=== PATIENT | female | born 2000 | race Caucasian/White ===

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

== ENCOUNTER 2022-02-04 12:06 | Emergency (ER) | payer SELFPAY ==
[2022-02-04 12:07] VITALS: BP 131/86; PULSE 100; RESP 18; TEMP 36.1; O2SAT 97; BMI 40.3
[2022-02-04] MEDS: 0.9% Normal Saline 1,000 ML 1000 ML IV (13:48)
[2022-02-04] MEDS: Dicyclomine 20 MG/2 ML Vial IM (13:48)
[2022-02-04] MEDS: Ondansetron 4 MG/2 ML Vial IV (13:48)
--- NOTE | 2022-02-04 13:48 | EX.ED.GENINJ ---
HPI History of Present Illness Chief Complaint: Nausea/Vomiting/Diarrhea Narrative Narrative: Patient presents with nausea vomiting and some diarrhea starting earlier today. She has similar symptoms that her had. She has abdominal cramping. No fevers or chills no chest pain or shortness of breath she does not have any back pain or tearing sensation. No urinary symptoms. She is denying . PFSH PFSH Home Medications buspirone 10 mg PO PRN PRN 02/04/22 [History Last Taken Unknown] omeprazole 20 mg PO DAILY 02/04/22 [History Last Taken Unknown] ondansetron 4 mg PO Q8H #10 tab 02/04/22 [Rx Last Taken Unknown] sertraline [Zoloft] 50 mg PO DAILY 02/04/22 [History Last Taken Unknown] Allergy/AdvReac Type Severity Reaction Status Date / Time No Known Allergies Allergy Verified 10/31/20 15:08 Social History Smoking Status: Current every day smoker tobacco type: e-cigarettes ROS ROS ED ROS Narrative Past medical history: Reviewed Medications: Reviewed Social history: Noncontributory Review of systems: All systems negative except as indicated General: No fever Eyes: No visual changes ENT: No upper airway congestion, normal voice Neck: No neck pain Cardiovascular: No chest pain Respiratory: No shortness of breath or cough Gastrointestinal: As in HPI Genitourinary: No dysuria Musculoskeletal: Denies myalgias no difficulty with ambulation Skin: No rash Neurological: No memory loss, confusion or any focal weakness Psych: No recent behavioral changes Hematologic: No easy bleeding or easy bruising EXAM Physical Exam Narrative Exam Narrative: Physical exam General: Well nourished, Well developed, No Acute Distress Head: Normocephalic, Atraumatic Eyes: Conjunctiva not pale ENT: Moist mucous membranes Neck: Supple, Nontender, No lymphadenopathy Cardiovascular: Regular rate, Regular rhythm Respiratory: No distress, CTA bilaterally Abdomen: Soft, no significant abdominal tenderness Back: Nontender, Normal Inspection. Negative for: CVA tenderness Extremities: Nontender, No edema Skin: Normal color, No rash Neurological: Alert, Normal Strength, Normal Sensation Psychological: Normal affect Const Vital Signs: 02/04/22 12:07 Temperature 96.9 F L Temperature Source Temporal Pulse Rate 100 Respiratory Rate 18 Blood Pressure 131/86 H Blood Pressure Mean 101 Pulse Ox 97 Oxygen Delivery Method Room Air MDM MDM MDM Narrative Medical decision making narrative: Patient is significantly improved after Zofran and IV fluids. Work-up is unremarkable this is likely gastroenteritis, her had similar symptoms. I will discharge in stable condition Lab Data Labs: Laboratory Results - last 24 hr 02/04/22 02/04/22 14:15 14:15 WBC 12.9 H RBC 4.98 Hgb 15.7 H Hct 46.5 MCV 93.4 MCH 31.5 MCHC 33.8 RDW Std Deviation 42.5 RDW Coeff of Keila 12.2 Plt Count 351 MPV 9.6 Immature Gran % (Auto) 0.500 Neut % (Auto) 90.5 H Lymph % (Auto) 6.1 L [place] % (Auto) 2.5 Eos % (Auto) 0.1 Baso % (Auto) 0.3 Absolute Neuts (auto) 11.7 H Absolute Lymphs (auto) 0.78 L Nucleated RBC % 0 Sodium 141 Potassium 3.6 Chloride 110 H Carbon Dioxide 28.0 Anion Gap 3 L BUN 8 Creatinine 0.75 Estim Creat Clear Calc 112.01 Est GFR (MDRD) Af Amer 126 Est GFR (MDRD) Non-Af 104 BUN/Creatinine Ratio 10.6 Glucose 101 Calcium 9.2 Total Bilirubin 0.40 AST 19 ALT 32 Alkaline Phosphatase 79 Total Protein 8.0 Albumin 4.1 Globulin 3.9 Albumin/Globulin Ratio 1.1 Discharge Plan Triage Chief Complaint: Nausea/Vomiting/Diarrhea ED Provider: Patrick Pearson Dx/Rx/DC Orders Clinical Impression: Gastroenteritis Instructions: ED Gastroenteritis, Noninfectious Prescriptions: New ondansetron 4 mg tablet,disintegrating 4 mg PO Q8H Qty: 10 RF: 0 No Action buspirone 10 mg Tablet 10 mg PO PRN PRN (Reason: Anxiety) RF: 0 omeprazole 20 mg Capsule,Delayed Release(Dr/Ec) 20 mg PO DAILY RF: 0 sertraline [Zoloft] 50 mg Tablet 50 mg PO DAILY RF: 0 Primary Care Provider: Care Physician,No Primary Referrals: Care Physician,No Primary [Primary Care Provider] - 2 Days Disposition Disposition: Home, Self Care
[2022-02-04 14:31] LABS: Absolute Lymphocyte Count 0.78 X10^3/uL (0.83-4.51); Absolute Neutrophil Count 11.7 X10^3/uL (2.0-7.7); Basophil# 0.04 X10^3/uL; Basophil% 0.3 % (0-1); Eosinophil# 0.01 X10^3/uL; Eosinophils% 0.1 % (0-5); Hematocrit 46.5 % (37-47); Hemoglobin 15.7 g/dL (12.0-15.0); Lymphocyte # 0.78 X10^3/ul (0.83-4.51); Lymphocyte % 6.1 % (19-41); Mean Corp Hgb Conc 33.8 g/dL (32-36); Mean Corpuscular Hgb 31.5 pg (27.0-32.0); Mean Corpuscular Volume 93.4 fL (81-99); Mean Platelet Vol. 9.6 fl (6.2-12.0); Monocyte# 0.32 X10^3/uL; Monocyte% 2.5 % (0-10); NRBC Flagged by Analyzer 0 % (0-5); Neutrophil # 11.66 X10^3/uL (2.7-7.7); Neutrophil % 90.5 % (47-70); Platelet Count 351 K/mm3 (150-450); RBC Distribution Width CV 12.2 % (11.6-14.6); RBC Distribution Width SD 42.5 fl (35.1-43.9); Red Blood Count 4.98 M/mm3 (4.2-5.4); White Blood Count 12.9 K/mm3 (4.4-11.0)
[2022-02-04 14:50] LABS: ALB/GLOB Ratio 1.1 RATIO (0.9-2.4); AST(SGOT) 19 U/L (15-37); Alanine Aminotransfer ALT/SGPT 32 U/L (13-56); Albumin, Serum 4.1 g/dL (3.2-5.0); Alkaline Phosphatase 79 U/L (45-117); Anion Gap 3 (5-15); BUN 8 mg/dL (7-18); BUN/Creat Ratio 10.6 RATIO (10-20); Calcium,Total 9.2 mg/dL (8.5-10.1); Chloride 110 mmol/L (98-107); Creatinine, Serum 0.75 mg/dL (0.55-1.02); EST Glomerular Filtration Rate 104 mL/min (>60); Est Glom Filt Rate - Afr Amer 126 mL/min (>60); Estimated Creatinine Clearance 112.01 ml/min; Globulin 3.9 g/dL (2.2-4.2); Glucose 101 mg/dL (74-106); Potassium 3.6 mmol/L (3.5-5.1); Sodium Level 141 mmol/L (136-145)
== END 2022-02-04 16:17 | disposition home or self-care (01) ==
PROVIDERS: Emergency Provider Emergency Medicine; Visit Provider Emergency Medicine
DX: K52.9 Noninfective gastroenteritis and colitis, unspecified (principal); F17.290 Nicotine dependence, other tobacco product, uncomplicated; Z79.899 Other long term (current) drug therapy
CPT/HCPCS: 80053; 85025; 96361; 96372; 96374; 99284; J7030; A4216; J2405

== ENCOUNTER → 2024-11-14 | Outpatient (CLI) | payer MEDICAID, SELFPAY ==
[2024-11-18 05:06] LABS: Chlamydia By Nucleic Acid AMP Negative (Negative); Gonococcus By Nucleic Acid AMP Negative (Negative)
== END | disposition home or self-care (01) ==
PROVIDERS: Referring Provider Nurse Practitioner Women's Health; Visit Provider Nurse Practitioner Women's Health
DX: N89.8 Other specified noninflammatory disorders of vagina (principal); Z20.2 Contact with and (suspected) exposure to infections with a predominantly sexual mode of transmission
CPT/HCPCS: 87070; 87205; 87491; 87591

== ENCOUNTER → 2024-12-17 | Outpatient (CLI) | payer MEDICAID, SELFPAY ==
--- NOTE | 2024-12-17 13:58 | US_ITS ---
PROCEDURE: TRANSVAGINAL NON- REASON FOR EXAM: Amenorrhea COMPARISON: None. TECHNIQUE: Transvaginal pelvic ultrasound. Color and spectral doppler analysis of the ovaries. FINDINGS: Measurements: Uterus: 6.6 x 4.6 x 3.8 cm Endometrial Thickness: 3.1 mm. Right Ovary: 3.8 x 2.7 x 3.4 cm Left Ovary: 3.0 x 1.2 x 1.6 cm Uterus: Anteverted. Normal contour and myometrial echotexture. Endometrium: Normal echotexture. No focal process is identified. Right ovary: A right ovarian follicular cyst is measured at 2.2 x 2.1 x 2.2 cm. No mass is seen. Left ovary: Normal size and echotexture. No mass is evident. Other adnexal findings: None. Cul-de-sac: No free intraperitoneal fluid identified. No tenderness. The urinary bladder appears empty. Normal-appearing cervix. DOPPLER: Color Doppler: Normal color flow doppler signal at both ovaries. Spectral Doppler: Normal arterial inflow and venous outflow signal at both ovaries. US/Transvaginal Non- IMPRESSION: 1. Right ovarian follicular cyst. 2. No acute process is seen. Reading Location: [id number]
== END | disposition home or self-care (01) ==
LOC: US 13:57
PROVIDERS: Referring Provider Nurse Practitioner Women's Health; Visit Provider Nurse Practitioner Women's Health
DX: N91.2 Amenorrhea, unspecified (principal)
CPT/HCPCS: 76830

== ENCOUNTER → 2024-12-23 | Outpatient (CLI) | payer MEDICAID, SELFPAY ==
[2024-12-23 17:00] LABS: Absolute Lymphocyte Count 2.48 X10^3/uL (0.83-4.51); Absolute Neutrophil Count 5.7 X10^3/uL (2.0-7.7); Basophil# 0.07 X10^3/uL; Basophil% 0.8 % (0-1); Eosinophil# 0.28 X10^3/uL; Eosinophils% 3.1 % (0-5); Hematocrit 47.1 % (37-47); Hemoglobin 15.5 g/dL (12.0-15.0); Lymphocyte # 2.48 X10^3/ul (0.83-4.51); Lymphocyte % 27.7 % (19-41); Mean Corp Hgb Conc 32.9 g/dL (32-36); Mean Corpuscular Hgb 30.8 pg (27.0-32.0); Mean Corpuscular Volume 93.5 fL (81-99); Mean Platelet Vol. 10.2 fl (6.2-12.0); Monocyte# 0.41 X10^3/uL; Monocyte% 4.6 % (0-10); NRBC Flagged by Analyzer 0 % (0-5); Neutrophil # 5.67 X10^3/uL (2.7-7.7); Neutrophil % 63.4 % (47-70); Platelet Count 349 K/mm3 (150-450); RBC Distribution Width CV 12.2 % (11.6-14.6); RBC Distribution Width SD 41.8 fl (35.1-43.9); Red Blood Count 5.04 M/mm3 (4.2-5.4)
[2024-12-23 17:32] LABS: T4 Free Direct 0.98 ng/dL (0.76-1.46)
[2024-12-25 13:07] LABS: Thyroid Peroxidase AB 12 IU/mL (0-34)
== END | disposition home or self-care (01) ==
LOC: BWCLAB 15:29
PROVIDERS: Referring Provider Nurse Practitioner Women's Health; Visit Provider Nurse Practitioner Women's Health
DX: Z13.29 Encounter for screening for other suspected endocrine disorder (principal); N91.2 Amenorrhea, unspecified
CPT/HCPCS: 36415; 84439; 84443; 85025; 86376

== ENCOUNTER 2024-12-25 14:00 | Outpatient (CLI) | payer MEDICAID, SELFPAY ==
[2024-12-25 16:52] LABS: AST(SGOT) 16 U/L (15-37); Alanine Aminotransfer ALT/SGPT 46 U/L (13-56); Albumin, Serum 3.7 g/dL (3.2-5.0); Alkaline Phosphatase 75 U/L (45-117); Anion Gap 6 (5-15); BUN 11 mg/dL (7-18); BUN/Creat Ratio 13.7 RATIO (10-20); Chloride 107 mmol/L (98-107); EST Glomerular Filtration Rate 94 mL/min (>60); Est Glom Filt Rate - Afr Amer 114 mL/min (>60); Globulin 3.8 g/dL (2.2-4.2); Glucose 93 mg/dL (74-106); Potassium 3.9 mmol/L (3.5-5.1); Protein, Total 7.5 g/dL (6.4-8.2); Sodium Level 137 mmol/L (136-145)
[2024-12-25 17:50] LABS: Vitamin D,25 Hydroxy 19.4 ng/mL
== END 2024-12-25 23:59 | disposition home or self-care (01) ==
LOC: BIMLAB 14:00
PROVIDERS: PCP Internal Medicine; Referring Provider Internal Medicine; Visit Provider Internal Medicine
DX: Z76.89 Persons encountering health services in other specified circumstances (principal)
CPT/HCPCS: 36415; 80053; 82306

== ENCOUNTER → 2025-03-12 | Outpatient (CLI) | payer MEDICAID, SELFPAY ==
[2025-03-12 17:40] LABS: hCG Titer Quant., Serum 552 mIU/mL (<9 non-preg)
== END | disposition home or self-care (01) ==
PROVIDERS: PCP Internal Medicine; Referring Provider Obstetrics & Gynecology; Visit Provider Obstetrics & Gynecology
DX: N91.2 Amenorrhea, unspecified (principal)
CPT/HCPCS: 36415; 84702

== ENCOUNTER → 2025-03-14 | Outpatient (CLI) | payer MEDICAID, SELFPAY ==
[2025-03-14 17:47] LABS: hCG Titer Quant., Serum 1074 mIU/mL (<9 non-preg)
== END | disposition home or self-care (01) ==
PROVIDERS: PCP Internal Medicine; Referring Provider Obstetrics & Gynecology; Visit Provider Obstetrics & Gynecology
DX: N91.2 Amenorrhea, unspecified (principal)
CPT/HCPCS: 36415; 76817; 84702

== ENCOUNTER → 2025-03-14 | Outpatient (CLI) | payer MEDICAID, SELFPAY ==
--- NOTE | 2025-03-14 16:22 | US_ITS ---
PROCEDURE: TRANSVAGINAL W/PREG US 03/14/2025 REASON FOR EXAM: VIABILITY TECHNIQUE: High resolution obstetric ultrasound performed using a 2D transducer. Transabdominal and transvaginal ultrasound COMPARISON: December 17, 2024 FINDINGS There is an intrauterine gestational sac measuring 0.3 cm, 5 weeks 0 days. heart motion is not identified at this time. Estimated due date by ultrasound November 14, 2025. The uterus measures 7.9 x 5.9 x 4.7 cm. There is no uterine fibroid or mass. The cervix appears closed. There is no fluid in the cul-de-sac. The right ovary measures 4.0 x 3.2 x 3.4 cm and has a 2.0 x 2.0 x 2.4 cm follicle. The left ovary measures 3.2 x 1.4 x 1.8 cm. There is no adnexal mass. US/Transvaginal w/Preg US IMPRESSION: There is an intrauterine gestational sac measuring 0.3 cm, 5 weeks 0 days. Fet al heart motion is not identified at this time. Estimated due date by ultrasound November 14, 2025. Reading Location: [facility]
== END | disposition home or self-care (01) ==
LOC: US 16:21
PROVIDERS: PCP Internal Medicine; Referring Provider Obstetrics & Gynecology; Visit Provider Obstetrics & Gynecology
DX: R10.2 Pelvic and perineal pain (principal); N91.2 Amenorrhea, unspecified
CPT/HCPCS: 76817

== ENCOUNTER → 2025-03-28 | Outpatient (CLI) | payer MEDICAID, SELFPAY ==
--- NOTE | 2025-03-28 10:52 | US_ITS ---
PROCEDURE: TRANSVAGINAL W/PREG US 03/28/2025 REASON FOR EXAM: VIABILITY TECHNIQUE: High resolution obstetric ultrasound performed using a 2D transducer. Standard views obtained, including biometry, anatomy survey, and Doppler studies. FINDINGS Transvaginal imaging Single live intrauterine with heart tones 111 beats per minute measuring 6 weeks and 5 days by mean sac diameter, 6 weeks 5 days by crown-rump length fundal portion of the uterus. No periceliac hemorrhage. 3 mm yolk sac noted. Estimated gestational age by ultrasound 6 weeks 5 days, BRIANA 11/16/2025 Estimated gestational age by LMP 7 weeks 4 days, BRIANA 11/10/2025 The uterus measures 8.7 x 6.9 x 5.9 cm and appears within limits. The cervix appears closed. The right ovary is not identified. The left ovary measures 3.6 x 2.2 x 2 cm and appears within limits. No evidence of adnexal mass. No free fluid seen. US/Transvaginal w/Preg US IMPRESSION: Single live intrauterine as above. Reading Location: [id number]
== END | disposition home or self-care (01) ==
LOC: US 10:51
PROVIDERS: PCP Internal Medicine; Referring Provider Nurse Practitioner Women's Health; Visit Provider Nurse Practitioner Women's Health
DX: Z34.90 Encounter for supervision of normal pregnancy, unspecified, unspecified trimester (principal)
CPT/HCPCS: 76817

== ENCOUNTER → 2025-04-07 | Outpatient (CLI) | payer MEDICAID, SELFPAY ==
[2025-04-07 18:14] LABS: Amphetamine Urine NEGATIVE (<1000 ng/mL); Barbiturate Urine NEGATIVE (< 200 ng/mL); Benzodiazepine Urine NEGATIVE (< 200 ng/mL); Buprenorphine Urine NEGATIVE (< 200 ng/mL); Cocaine Urine NEGATIVE (< 300 ng/mL); Fentanyl, Urine NEGATIVE; Methadone Urine NEGATIVE (< 300 ng/mL); Opiates Urine NEGATIVE (< 300 ng/mL); Oxycodone, Urine NEGATIVE (< 100 ng/mL); PCP Urine NEGATIVE (< 25 ng/mL); THC Urine PRESUMPTIVE POSITIVE (< 50 ng/mL)
[2025-04-09 21:08] LABS: Chlamydia By Nucleic Acid AMP Negative (Negative); Gonococcus By Nucleic Acid AMP Negative (Negative)
== END | disposition home or self-care (01) ==
LOC: LABSPEC 15:48
PROVIDERS: PCP Internal Medicine; Referring Provider Advanced Practice Midwife; Visit Provider Advanced Practice Midwife
DX: O09.90 Supervision of high risk pregnancy, unspecified, unspecified trimester (principal); F12.91 Cannabis use, unspecified, in remission; Z3A.00 Weeks of gestation of pregnancy not specified; O99.320 Drug use complicating pregnancy, unspecified trimester
CPT/HCPCS: 80307; 87086; 87088; 87491; 87591; 88175; G0145

== ENCOUNTER → 2025-04-25 | Outpatient (CLI) | payer MEDICAID, SELFPAY | END | disposition home or self-care (01) | LOC: LABSPEC 15:04 | PROVIDERS: PCP Internal Medicine; Referring Provider Advanced Practice Midwife; Visit Provider Advanced Practice Midwife | DX: O09.90 Supervision of high risk pregnancy, unspecified, unspecified trimester (principal); Z3A.00 Weeks of gestation of pregnancy not specified | CPT/HCPCS: 87086 ==

== ENCOUNTER 2025-05-01 13:26 | Outpatient (CLI) | payer MEDICAID, SELFPAY ==
[2025-05-01 13:38] VITALS: BP 111/72; PULSE 82; RESP 16; TEMP 36.7; O2SAT 100; BMI 41.0
[2025-05-01] MEDS: 0.9% NaCl Peripheral Flush Adult IV (13:55)
[2025-05-01] MEDS: Ondansetron 4 MG/2 ML Vial IV (13:55)
[2025-05-01] MEDS: Dextrose 5%-Lactated Ringers 1,000 ML 999 ML IV (13:59)
[2025-05-01 15:11] VITALS: BP 113/80; PULSE 76
== END 2025-05-01 23:59 | disposition home or self-care (01) ==
LOC: MEDOUTP 13:27
PROVIDERS: PCP Internal Medicine; Referring Provider Nurse Practitioner Women's Health; Visit Provider Nurse Practitioner Women's Health
DX: O21.9 Vomiting of pregnancy, unspecified (principal); O99.280 Endocrine, nutritional and metabolic diseases complicating pregnancy, unspecified trimester; E86.0 Dehydration; Z3A.00 Weeks of gestation of pregnancy not specified
CPT/HCPCS: 96374; 96361; A4216; J2405

== ENCOUNTER 2025-05-02 14:13 | Outpatient (CLI) | payer MEDICAID, SELFPAY ==
[2025-05-02] MEDS: Dextrose 5%-Lactated Ringers 1,000 ML 999 ML IV (14:23)
[2025-05-02 14:24] VITALS: BP 117/67; PULSE 85; RESP 16; TEMP 36.7; O2SAT 98; BMI 41.0
[2025-05-02] MEDS: proMETHazine 25 MG/ML Syringe 12.5 MG IM (14:30)
[2025-05-02] MEDS: 0.9% NaCl Peripheral Flush Adult IV (14:32)
[2025-05-02] MEDS: Ondansetron 4 MG/2 ML Vial IV (14:52)
[2025-05-02 15:30] VITALS: BP 109/61; PULSE 69; RESP 16; TEMP 36.2; O2SAT 100
== END 2025-05-02 23:59 | disposition home or self-care (01) ==
LOC: MEDOUTP 14:14
PROVIDERS: PCP Internal Medicine; Referring Provider Obstetrics & Gynecology; Visit Provider Obstetrics & Gynecology
DX: O21.9 Vomiting of pregnancy, unspecified (principal); O99.280 Endocrine, nutritional and metabolic diseases complicating pregnancy, unspecified trimester; E86.0 Dehydration; Z3A.00 Weeks of gestation of pregnancy not specified
CPT/HCPCS: 96365; 96375; 96372; A4216; J2405

== ENCOUNTER → 2025-05-12 | Outpatient (CLI) | payer MEDICAID, SELFPAY ==
[2025-05-12 17:14] LABS: Absolute Lymphocyte Count 1.34 X10^3/uL (0.83-4.51); Absolute Neutrophil Count 8.1 X10^3/uL (2.0-7.7); Basophil# 0.04 X10^3/uL; Basophil% 0.4 % (0-1); Eosinophil# 0.14 X10^3/uL; Eosinophils% 1.4 % (0-5); Hematocrit 40.3 % (37-47); Hemoglobin 13.6 g/dL (12.0-15.0); Lymphocyte # 1.34 X10^3/ul (0.83-4.51); Lymphocyte % 13.1 % (19-41); Mean Corp Hgb Conc 33.7 g/dL (32-36); Mean Corpuscular Hgb 31.6 pg (27.0-32.0); Mean Corpuscular Volume 93.5 fL (81-99); Mean Platelet Vol. 10.3 fl (6.2-12.0); Monocyte# 0.58 X10^3/uL; Monocyte% 5.7 % (0-10); NRBC Flagged by Analyzer 0 % (0-5); Neutrophil # 8.08 X10^3/uL (2.7-7.7); Neutrophil % 78.8 % (47-70); Platelet Count 285 K/mm3 (150-450); RBC Distribution Width CV 12.2 % (11.6-14.6); RBC Distribution Width SD 42.4 fl (35.1-43.9); Red Blood Count 4.31 M/mm3 (4.2-5.4); White Blood Count 10.2 K/mm3 (4.4-11.0)
[2025-05-12 17:42] LABS: HIV Nonreactive (Nonreactive); Hepatitis B Surface Antigen Nonreactive (Nonreactive); Hepatitis C Antibody Nonreactive (Nonreactive); Rubella IgG REAC (Nonreactive); Syphilis Antibodies Nonreactive (Nonreactive)
== END | disposition home or self-care (01) ==
PROVIDERS: Advanced Practice Midwife; PCP Internal Medicine; Referring Provider Obstetrics & Gynecology; Visit Provider Obstetrics & Gynecology
DX: Z34.82 Encounter for supervision of other normal pregnancy, second trimester (principal)
CPT/HCPCS: 36415; 83036; 85025; 86703; 86762; 86780; 86803; 86850; 86900; 86901; 87077; 87086; 87088; 87340

== ENCOUNTER 2025-05-22 10:55 | Emergency (ER) | payer MEDICAID, SELFPAY ==
[2025-05-22 10:55] VITALS: BP 148/84; PULSE 127; PULSE 148; RESP 12; TEMP 35.7; O2SAT 98; BMI 39.9
[2025-05-22 11:15] VITALS: BP 140/74; PULSE 105; RESP 19; O2SAT 98
[2025-05-22 12:07] VITALS: BP 116/71; PULSE 100; RESP 23; O2SAT 96
[2025-05-22] MEDS: 0.9% Normal Saline (1000mL) 1,000 ML 999 ML IV (12:42)
[2025-05-22 12:51] LABS: Hematocrit 40.3 % (37-47); Hemoglobin 13.9 g/dL (12.0-15.0); Immature Granulocytes Count 0.040 X10^3/uL (0.0-0.0); Mean Corp Hgb Conc 34.5 g/dL (32-36); Mean Corpuscular Volume 92.9 fL (81-99); Mean Platelet Vol. 10.0 fl (6.2-12.0); NRBC Flagged by Analyzer 0 % (0-5); Platelet Count 275 K/mm3 (150-450); RBC Distribution Width CV 12.5 % (11.6-14.6); RBC Distribution Width SD 42.7 fl (35.1-43.9); Red Blood Count 4.34 M/mm3 (4.2-5.4); White Blood Count 8.9 K/mm3 (4.4-11.0)
[2025-05-22 13:20] LABS: Anion Gap 12 (5-15); BUN 4 mg/dL (4-19); BUN/Creat Ratio 6.1 RATIO (10-20); Calcium,Total 9.2 mg/dL (7.6-11.0); Carbon Dioxide 19.8 mmol/L (21.0-32.0); Chloride 106 mmol/L (98-108); Estimated Creatinine Clearance 191.80 ml/min (50-250); Glucose 88 mg/dL (70-99); Potassium 3.5 mmol/L (3.3-5.1); Troponin T High Sensitivity < 6 ng/L (<=14)
[2025-05-22 13:48] VITALS: BP 145/83; PULSE 82; RESP 15; O2SAT 98
[2025-05-22 15:01] VITALS: BP 120/69; BP 136/79; BP 153/87; PULSE 104; PULSE 92; PULSE 97; RESP 16; O2SAT 98
[2025-05-22 15:26] VITALS: BP 135/78; PULSE 91; RESP 20; TEMP 35.7; O2SAT 100
== END 2025-05-22 15:27 | disposition home or self-care (01) ==
PROVIDERS: Emergency Provider Emergency Medicine; PCP Internal Medicine; Referring Provider Emergency Medicine; Visit Provider Emergency Medicine
DX: O99.891 Other specified diseases and conditions complicating pregnancy (principal); O21.9 Vomiting of pregnancy, unspecified; R00.2 Palpitations; Z87.891 Personal history of nicotine dependence; R06.02 Shortness of breath; R07.9 Chest pain, unspecified; K21.9 Gastro-esophageal reflux disease without esophagitis; R51.9 Headache, unspecified; O99.612 Diseases of the digestive system complicating pregnancy, second trimester; Z3A.14 14 weeks gestation of pregnancy; R42 Dizziness and giddiness
CPT/HCPCS: 71045; 80048; 84484; 85025; 93005; 96360; 96361; 99285; A4216

== ENCOUNTER 2025-06-03 17:59 | Emergency (ER) | payer MEDICAID, SELFPAY ==
[2025-06-03 18:00] VITALS: BP 127/78; PULSE 95; RESP 17; TEMP 36.6; O2SAT 100; BMI 40.3
--- NOTE | 2025-06-03 18:38 | ED.VIS.LOWEX ---
HPI History of Present Illness HPI Narrative: Patient presents with pain to her left foot that occurred today. Patient states she fell and her foot was hyper plantarflexed under her. Patient describes her pain as sharp. Patient states it is worse with weightbearing. Patient admits to some numbness and tingling into her toes. Patient denies any weakness. Patient states she went to urgent care and she was given a walking boot. Patient states that they did not want to do an x-ray there because she has 16 weeks . Patient states she called her OIL FIELD WORKER who referred to the emergency department. Chief Complaint: Lower Extremity Injury Informant: patient Occured/Mechanism Mechanism/Context: Yes fall Onset/Context/Timing Onset: Today Context: Sudden Onset Timing: Continuous Quality of Pain: Sharp Location: Left foot Worsened by: Weightbearing Relieved by: Nothing Associated Symptoms Associated Symptoms: Positive for Parasthesia; Negative for Weakness or Loss of Funtion PFSH [facility] Medical History Seasonal allergies Anxiety Home Medications ?Medication ?Instructions ?Recorded ?Last Taken ?Type sertraline 50 mg tablet (Zoloft) 100 mg PO QDAY 12/25/24 Unknown History multivit-min no.71-iron fum 28 cap PO 03/27/25 Unknown History mg-folate no.1 1 mg-dha 300 mg capsule ([facility]-[place]) fosfomycin tromethamine 3 gram 3 g PO ONCE #1 ea 04/25/25 Unknown Rx oral packet ondansetron 4 mg disintegrating 4 mg PO Q4H PRN nausea and 05/27/25 Unknown Rx tablet vomiting #60 tabs Allergy/AdvReac Type Severity Reaction Status Date / Time No Known Allergies Allergy Verified 06/03/25 18:03 Family History Grandmother Hypertension Maternal Grandfather Colon cancer Paternal- age of onset unknown Grandmother Diabetes Paternal Depression Maternal Surgical History S/P tonsillectomy S/P knee surgery Social History adopted: No household members: spouse and children housing: house number of children: 1 current occupational status: unemployed current occupational exposures/hazards: No pets and animals: Yes (Avoid litter box) pets and animals: cat(s) and dog(s) history of recent travel: No sexually active: Yes Smoking Status: Former smoker Electronic Cigarette Use: with nicotine alcohol intake: current alcohol intake frequency: holidays/special occasions only details: Not after finding out substance use type: marijuana well-balanced diet: daily or most days caffeine: Yes Type: carbonated beverages Number of servings: 2 eating out: rarely or never during the past year weight has: remained stable what type of physical activity do you participate in: walking frequency: daily duration: 30-45 minutes/day ty/episcopalian: None seatbelt use: always do you feel safe at home: Yes additional social history: - Edgar- Norma Cruz( Still lives in [place]) ROS ROS ED Constitutional Constitutional ED: Denies chills or fever(s) Eyes Eyes: Denies blurry vision or change in vision ENT ENT ED: Denies rhinorrhea or sore throat Cardiovascular Cardiovascular: Denies chest pain or palpitations Respiratory/Chest Respiratory/Chest: Denies cough or dyspnea Gastrointestinal Gastrointestinal: Denies nausea or vomiting Genitourinary Genitourinary ED: Denies dysuria or hematuria Musculoskeletal Musculoskeletal: Denies back pain or neck pain Integumentary Denies abscess or rash Neurologic Neurologic: Denies headache(s) or weakness Allergic/Immunologic Allergic/Immunologic ED: Denies mouth swelling or urticaria EXAM Physical Exam Const Vital Signs: 06/03/25 18:00 06/03/25 20:09 Temperature 97.9 F 97.9 F Temperature Source Oral Pulse Rate 95 84 Respiratory Rate 17 15 Blood Pressure 127/78 H 126/80 H Blood Pressure Mean 94 95 Pulse Ox 100 100 Oxygen Delivery Method Room Air Positive well nourished and well developed General Appearance ED: well developed and NAD HEENT Reports moist mucous membranes Neck full ROM and supple Extremity Extremity Narrative: There is tenderness, edema, and ecchymosis over the lateral aspect of the left foot. There is no tenderness over the medial or lateral malleoli. There is no tenderness over the proximal fibula. Pedal pulses are equal bilaterally. Sensation was intact to light touch in all digits. Capillary refills less than 2 seconds in all digits. Range of motion was limited in all motions secondary to the pain. Neuro oriented x3, CN's II-XII intact bilaterally, moves all extremities and no sensory deficits noted Sensorium / Orientation: alert Motor Exam: strength 5/5 throughout MDM MDM MDM Narrative Medical decision making narrative: Differential diagnosis includes fracture, sprain, contusion. X-rays of the left foot will be obtained to assess for fracture. History & Record Review Additional record(s) reviewed:: Prior ED visit Radiography Diagnostic Testing: Clinical Impression(s) from Imaging Studies Foot X-Ray 06/03/25 18:44 IMPRESSION: No acute osseous abnormality of the left foot. Reading Location: [facility] X-rays of the left foot were obtained. There are 3 views. On my independent interpretation, there is no acute fracture. There is no dislocation. There is no soft tissue swelling. Radiologist also interpreted the x-rays and agrees. Treatment and Re-Evaluation Narrative: Patient was advised of her findings. Patient was instructed to ice and elevate the left foot. Patient was instructed continue using her boot as needed. Patient was instructed to follow-up with her primary care physician in 5 to 7 days. Patient understood and was agreeable with the plan. All questions were answered. Discharge Plan Triage Chief Complaint: Lower Extremity Injury ED Provider: Dre Vallecillo Dx/Rx/DC Orders Clinical Impression: Sprain of left foot, Instructions: ED Foot Sprain Prescriptions: No Action sertraline [Zoloft] 50 mg tablet 100 mg PO QDAY [facility] 28-1-300 mg capsule PO fosfomycin tromethamine 3 gram packet 3 g PO ONCE Qty: 1 0RF ondansetron 4 mg tablet,disintegrating 4 mg PO Q4H PRN (Reason: nausea and vomiting) Qty: 60 2RF Primary Care Provider: Jie Rai Referrals: Jie Rai MD [Primary Care Provider] - 5-7 Days Print Language: Vietnamese Disposition Disposition: Home, Self Care Discharge Date/Time: 06/03/25 20:10
--- NOTE | 2025-06-03 18:38 | ED.VIS.LOWEX ---
HPI History of Present Illness HPI Narrative: Patient presents with pain to her left foot that occurred today. Patient states she fell and her foot was hyper plantarflexed under her. Patient describes her pain as sharp. Patient states it is worse with weightbearing. Patient admits to some numbness and tingling into her toes. Patient denies any weakness. Patient states she went to urgent care and she was given a walking boot. Patient states that they did not want to do an x-ray there because she has 16 weeks . Patient states she called her CYBER LEGAL ADVISOR who referred to the emergency department. Chief Complaint: Lower Extremity Injury Informant: patient Occured/Mechanism Mechanism/Context: Yes fall Onset/Context/Timing Onset: Today Context: Sudden Onset Timing: Continuous Quality of Pain: Sharp Location: Left foot Worsened by: Weightbearing Relieved by: Nothing Associated Symptoms Associated Symptoms: Positive for Parasthesia; Negative for Weakness or Loss of Funtion PFSH [facility] Medical History Seasonal allergies Anxiety Home Medications ?Medication ?Instructions ?Recorded ?Last Taken ?Type sertraline 50 mg tablet (Zoloft) 100 mg PO QDAY 12/25/24 Unknown History multivit-min no.71-iron fum 28 cap PO 03/27/25 Unknown History mg-folate no.1 1 mg-dha 300 mg capsule (PNV-[place]) fosfomycin tromethamine 3 gram 3 g PO ONCE #1 ea 04/25/25 Unknown Rx oral packet ondansetron 4 mg disintegrating 4 mg PO Q4H PRN nausea and 05/27/25 Unknown Rx tablet vomiting #60 tabs Allergy/AdvReac Type Severity Reaction Status Date / Time No Known Allergies Allergy Verified 06/03/25 18:03 Family History Grandmother Hypertension Maternal Grandfather Colon cancer Paternal- age of onset unknown Grandmother Diabetes Paternal Depression Maternal Surgical History S/P tonsillectomy S/P knee surgery Social History adopted: No household members: spouse and children housing: house number of children: 1 current occupational status: unemployed current occupational exposures/hazards: No pets and animals: Yes (Avoid litter box) pets and animals: cat(s) and dog(s) history of recent travel: No sexually active: Yes Smoking Status: Former smoker Electronic Cigarette Use: with nicotine alcohol intake: current alcohol intake frequency: holidays/special occasions only details: Not after finding out substance use type: marijuana well-balanced diet: daily or most days caffeine: Yes Type: carbonated beverages Number of servings: 2 eating out: rarely or never during the past year weight has: remained stable what type of physical activity do you participate in: walking frequency: daily duration: 30-45 minutes/day ty/presybeterian: None seatbelt use: always do you feel safe at home: Yes additional social history: - Edgar- Norma Cruz( Still lives in [place]) ROS ROS ED Constitutional Constitutional ED: Denies chills or fever(s) Eyes Eyes: Denies blurry vision or change in vision ENT ENT ED: Denies rhinorrhea or sore throat Cardiovascular Cardiovascular: Denies chest pain or palpitations Respiratory/Chest Respiratory/Chest: Denies cough or dyspnea Gastrointestinal Gastrointestinal: Denies nausea or vomiting Genitourinary Genitourinary ED: Denies dysuria or hematuria Musculoskeletal Musculoskeletal: Denies back pain or neck pain Integumentary Denies abscess or rash Neurologic Neurologic: Denies headache(s) or weakness Allergic/Immunologic Allergic/Immunologic ED: Denies mouth swelling or urticaria EXAM Physical Exam Const Vital Signs: 06/03/25 18:00 06/03/25 20:09 Temperature 97.9 F 97.9 F Temperature Source Oral Pulse Rate 95 84 Respiratory Rate 17 15 Blood Pressure 127/78 H 126/80 H Blood Pressure Mean 94 95 Pulse Ox 100 100 Oxygen Delivery Method Room Air Positive well nourished and well developed General Appearance ED: well developed and NAD HEENT Reports moist mucous membranes Neck full ROM and supple Extremity Extremity Narrative: There is tenderness, edema, and ecchymosis over the lateral aspect of the left foot. There is no tenderness over the medial or lateral malleoli. There is no tenderness over the proximal fibula. Pedal pulses are equal bilaterally. Sensation was intact to light touch in all digits. Capillary refills less than 2 seconds in all digits. Range of motion was limited in all motions secondary to the pain. Neuro oriented x3, CN's II-XII intact bilaterally, moves all extremities and no sensory deficits noted Sensorium / Orientation: alert Motor Exam: strength 5/5 throughout MDM MDM MDM Narrative Medical decision making narrative: Differential diagnosis includes fracture, sprain, contusion. X-rays of the left foot will be obtained to assess for fracture. History & Record Review Additional record(s) reviewed:: Prior ED visit Radiography Diagnostic Testing: Clinical Impression(s) from Imaging Studies Foot X-Ray 06/03/25 18:44 IMPRESSION: No acute osseous abnormality of the left foot. Reading Location: [facility] X-rays of the left foot were obtained. There are 3 views. On my independent interpretation, there is no acute fracture. There is no dislocation. There is no soft tissue swelling. Radiologist also interpreted the x-rays and agrees. Treatment and Re-Evaluation Narrative: Patient was advised of her findings. Patient was instructed to ice and elevate the left foot. Patient was instructed continue using her boot as needed. Patient was instructed to follow-up with her primary care physician in 5 to 7 days. Patient understood and was agreeable with the plan. All questions were answered. Discharge Plan Triage Chief Complaint: Lower Extremity Injury ED Provider: Dre Vallecillo Dx/Rx/DC Orders Clinical Impression: Sprain of left foot, Instructions: ED Foot Sprain Prescriptions: No Action sertraline [Zoloft] 50 mg tablet 100 mg PO QDAY P[facility]-[place] 28-1-300 mg capsule PO fosfomycin tromethamine 3 gram packet 3 g PO ONCE Qty: 1 0RF ondansetron 4 mg tablet,disintegrating 4 mg PO Q4H PRN (Reason: nausea and vomiting) Qty: 60 2RF Primary Care Provider: Jie Rai Referrals: Jie Rai MD [Primary Care Provider] - 5-7 Days Print Language: Georgian Disposition Disposition: Home, Self Care Discharge Date/Time: 06/03/25 20:10
--- NOTE | 2025-06-03 18:44 | RAD_ITS ---
PROCEDURE: FOOT MIN 3 VIEWS 06/03/2025 REASON FOR EXAM: INJURY/PAIN TECHNIQUE: FOOT MIN 3 VIEWS COMPARISON: None FINDINGS: No acute fracture or traumatic malalignment. Bone mineral density is subjectively normal. Joint spaces are maintained. Soft tissues are unremarkable. RAD/Foot min 3 Views IMPRESSION: No acute osseous abnormality of the left foot. Reading Location: [facility]
--- NOTE | 2025-06-03 18:44 | RAD_ITS ---
PROCEDURE: FOOT MIN 3 VIEWS 06/03/2025 REASON FOR EXAM: INJURY/PAIN TECHNIQUE: FOOT MIN 3 VIEWS COMPARISON: None FINDINGS: No acute fracture or traumatic malalignment. Bone mineral density is subjectively normal. Joint spaces are maintained. Soft tissues are unremarkable. RAD/Foot min 3 Views IMPRESSION: No acute osseous abnormality of the left foot. Reading Location: [facility]
[2025-06-03 20:09] VITALS: BP 126/80; PULSE 84; RESP 15; TEMP 36.6; O2SAT 100
== END 2025-06-03 20:10 | disposition home or self-care (01) ==
PROVIDERS: Emergency Provider Emergency Medicine; PCP Internal Medicine; Visit Provider Emergency Medicine
DX: O9A.212 Injury, poisoning and certain other consequences of external causes complicating pregnancy, second trimester (principal); Z87.891 Personal history of nicotine dependence; W19.XXXA Unspecified fall, initial encounter; Z3A.16 16 weeks gestation of pregnancy; S93.602A Unspecified sprain of left foot, initial encounter
CPT/HCPCS: 73630; 99282

== ENCOUNTER → 2025-06-13 | Outpatient (CLI) | payer MEDICAID, SELFPAY | END | disposition home or self-care (01) | LOC: LABSPEC 17:03 | PROVIDERS: PCP Internal Medicine; Referring Provider Advanced Practice Midwife; Visit Provider Advanced Practice Midwife | DX: O09.90 Supervision of high risk pregnancy, unspecified, unspecified trimester (principal); Z3A.00 Weeks of gestation of pregnancy not specified | CPT/HCPCS: 87086; 87088 ==

== ENCOUNTER 2025-06-18 11:47 | Emergency (ER) | payer MEDICAID, SELFPAY ==
[2025-06-18 11:49] VITALS: BP 135/85; PULSE 97; RESP 16; TEMP 36.7; O2SAT 100; BMI 38.9
--- NOTE | 2025-06-18 12:39 | ED.VIS.FEGU ---
HPI <Dr. Anamaria Fountain MD - Last Filed: 06/18/25 16:15> HPI - Female History of Present Illness Chief Complaint: Narrative Narrative: Patient is a 25-year-old female who is 18 weeks presenting to the emergency department with right sided lower to mid abdominal pain. Patient states that the pain started around 7 AM this morning when she woke up. She states has been experiencing round ligament pain but this feels slightly worse than normal. She denies any vaginal bleeding or discharge. Denies any pelvic pain. Denies fever or chills. Endorses some mild nausea, no vomiting. No changes to bowel habits. Denies any urinary symptoms including dysuria, hematuria. States she is still feeling baby move. Denies any trauma to her abdomen. She took tylenol this morning with no relief of the pain. States that it is exacerbated by movement. PFSH <Dr. Anamaria Fountain MD - Last Filed: 06/18/25 16:15> [facility] Medical History Current every day vaping Seasonal allergies Anxiety Home Medications ?Medication ?Instructions ?Recorded ?Last Taken ?Type multivit-min no.71-iron fum 28 cap PO 03/27/25 Unknown History mg-folate no.1 1 mg-dha 300 mg capsule (PN[facility]-[place]) Allergy/AdvReac Type Severity Reaction Status Date / Time No Known Allergies Allergy Verified 06/18/25 11:52 Family History Grandmother Hypertension Maternal Grandfather Colon cancer Paternal- age of onset unknown Grandmother Diabetes Paternal Depression Maternal Surgical History S/P tonsillectomy S/P knee surgery Social History adopted: No household members: spouse and children housing: house number of children: 1 current occupational status: unemployed current occupational exposures/hazards: No pets and animals: Yes (Avoid litter box) pets and animals: cat(s) and dog(s) history of recent travel: No sexually active: Yes Smoking Status: Former smoker Electronic Cigarette Use: with nicotine alcohol intake: current alcohol intake frequency: holidays/special occasions only details: Not after finding out substance use type: marijuana well-balanced diet: daily or most days caffeine: Yes Type: carbonated beverages Number of servings: 2 eating out: rarely or never during the past year weight has: remained stable what type of physical activity do you participate in: walking frequency: daily duration: 30-45 minutes/day ty/tenriism: None seatbelt use: always do you feel safe at home: Yes additional social history: - Edgar- Norma Cruz( Still lives in [place]) ROS <Dr. Anamaria Fountain MD - Last Filed: 06/18/25 16:15> ROS ED ROS Narrative Patient denies fever or chills. Denies cough, chest pain, palpitations or shortness of breath. Endorses abdominal pain and nausea. Denies vomiting. Denies dysuria, hematuria, vaginal bleeding, discharge or pelvic pain. EXAM <Dr. Anamaria Fountain MD - Last Filed: 06/18/25 16:15> Physical Exam Const Vital Signs: 06/18/25 11:49 06/18/25 15:48 06/18/25 17:00 Temperature 98.1 F Temperature Source Oral Pulse Rate 97 87 69 Respiratory Rate 16 16 18 Blood Pressure 135/85 H 135/84 H 124/78 H Blood Pressure Mean 101 101 93 Pulse Ox 100 100 98 Oxygen Delivery Method Room Air Room Air Room Air 06/18/25 18:54 Temperature 97.7 F L Temperature Source Pulse Rate 88 Respiratory Rate 16 Blood Pressure 131/87 H Blood Pressure Mean 101 Pulse Ox 99 Oxygen Delivery Method Positive well nourished and well developed General Appearance ED: well developed; Negative for NAD Eyes PERRL General Eye ED: Yes scleral icterus Chest Wall Chest: other Cardio regular rate, regular rhythm, no murmurs and no JVD GI normal to inspection, nondistended, normoactive bowel sounds GI Narrative: some mild tenderness to palpation in the right middle to lower quadrant. No rebound tenderness. No guarding Palpation: Negative for guarding, rigid or hepatomegaly Back/Spine Negative for no CVA tenderness Neuro oriented x3 Sensorium / Orientation: alert Skin no rashes or lesions noted <Dr. Ryan Mantilla DO - Last Filed: 06/18/25 23:36> Physical Exam Const Vital Signs: 06/18/25 11:49 06/18/25 15:48 06/18/25 17:00 Temperature 98.1 F Temperature Source Oral Pulse Rate 97 87 69 Respiratory Rate 16 16 18 Blood Pressure 135/85 H 135/84 H 124/78 H Blood Pressure Mean 101 101 93 Pulse Ox 100 100 98 Oxygen Delivery Method Room Air Room Air Room Air 06/18/25 18:54 Temperature 97.7 F L Temperature Source Pulse Rate 88 Respiratory Rate 16 Blood Pressure 131/87 H Blood Pressure Mean 101 Pulse Ox 99 Oxygen Delivery Method MDM <Dr. Anamaria Fountain MD - Last Filed: 06/18/25 16:15> [facility] Narrative Medical decision making narrative: Patient is a 25-year-old female G2, P1, 18 weeks presenting to the emergency department for right middle to lower quadrant abdominal pain that started at 7 AM this morning. Patient was seen and examined. Resting bed comfortably in no acute distress. States that she has had round ligament pain in the past and this feels similar in type of pain but worse. She is denying any vaginal bleeding, pelvic pain or discharge. Labs including CBC, CMP, urinalysis as well as heart tones and a transabdominal ultrasound were ordered. Differential includes but is not limited to: likely MSK, UTI less likely appendicitis, nephrolithiasis, pyelonephritis, HELLP, biliary colic, cholecystitis, choledocholithiasis. CBC with no leukocytosis and a normal hemoglobin. Normal platelets. With pain that is worse with movements and come and goes and no WBC, less likely appendicitis. Urinalysis with no evidence of infection or bacteria. No UTI or pyelo. No CVA tenderness to suspect nephrolithiasis and no RBCs in urine. FHR of 152. CMP with mild transaminitis with AST of 43 and ALT of 127. Alk phos normal at 69. Normal bilirubin. Right upper quadrant ultrasound was ordered and shows fatty liver infiltration with no gallstones. I did speak with OB clinical science consultant, Dr. Desir, who recommended speaking with GI. I spoke to Dr. Mann, GI, who recommended additional labs including LDH, amylase, CPK and acute hepatitis panel. Patient signed out to Dr. Mantilla pending these additional labs. If all normal, can be discharged with follow up with GI and OB outpatient. History & Record Review Discussion w/independent historian: Patient Additional record(s) reviewed:: Prior outpatient record Lab Data Attestation: I reviewed the patient's lab results. Labs: Laboratory Results - last 24 hr 06/18/25 06/18/25 12:26 16:15 WBC 10.0 RBC 3.91 L Hgb 12.8 Hct 37.1 MCV 94.9 MCH 32.7 H MCHC 34.5 RDW Std Deviation 44.4 H RDW Coeff of Keila 12.8 Plt Count 273 MPV 9.9 Immature Gran % (Auto) 0.400 Neut % (Auto) 74.7 H Lymph % (Auto) 18.3 L [place] % (Auto) 5.6 Eos % (Auto) 0.5 Baso % (Auto) 0.5 Absolute Neuts (auto) 7.5 Absolute Lymphs (auto) 1.83 Nucleated RBC % 0 Sodium 136 Potassium 4.0 Chloride 105 Carbon Dioxide 21.1 Anion Gap 11 BUN 5 Creatinine 0.57 L Estim Creat Clear Calc 190.84 Est GFR (MDRD) Non-Af 130 BUN/Creatinine Ratio 7.9 L Glucose 84 Calcium 9.0 Total Bilirubin 0.28 AST 43 H ALT 127 H Alkaline Phosphatase 69 Lactate Dehydrogenase 168 Total Creatine Kinase 21 L Total Protein 6.6 Albumin 3.7 Globulin 2.9 Albumin/Globulin Ratio 1.3 Amylase 35 Urine Color Straw Urine Clarity Clear Urine pH 7.0 Ur Specific [place] 1.005 Urine Protein Negative Urine Glucose (UA) Normal Urine Ketones Negative Urine Occult Blood Negative Urine Nitrite Negative Urine Bilirubin Negative Urine Urobilinogen Normal Ur Leukocyte Esterase Negative Urine RBC 0 SEEN Urine WBC 0 SEEN Ur Squamous Epith Cells 0-5 SEEN Urine Bacteria 0 SEEN Urine Mucus 0 SEEN Radiography Diagnostic Testing: Clinical Impression(s) from Imaging Studies Obstetrics Ultrasound 06/18/25 12:44 IMPRESSION: No acute process. Right ovary contains a cyst measuring 2.4 x 2.6 x 2.4 cm. Reading Location: [id number] Gallbladder Ultrasound 06/18/25 13:34 IMPRESSION: Fatty infiltration of the liver. No gallstones. Reading Location: [id number] <Dr. Ryan Mantilla, DO - Last Filed: 06/18/25 23:36> [facility] MDM Narrative Medical decision making narrative: Patient is a 25-year-old female G2, P1, 18 weeks presenting to the emergency department for right middle to lower quadrant abdominal pain that started at 7 AM this morning. Patient was seen and examined. Resting bed comfortably in no acute distress. States that she has had round ligament pain in the past and this feels similar in type of pain but worse. She is denying any vaginal bleeding, pelvic pain or discharge. Labs including CBC, CMP, urinalysis as well as heart tones and a transabdominal ultrasound were ordered. Differential includes but is not limited to: likely MSK, UTI less likely appendicitis, nephrolithiasis, pyelonephritis, HELLP, biliary colic, cholecystitis, choledocholithiasis. CBC with no leukocytosis and a normal hemoglobin. Normal platelets. With pain that is worse with movements and come and goes and no WBC, less likely appendicitis. Urinalysis with no evidence of infection or bacteria. No UTI or pyelo. No CVA tenderness to suspect nephrolithiasis and no RBCs in urine. FHR of 152. CMP with mild transaminitis with AST of 43 and ALT of 127. Alk phos normal at 69. Normal bilirubin. Right upper quadrant ultrasound was ordered and shows fatty liver infiltration with no gallstones. I did speak with OB clinical science consultant, Dr. Desir, who recommended speaking with GI. I spoke to Dr. Mann, GI, who recommended additional labs including LDH, amylase, CPK and acute hepatitis panel. Patient signed out to Dr. Mantilla pending these additional labs. If all normal, can be discharged with follow up with GI and OB outpatient. Patient was turned over to me by Dr. Fountain @1600 Brief history: History as above Physical exam: Benign abdomen. No pulsatile masses. No right upper quadrant tenderness, negative Huerta sign Labs and images reviewed (if obtained): Reviewed labs and images. MDM/plan: Discussed with GI. Reviewed the patient's LFTs, additional testing the summary of which the patient safe for discharge with close MEDICAL WRITER follow-up. Lab Data Labs: Laboratory Results - last 24 hr 06/18/25 06/18/25 12:26 16:15 WBC 10.0 RBC 3.91 L Hgb 12.8 Hct 37.1 MCV 94.9 MCH 32.7 H MCHC 34.5 RDW Std Deviation 44.4 H RDW Coeff of [place]ila 12.8 Plt Count 273 MPV 9.9 Immature Gran % (Auto) 0.400 Neut % (Auto) 74.7 H Lymph % (Auto) 18.3 L [place] % (Auto) 5.6 Eos % (Auto) 0.5 Baso % (Auto) 0.5 Absolute Neuts (auto) 7.5 Absolute Lymphs (auto) 1.83 Nucleated RBC % 0 Sodium 136 Potassium 4.0 Chloride 105 Carbon Dioxide 21.1 Anion Gap 11 BUN 5 Creatinine 0.57 L Estim Creat Clear Calc 190.84 Est GFR (MDRD) Non-Af 130 BUN/Creatinine Ratio 7.9 L Glucose 84 Calcium 9.0 Total Bilirubin 0.28 AST 43 H ALT 127 H Alkaline Phosphatase 69 Lactate Dehydrogenase 168 Total Creatine Kinase 21 L Total Protein 6.6 Albumin 3.7 Globulin 2.9 Albumin/Globulin Ratio 1.3 Amylase 35 Urine Color Straw Urine Clarity Clear Urine pH 7.0 Ur Specific [place] 1.005 Urine Protein Negative Urine Glucose (UA) Normal Urine Ketones Negative Urine Occult Blood Negative Urine Nitrite Negative Urine Bilirubin Negative Urine Urobilinogen Normal Ur Leukocyte Esterase Negative Urine RBC 0 SEEN Urine WBC 0 SEEN Ur Squamous Epith Cells 0-5 SEEN Urine Bacteria 0 SEEN Urine Mucus 0 SEEN Radiography Diagnostic Testing: Clinical Impression(s) from Imaging Studies Obstetrics Ultrasound 06/18/25 12:44 IMPRESSION: No acute process. Right ovary contains a cyst measuring 2.4 x 2.6 x 2.4 cm. Reading Location: [facility] Gallbladder Ultrasound 06/18/25 13:34 IMPRESSION: Fatty infiltration of the liver. No gallstones. Reading Location: [id number] Discharge Plan Triage Chief Complaint: Other Complaint: Abd Pain ED Provider: Anamaria Fountain Dx/Rx/DC Orders Clinical Impression: Abdominal pain Instructions: ED Prescriptions: No Action PNV-[place] 28-1-300 mg capsule PO Primary Care Provider: Jie Rai Referrals: Raquel Hickey DO [Med Staff - Active Staff] - Friend,Cipriano, DO [Med Staff - Active Staff] - Activity Restrictions/Additional Instructions: Thank you for trusting us with your care today! Please take Tylenol (2 pills, 650 mg) every 6 hours as needed for pain and fever control. Please return to the emergency department if your symptoms change or worsen. Please follow with your primary care physician for further outpatient evaluation and management. Print Language: Azeri Disposition Disposition: Home, Self Care Discharge Date/Time: 06/18/25 18:55
--- NOTE | 2025-06-18 12:44 | US_ITS ---
PROCEDURE: OB LIMITED (NO BIOMETRICS) 06/18/2025 REASON FOR EXAM: ABDOMINAL PAIN, TECHNIQUE: OB LIMITED (NO BIOMETRICS) COMPARISON: none FINDINGS Intrauterine with fetus in breech presentation. cardiac activity of 150 bpm. Cervical length of 3.7 cm. Max vertical pocket of 4.8 cm. DEIDRA within normal limits. Cervix is closed. Placenta is not low lying. age of 18 weeks and 3 days with BRIANA of 11/16/25. Right ovary measures 3.6 x 2.6 x 3 cm and left ovary measures 3.1 x 1.7 x 2.2 cm. Right ovary contains a cyst measuring 2.4 x 2.6 x 2.4 cm. US/OB Limited (No Biometrics) IMPRESSION: No acute process. Right ovary contains a cyst measuring 2.4 x 2.6 x 2.4 cm. Reading Location: [facility]
[2025-06-18 12:47] LABS: Mucous, Urine 0 SEEN /hpf (<or=2+); Red Blood Cells-Urine 0 SEEN /hpf (0-5)
[2025-06-18 12:49] LABS: Hematocrit 37.1 % (37-47); Hemoglobin 12.8 g/dL (12.0-15.0); Immature Granulocytes Count 0.040 X10^3/uL (0.0-0.0); Mean Corp Hgb Conc 34.5 g/dL (32-36); Mean Corpuscular Volume 94.9 fL (81-99); Mean Platelet Vol. 9.9 fl (6.2-12.0); NRBC Flagged by Analyzer 0 % (0-5); Platelet Count 273 K/mm3 (150-450); RBC Distribution Width CV 12.8 % (11.6-14.6); RBC Distribution Width SD 44.4 fl (35.1-43.9); Red Blood Count 3.91 M/mm3 (4.2-5.4); White Blood Count 10.0 K/mm3 (4.4-11.0)
[2025-06-18 12:53] LABS: Color, Urine Straw (Yellow); Glucose, Dipstick Normal (Normal); Ketone-Dipstick Negative (Negative); Leukocyte Esterase-Dipstick Negative /ul (Negative); Nitrite-Dipstick Negative (Negative); Occult Blood-Urine Negative /ul (Negative); Protein-Dipstick Negative (Negative); Specific Gravity, Urine 1.005 (1.002-1.030); Urine Bilirubin Dipstick Negative (Negative)
[2025-06-18 12:59] LABS: Squamous Epithelial Cells - UA 0-5 SEEN /hpf (5-10)
[2025-06-18 13:27] LABS: AST(SGOT) 43 U/L (<=31); Alanine Aminotransfer ALT/SGPT 127 U/L (<=34); Albumin, Serum 3.7 g/dL (3.5-5.0); Alkaline Phosphatase 69 U/L (35-104); Anion Gap 11 (5-15); BUN 5 mg/dL (4-19); BUN/Creat Ratio 7.9 RATIO (10-20); Calcium,Total 9.0 mg/dL (7.6-11.0); Carbon Dioxide 21.1 mmol/L (21.0-32.0); Chloride 105 mmol/L (98-108); Estimated Creatinine Clearance 190.84 ml/min (50-250); Globulin 2.9 g/dL (2.2-4.2); Glucose 84 mg/dL (70-99); Potassium 4.0 mmol/L (3.3-5.1)
--- NOTE | 2025-06-18 13:34 | US_ITS ---
PROCEDURE: GALLBLADDER 06/18/2025 REASON FOR EXAM: RIGHT SIDED ABDOMINAL PAIN, ELEVATED LIVER ENZYMES COMPARISON: None FINDINGS: Liver: Diffusely echogenic suggesting fatty infiltration. The liver measures 15 cm. Gallbladder: No stones, sludge, wall thickening or tenderness. The gallbladder wall measures 2 mm. Common bile duct: Normal measuring 4 mm. . Pancreas: Normal Other: Visualized portions of the right kidney are unremarkable. No right upper quadrant ascites. US/Gallbladder IMPRESSION: Fatty infiltration of the liver. No gallstones. Reading Location: [id number]
[2025-06-18 15:48] VITALS: BP 135/84; PULSE 87; RESP 16; O2SAT 100
[2025-06-18 16:42] LABS: Amylase 35 U/L (28-100); LDH 168 U/L (84-246)
[2025-06-18 17:00] VITALS: BP 124/78; PULSE 69; RESP 18; O2SAT 98
[2025-06-18 17:08] LABS: CPK Total, Creatine Kinase 21 U/L (24-195)
[2025-06-18 18:54] VITALS: BP 131/87; PULSE 88; RESP 16; TEMP 36.5; O2SAT 99
[2025-06-20 05:07] LABS: HEPATITIS B SURFACE AG Negative (Negative); Hep C Antibodies Non Reactive (Non Reactive)
== END 2025-06-18 18:55 | disposition home or self-care (01) ==
PROVIDERS: Emergency Provider Student in an Organized Health Care Education/Training Program; PCP Internal Medicine; Visit Provider Student in an Organized Health Care Education/Training Program
DX: O99.891 Other specified diseases and conditions complicating pregnancy (principal); Z87.891 Personal history of nicotine dependence; R10.31 Right lower quadrant pain; Z3A.18 18 weeks gestation of pregnancy
CPT/HCPCS: 76705; 76815; 80053; 80074; 81001; 82150; 82550; 83615; 85025; 99284; A4216

== ENCOUNTER → 2025-06-24 | Outpatient (CLI) | payer MEDICAID, SELFPAY ==
[2025-06-24 12:21] LABS: Hematocrit 38.5 % (37-47); Hemoglobin 12.9 g/dL (12.0-15.0); Immature Granulocytes Count 0.080 X10^3/uL (0.0-0.0); Mean Corp Hgb Conc 33.5 g/dL (32-36); Mean Corpuscular Volume 95.5 fL (81-99); Mean Platelet Vol. 9.7 fl (6.2-12.0); NRBC Flagged by Analyzer 0 % (0-5); Platelet Count 283 K/mm3 (150-450); RBC Distribution Width CV 12.7 % (11.6-14.6); RBC Distribution Width SD 44.5 fl (35.1-43.9); Red Blood Count 4.03 M/mm3 (4.2-5.4); White Blood Count 9.9 K/mm3 (4.4-11.0)
[2025-06-24 12:52] LABS: AST(SGOT) 53 U/L (<=31); Alanine Aminotransfer ALT/SGPT 123 U/L (<=34); Albumin, Serum 3.6 g/dL (3.5-5.0); Alkaline Phosphatase 73 U/L (35-104); Anion Gap 11 (5-15); BUN 4 mg/dL (4-19); BUN/Creat Ratio 7.0 RATIO (10-20); Calcium,Total 9.1 mg/dL (7.6-11.0); Carbon Dioxide 22.0 mmol/L (21.0-32.0); Chloride 104 mmol/L (98-108); Globulin 3.1 g/dL (2.2-4.2); Glucose 91 mg/dL (70-99); Potassium 3.9 mmol/L (3.3-5.1)
[2025-06-24 15:14] LABS: LDH 183 U/L (84-246); Uric Acid 4.2 mg/dL (2.6-6.0)
== END | disposition home or self-care (01) ==
PROVIDERS: PCP Internal Medicine; Visit Provider Obstetrics & Gynecology
DX: O26.619 Liver and biliary tract disorders in pregnancy, unspecified trimester (principal); R10.9 Unspecified abdominal pain; K76.0 Fatty (change of) liver, not elsewhere classified; Z3A.00 Weeks of gestation of pregnancy not specified
CPT/HCPCS: 36415; 80053; 83615; 84550; 85025

== ENCOUNTER 2025-08-01 18:14 | Emergency (ER) | payer MEDICAID, SELFPAY ==
[2025-08-01] VITALS (7 sets, daily range): BP systolic 110–115; BP diastolic 60–82; PULSE 83–99; RESP 18–25; TEMP 36.6; O2SAT 99–100; BMI 40.5
--- NOTE | 2025-08-01 20:04 | RAD_ITS ---
PROCEDURE: CHEST PA AND LATERAL 08/01/2025 REASON FOR EXAM: CHEST PAIN TECHNIQUE: Procedure Code: RADCXR Modality: DX Procedure: CHEST PA AND LATERAL COMPARISON: 05/22/2025 FINDINGS: Lungs/Pleura: Clear. No pneumothorax or pleural effusion. Heart/Mediastinum: Normal in size. No vascular congestion. Bones/Soft tissues: Unremarkable. RAD/Chest PA and Lateral IMPRESSION: No acute cardiopulmonary disease. Reading Location: [facility]
[2025-08-01 20:14] LABS: Hematocrit 35.7 % (37-47); Hemoglobin 12.0 g/dL (12.0-15.0); Immature Granulocytes Count 0.040 X10^3/uL (0.0-0.0); Mean Corp Hgb Conc 33.6 g/dL (32-36); Mean Corpuscular Volume 94.2 fL (81-99); Mean Platelet Vol. 9.6 fl (6.2-12.0); NRBC Flagged by Analyzer 0 % (0-5); Platelet Count 275 K/mm3 (150-450); RBC Distribution Width CV 12.6 % (11.6-14.6); RBC Distribution Width SD 43.5 fl (35.1-43.9); Red Blood Count 3.79 M/mm3 (4.2-5.4); White Blood Count 9.3 K/mm3 (4.4-11.0)
[2025-08-01 20:46] LABS: Anion Gap 10 (5-15); BUN 6 mg/dL (4-19); BUN/Creat Ratio 7.4 RATIO (10-20); Calcium,Total 8.8 mg/dL (7.6-11.0); Carbon Dioxide 21.6 mmol/L (21.0-32.0); Chloride 106 mmol/L (98-108); Estimated Creatinine Clearance 138.86 ml/min (50-250); Glucose 86 mg/dL (70-99); Potassium 4.1 mmol/L (3.3-5.1); Troponin T High Sensitivity < 6 ng/L (<=14)
--- NOTE | 2025-08-01 21:48 | EDS_ITS ---
HPI History of Present Illness Chief Complaint: Palpitations Detail of Chief Complaint: Palpitations and nausea, second trimester Informant: patient Onset/Context/Timing Onset: Today Context: Sudden Onset Timing: Continuous Quality: Palpitations/heart pounding Location: Chest Current Severity: Mild Maximum Severity: Moderate Worsened by: No open Relieved by: Nothing Associated Symptoms Associated Symptoms: Nausea and orthostatic lightheadedness Narrative Narrative: Patient is a 25-year-old female. She seen by the [facility]. This is her second . She had no complication with first. She has had problems with nausea throughout this. Today she presented because of palpitations. She complains of mild bifrontal head pain. She denies double vision blurred vision loss of vision. She has ringing or ears decreased hearing. Denies trouble with speech or swallowing. She denies neck pain or neck stiffness. She denies shortness of breath difficulty breathing. She had some discomfort in her chest with the palpitations. That has resolved. She has no known history of cardiac disease. Her only GI symptom is nausea. She does endorse frequency with no other urologic symptoms. Prior similar symptoms: Yes (With respect to the nausea and not the palpitations) Recent Illness/Hospitalization: No PFSH PFSH Medical History Current every day vaping Seasonal allergies Anxiety Home Medications ?Medication ?Instructions ?Recorded ?Last Taken ?Type multivit-min no.71-iron fum 28 cap PO 03/27/25 Unknown History mg-folate no.1 1 mg-dha 300 mg capsule (PNV-[place]) ondansetron 4 mg disintegrating 4 mg PO Q8H PRN PRN Na usea #10 tabs 08/01/25 Unknown Rx tablet Allergy/AdvReac Type Severity Reaction Status Date / Time No Known Allergies Allergy Verified 08/01/25 18:17 Family History Grandmother Hypertension Maternal Grandfather Colon cancer Paternal- age of onset unknown Grandmother Diabetes Paternal Depression Maternal Surgical History S/P tonsillectomy S/P knee surgery Social History adopted: No household members: spouse and children housing: house number of children: 1 current occupational status: unemployed current occupational exposures/hazards: No pets and animals: Yes (Avoid litter box) pets and animals: cat(s) and dog(s) history of recent travel: No sexually active: Yes Smoking Status: Former smoker Electronic Cigarette Use: with nicotine alcohol intake: current alcohol intake frequency: holidays/special occasions only details: Not after finding out substance use type: marijuana well-balanced diet: daily or most days caffeine: Yes Type: carbonated beverages Number of servings: 2 eating out: rarely or never during the past year weight has: remained stable what type of physical activity do you participate in: walking frequency: daily duration: 30-45 minutes/day ty/scientology: None seatbelt use: always do you feel safe at home: Yes additional social history: - Edgar- Norma Cruz( Still lives in [place]) ROS ROS ED Constitutional Constitutional ED: Denies chills, fever(s), subjective, sweats or weight loss Eyes Eyes: Denies blurry vision, change in vision or diplopia ENT ENT ED: Denies rhinorrhea or sore throat Cardiovascular Cardiovascular: Reports chest pain and palpitations; Denies orthopnea, paroxysmal nocturnal dyspnea or racing heartbeat Respiratory/Chest Respiratory/Chest: Denies cough, dyspnea, dyspnea on exertion, orthopnea or paroxysmal nocturnal dyspnea Gastrointestinal Gastrointestinal: Reports nausea; Denies abdominal pain, diarrhea or vomiting Genitourinary Genitourinary ED: Reports urinary frequency; Denies dysuria or hematuria Musculoskeletal Musculoskeletal: Denies arthralgias, back pain or myalgias Integumentary Denies rash Neurologic Neurologic: Reports headache(s); Denies paresthesias or weakness Psychiatric Psychiatric: Reports anxiety Hematologic/Lymphatic Hematologic/Lymphatic: Reports systems reviewed and no addt'l complaints, except as documented EXAM Physical Exam Const Vital Signs: 08/01/25 18:17 08/01/25 19:14 08/01/25 20:00 Temperature 97.9 F Temperature Source Temporal Pulse Rate 99 85 86 Pulse Rate [Sitting (for 1 minute prior to obtaining)] Pulse Rate [Standing (for 1 minute prior to obtaining)] Respiratory Rate 18 19 H Blood Pressure 114/82 H 112/66 111/68 Blood Pressure [Lying] Blood Pressure [Sitting (for 1 minute prior to obtaining)] Blood Pressure [Standing (for 1 minute prior to obtaining)] Blood Pressure Mean 92 81 82 Blood Pressure Mean [Lying] Blood Pressure Mean [Sitting (for 1 minute prior to obtaining)] Blood Pressure Mean [Standing (for 1 minute prior to obtaining)] Pulse Ox 100 99 99 Oxygen Delivery Method Room Air Room Air Room Air 08/01/25 20:26 08/01/25 21:00 08/01/25 21:23 Temperature Temperature Source Pulse Rate 92 Pulse Rate [Sitting (for 1 minute prior to obtaining)] 83 Pulse Rate [Standing (for 1 minute prior to obtaining)] 90 Respiratory Rate 25 H Blood Pressure 114/62 Blood Pressure [Lying] 114/66 Blood Pressure [Sitting (for 1 minute prior to obtaining)] 115/60 Blood Pressure [Standing (for 1 minute prior to obtaining)] 110/69 Blood Pressure Mean 79 Blood Pressure Mean [Lying] 82 Blood Pressure Mean [Sitting (for 1 minute prior to obtaining)] 78 Blood Pressure Mean [Standing (for 1 minute prior to obtaining)] 82 Pulse Ox Oxygen Delivery Method Room Air 08/01/25 21:25 Temperature 97.9 F Temperature Source Pulse Rate 92 Pulse Rate [Sitting (for 1 minute prior to obtaining)] Pulse Rate [Standing (for 1 minute prior to obtaining)] Respiratory Rate 25 H Blood Pressure 114/62 Blood Pressure [Lying] Blood Pressure [Sitting (for 1 minute prior to obtaining)] Blood Pressure [Standing (for 1 minute prior to obtaining)] Blood Pressure Mean 79 Blood Pressure Mean [Lying] Blood Pressure Mean [Sitting (for 1 minute prior to obtaining)] Blood Pressure Mean [Standing (for 1 minute prior to obtaining)] Pulse Ox 99 Oxygen Delivery Method Positive well nourished and well developed Constitutional Narrative: Orthostatic vital signs are negative. General Appearance ED: well developed and NAD; Negative for pallor HEENT Reports moist mucous membranes HEENT Narrative: Head is atraumatic normocephalic. Ears normal. Nares patent. Eyes PERRL and EOMs intact bilaterally General Eye ED: Negative for pale conjunctiva or scleral icterus Neck no lymphadenopathy, supple and no JVD Chest Wall inspection of chest normal and palpation of chest normal Resp normal respiratory effort and clear to auscultation bilaterally Cardio regular rate, regular rhythm, S1 normal heart sound, S2 normal heart sound and no murmurs GI normal to inspection, nondistended, normoactive bowel sounds, non-tender, non-distended and no masses; Negative for hepatosplenomegaly Back/Spine no CVA tenderness Extremity normal to inspection General Extremety ED: Negative for edema General Extremity: Negative for edema Neuro oriented x3, CN's II-XII intact bilaterally and no sensory deficits noted Sensorium / Orientation: alert Motor Exam: strength 5/5 throughout Psych Mood & Affect: anxious Skin no rashes or lesions noted, no wounds and skin turgor normal General Skin Exam: elasticity normal; Negative for jaundice or pallor MDM MDM MDM Narrative Medical decision making narrative: Patient is a 25 G2, P1 female presents with palpitation nausea. She was concerned because of the palpitation. She has no other symptoms. Nurse protocol orders were initiated. She was placed on the monitor. EKG was canceled. She has a normal sinus rhythm with no ectopy. CBC was obtained assess H&H. Electrolyte panel was obtained to assess BUN to creatinine ratio as well as her electrolytes. Because of the palpitation nurses entered troponin which was less than 6 with hours of pain. Lab Data Attestation: I reviewed the patient's lab results. Lab results narrative: CBC reveals no significant abnormality. Basic metabolic panel is normal. Troponin is normal. Labs: Laboratory Results - last 24 hr 08/01/25 20:02 WBC 9.3 RBC 3.79 L Hgb 12.0 Hct 35.7 L MCV 94.2 MCH 31.7 MCHC 33.6 RDW Std Deviation 43.5 RDW Coeff of [place]ila 12.6 Plt Count 275 MPV 9.6 Immature Gran % (Auto) 0.400 Neut % (Auto) 74.2 H Lymph % (Auto) 19.2 [place] % (Auto) 5.4 Eos % (Auto) 0.4 Baso % (Auto) 0.4 Absolute Neuts (auto) 6.9 Absolute Lymphs (auto) 1.79 Nucleated RBC % 0 Sodium 138 Potassium 4.1 Chloride 106 Carbon Dioxide 21.6 Anion Gap 10 BUN 6 Creatinine 0.80 Estim Creat Clear Calc 138.86 Est GFR (MDRD) Non-Af 106 BUN/Creatinine Ratio 7.4 L Glucose 86 Calcium 8.8 Troponin T High Sens < 6 Radiography Chest X-Ray - ED: 2 View, Read by ED Physician (This independently reviewed interpreted by me at 2015.), Normal, Heart, Mediastinum, Bony Structures and No Acute Disease Diagnostic Testing: Clinical Impression(s) from Imaging Studies Chest X-Ray 08/01/25 20:04 IMPRESSION: No acute cardiopulmonary disease. Reading Location: [facility] Rhythm Strip Rhythm Strip: Sinus Rhythm Rate: 82 Ectopy: None Discharge Plan Triage Chief Complaint: Palpitations Other Complaint: ED Provider: Imer Wiley Dx/Rx/DC Orders Clinical Impression: Palpitations, Anxiety, Nausea, Second trimester , Adult BMI 40.0-44.9 kg/sq m Instructions: ED Heart Palpitations Prescriptions: New ondansetron 4 mg tablet,disintegrating 4 mg PO Q8H PRN PRN (Reason: Nausea) Qty: 10 0RF No Action PNV-[place] 28-1-300 mg capsule PO Primary Care Provider: Jie Rai Referrals: Jie Rai MD [Primary Care Provider] - Consuelo Persaud MD [Med Staff - Active Staff] - As Needed Print Language: Gambian Disposition Disposition: Home, Self Care
[2025-08-01 22:11] LABS: Troponin T High Sens 2 HR < 6 ng/L (<=14)
== END 2025-08-01 22:01 | disposition home or self-care (01) ==
PROVIDERS: Emergency Provider Emergency Medicine; PCP Internal Medicine; Visit Provider Emergency Medicine
DX: O26.892 Other specified pregnancy related conditions, second trimester (principal); O99.342 Other mental disorders complicating pregnancy, second trimester; R11.0 Nausea; Z87.891 Personal history of nicotine dependence; F41.9 Anxiety disorder, unspecified; O99.891 Other specified diseases and conditions complicating pregnancy; R00.2 Palpitations; Z3A.00 Weeks of gestation of pregnancy not specified
CPT/HCPCS: 71046; 80048; 84484; 85025; 99285; A4216

== ENCOUNTER → 2025-08-08 | Outpatient (CLI) | payer MEDICAID, SELFPAY ==
[2025-08-08 12:40] LABS: Hematocrit 36.1 % (37-47); Hemoglobin 12.0 g/dL (12.0-15.0); Immature Granulocytes Count 0.050 X10^3/uL (0.0-0.0); Mean Corp Hgb Conc 33.2 g/dL (32-36); Mean Corpuscular Volume 92.8 fL (81-99); Mean Platelet Vol. 10.0 fl (6.2-12.0); NRBC Flagged by Analyzer 0 % (0-5); Platelet Count 282 K/mm3 (150-450); RBC Distribution Width CV 12.6 % (11.6-14.6); RBC Distribution Width SD 42.8 fl (35.1-43.9); Red Blood Count 3.89 M/mm3 (4.2-5.4); White Blood Count 8.7 K/mm3 (4.4-11.0)
[2025-08-08 12:51] LABS: Prothrombin Time (Protime)PT. 13.3 SECONDS (11.7-14.9)
[2025-08-08 12:52] LABS: Fibrinogen 488 mg/dl (203-444); Partial Thromboplast Time 26.2 Seconds (24.1-36.2)
[2025-08-08 13:13] LABS: AST(SGOT) 30 U/L (<=31); Alanine Aminotransfer ALT/SGPT 61 U/L (<=34); Albumin, Serum 3.4 g/dL (3.5-5.0); Alkaline Phosphatase 86 U/L (35-104); Anion Gap 12 (5-15); BUN 4 mg/dL (4-19); BUN/Creat Ratio 7.3 RATIO (10-20); Calcium,Total 8.8 mg/dL (7.6-11.0); Carbon Dioxide 18.7 mmol/L (21.0-32.0); Chloride 107 mmol/L (98-108); Cholesterol 212 mg/dL (<=190); Ferritin 35 ng/mL (22-378); Globulin 3.0 g/dL (2.2-4.2); Glucose 81 mg/dL (70-99); Low Density Lipoprotein Calc. 122 mg/dL; Potassium 3.8 mmol/L (3.3-5.1); Triglycerides 139 mg/dL; Very Low Density Lipoprotein 28 mg/dL (5-40); Vitamin D,25 Hydroxy 25.9 ng/mL (30-100); cholesterol:hdl ratio screen 3.43
[2025-08-08 14:22] LABS: CRP 8.73 mg/L (0.0-3.0); LDH 161 U/L (84-246); Uric Acid 4.4 mg/dL (2.6-6.0)
[2025-08-11 15:08] LABS: ANTINUCLEAR ANTIBODIES DIRECT Negative (Negative); Anti-Smooth Muscle ABS 4 Units (0-19); EBV Acute VCA IgM < 36.0 U/mL (0.0-35.9); EBV-VCA IgG > 600.0 U/mL (0.0-17.9); HCV Quant. RNA PCR HCV Not Detected IU/mL (.)
== END | disposition home or self-care (01) ==
PROVIDERS: PCP Internal Medicine; Referring Provider Internal Medicine; Visit Provider Internal Medicine
DX: O26.619 Liver and biliary tract disorders in pregnancy, unspecified trimester (principal); O21.9 Vomiting of pregnancy, unspecified; K76.0 Fatty (change of) liver, not elsewhere classified; R74.8 Abnormal levels of other serum enzymes; Z3A.00 Weeks of gestation of pregnancy not specified; O99.611 Diseases of the digestive system complicating pregnancy, first trimester
CPT/HCPCS: 86225; 36415; 80053; 80061; 82306; 82728; 83036; 83516; 83615; 84550; 85025; 85384; 85610; 85730; 86038; 86140; 86664; 86665; 86695; 86696; 86706; 87522

== ENCOUNTER 2025-08-14 22:07 | Outpatient (CLI) | payer MEDICAID, SELFPAY ==
[2025-08-14 22:13] VITALS: BMI 40.7
[2025-08-14 22:23] LABS: Mucous, Urine 0 SEEN /hpf (<or=2+); Red Blood Cells-Urine 0 SEEN /hpf (0-5)
[2025-08-14 22:27] VITALS: BP 114/65; PULSE 88; RESP 16; TEMP 36.7; O2SAT 96
[2025-08-14 22:34] LABS: Color, Urine Yellow (Yellow); Glucose, Dipstick Normal (Normal); Ketone-Dipstick Negative (Negative); Leukocyte Esterase-Dipstick 100 /ul (Negative); Nitrite-Dipstick Negative (Negative); Occult Blood-Urine 10 /ul (Negative); Protein-Dipstick 15 mg/dl (Negative); Specific Gravity, Urine 1.015 (1.002-1.030); Urine Bilirubin Dipstick Negative (Negative)
[2025-08-14 22:51] LABS: Squamous Epithelial Cells - UA 5-10 SEEN /hpf (5-10)
--- NOTE | 2025-08-18 18:58 | OB.TRI.HP_ITS ---
HPI - General HPI Narrative TREMAINE HERNANDEZ, is a 25 F who presents for pelvic pressure and decreased movement at 26 weeks 4 days. She denies loss of fluid, vaginal bleeding. Maternal Data Information BRIANA Calculator Estimated Delivery Date Method Current WG Current Estimate 11/16/25 Ultrasound #1 27w 1d Other Estimates 11/10/25 LMP (Certain) 28w 0d PFSH PFSH Medical History Current every day vaping Seasonal allergies Anxiety Home Medications ?Medication ?Instructions ?Recorded ?Last Taken ?Type multivit-min no.71-iron fum 28 1 cap PO 03/27/2508/14 08:00 History mg-folate no.1 1 mg-dha 300 mg capsule (PNV-[place]) ondansetron 4 mg disintegrating 4 mg PO Q8H PRN PRN Na usea #10 tabs 08/01/25 Unknown Rx tablet cholecalciferol (vitamin D3) 1,250 1,250 mcg PO QWEEK 4 weeks #4 tabs 08/08/25 Unknown Rx mcg (50,000 unit) tablet Allergy/AdvReac Type Severity Reaction Status Date / Time No Known Allergies Allergy Verified 08/14/25 22:21 Family History Grandmother Hypertension Maternal Grandfather Colon cancer Paternal- age of onset unknown Grandmother Diabetes Paternal Depression Maternal Surgical History S/P tonsillectomy S/P knee surgery Social History adopted: No household members: spouse and children housing: house number of children: 1 current occupational status: unemployed current occupational exposures/hazards: No pets and animals: Yes (Avoid litter box) pets and animals: cat(s) and dog(s) history of recent travel: No sexually active: Yes Smoking Status: Former smoker Electronic Cigarette Use: with nicotine alcohol intake: current alcohol intake frequency: holidays/special occasions only details: Not after finding out substance use type: marijuana well-balanced diet: daily or most days caffeine: Yes Type: carbonated beverages Number of servings: 2 eating out: rarely or never during the past year weight has: remained stable what type of physical activity do you participate in: walking frequency: daily duration: 30-45 minutes/day ty/islam: None seatbelt use: always do you feel safe at home: Yes additional social history: - Sana Cruz( Still lives in [place]) History 2 Elective abortions Hx Para 1 Spontaneous abortions Hx # Term Pregnancies Ectopic pregnancies Hx # Pregnancies Multiple births # of living children 1 Past Pregnancies Del. Date Name GA/Weeks Outcome Route Bth Weight Infant Gen Labor Lgth Anesthesia Del Locatn Provider FOB 11/27/22 Ayaan 37 live - full term 6lbs 9oz Male epidural Alexey [facility] Delivery Date: 11/27/22 Last Updated by: Belle Arango hemorrhage after delivery, no transfusion Visit Details Expected Delivery Route/Plan Labor Preferences- CB/BF classes: [] labor support person: [] labor intervention preferences: [] pain management options preferred: [] cut cord/dad catch: [] : [] PP control planned: [] discussed possible routes of delivery and associated risks: [] special requests: [] Plans Covid status: [] Flu vaccine: [] Tdap vaccine: [] Rhogam: [] LARC form signed: [] Problem list reviewed and updated with the most current plan of care details and appropriate orders placed. Relevant counseling for the gestational age provided. Continue routine care and follow up unless otherwise noted in visit notes/problem list details OB Flowsheet Initial Weight: 258 lb Date -?-?-?-?-?-?-?-?-?-?-?-?- EGA Weight BP Urine Prot -?-?-?-?-?-?-?-?-?-?-?-?- Glucose FHR FuHt Pres Dilation -?-?-?-?-?-?-?-?-?-?-?-?- Effaced St Visit Note 04/07/25 -?-?-?-?-?-?-?-?-?-?-?-?- 8w 1d 258 lb 9 oz (+9 oz) 123/86 -?-?-?-?-?-?-?-?-?-?-?-?- 164 -?-?-?-?-?-?-?-?-?-?-?-?- KW- CRL 1.72cm c ons with early US. accepts NIPT. 04/25/25 -?-?-?-?-?-?-?-?-?-?-?-?- 10w 5d 255 lb (-3 lb) 118/83 -?-?-?-?-?-?-?-?-?-?-?-?- -?-?-?-?-?-?-?-?-?-?-?-?- Nurse visit for UTI sx. RX sent Nurse visit for UTI sx- had previous elevated bacteria count in urine but not high enough to indicate infection. Repeat culture and RX sent 05/12/25 -?-?-?-?-?-?-?-?-?-?-?-?- 13w 1d 252 lb (-6 lb) 133/86 Negative -?-?-?-?-?-?-?-?-?-?-?-?- Negative 180 -?-?-?-?-?-?-?-?-?-?-?-?- SM- no vb crampi ng 06/13/25 -?-?-?-?-?-?-?-?-?-?-?-?- 17w 5d 247 lb 6 oz (-10 lb 10 oz) 98/62 Trace -?-?-?-?-?-?-?-?-?-?-?-?- Negative 150 -?-?-?-?-?-?-?-?-?-?-?-?- KW- no vb/crampi ng. repeat urine culture today. occasional flutters. MFM US on 06/2406/24/25 -?-?-?-?-?-?-?-?-?-?-?-?- 19w 2d 247 lb (-11 lb) 110/71 Negative -?-?-?-?-?-?-?-?-?-?-?-?- Negative 150 -?-?-?-?-?-?-?-?-?-?-?-?- JV- repeating lf ts today. patient remains asymptomatic. no lof, vaginal bleeding, or cramping. 07/07/25 -?-?-?-?-?-?-?-?-?-?-?-?- 21w 1d 248 lb 3 oz (-9 lb 13 oz) 106/70 Negative -?-?-?-?-?-?-?-?-?-?-?-?- Negative 158 -?-?-?-?-?-?-?-?-?-?-?-?- KW- no vb/crampi ng. good fm. Sees GI on 07/10 but feeling fatigued and overall not well. luzmaria for round ligament pain. 08/08/25 -?-?-?-?-?-?-?-?-?-?-?-?- 25w 5d 251 lb 3 oz (-6 lb 13 oz) 92/65 Negative -?-?-?-?-?-?-?-?-?-?-?-?- Negative 140 -?-?-?-?-?-?-?-?-?-?-?-?- KW- no vb/lof/ct x. good fm. will monitor liver enzymes until after . ROS Constitutional Constitutional: Reports systems reviewed and no addt'l complaints, except as documented Gastrointestinal Gastrointestinal: Denies bloating, constipation, cramping, diarrhea, nausea or vomiting Genitourinary Genitourinary: Reports other Details: Denies vaginal odor, vaginal bleeding, or vaginal discharge ; Denies difficulty urinating or flank pain NST FHR Rate Baby A Baseline: 140 NST Reactive:: Appropriate for gestational age Uterine Activity:: no contractions
== END 2025-08-14 23:37 | disposition home or self-care (01) ==
LOC: WPOUT 22:11 → WP 22:11
PROVIDERS: PCP Internal Medicine; Visit Provider Obstetrics & Gynecology
DX: O36.8120 Decreased fetal movements, second trimester, not applicable or unspecified (principal); Z3A.26 26 weeks gestation of pregnancy; Z87.891 Personal history of nicotine dependence
CPT/HCPCS: 59025; 59050; 81001; 87086; 87088; 99221; G0378

== ENCOUNTER → 2025-08-25 | Outpatient (CLI) | payer MEDICAID, SELFPAY ==
[2025-08-25 13:02] LABS: Hematocrit 38.3 % (37-47); Hemoglobin 12.7 g/dL (12.0-15.0); Immature Granulocytes Count 0.060 X10^3/uL (0.0-0.0); Mean Corp Hgb Conc 33.2 g/dL (32-36); Mean Corpuscular Volume 93.9 fL (81-99); Mean Platelet Vol. 9.6 fl (6.2-12.0); NRBC Flagged by Analyzer 0 % (0-5); Platelet Count 276 K/mm3 (150-450); RBC Distribution Width CV 12.8 % (11.6-14.6); RBC Distribution Width SD 44.0 fl (35.1-43.9); Red Blood Count 4.08 M/mm3 (4.2-5.4); White Blood Count 10.8 K/mm3 (4.4-11.0)
[2025-08-25 13:54] LABS: AST(SGOT) 40 U/L (<=31); Alanine Aminotransfer ALT/SGPT 107 U/L (<=34); Albumin, Serum 3.5 g/dL (3.5-5.0); Alkaline Phosphatase 101 U/L (35-104); Anion Gap 13 (5-15); BUN 4 mg/dL (4-19); BUN/Creat Ratio 7.9 RATIO (10-20); Calcium,Total 9.1 mg/dL (7.6-11.0); Carbon Dioxide 20.9 mmol/L (21.0-32.0); Chloride 103 mmol/L (98-108); Globulin 3.3 g/dL (2.2-4.2); Glucose 95 mg/dL (70-99); Glucose Challenge Gest 1H 50g 95 mg/dL (70-140); HIV Nonreactive (Nonreactive); Potassium 3.8 mmol/L (3.3-5.1); Syphilis Antibodies Nonreactive (Nonreactive)
== END | disposition home or self-care (01) ==
PROVIDERS: PCP Internal Medicine; Visit Provider Advanced Practice Midwife
DX: Z34.92 Encounter for supervision of normal pregnancy, unspecified, second trimester (principal); R74.8 Abnormal levels of other serum enzymes; Z13.1 Encounter for screening for diabetes mellitus
CPT/HCPCS: 36415; 80053; 82950; 85025; 86703; 86780

== ENCOUNTER 2025-09-05 17:40 | Outpatient (CLI) | payer MEDICAID, SELFPAY ==
[2025-09-05] VITALS (24 sets, daily range): BP systolic 111–139; BP diastolic 64–81; PULSE 92–117; RESP 18–20; TEMP 36.8–37.2; O2SAT 97–100; BMI 40.4
[2025-09-05 18:29] LABS: Mucous, Urine 0 SEEN /hpf (<or=2+)
[2025-09-05] MEDS: Lactated Ringers 1,000 ML 999 ML IV (18:45)
[2025-09-05] MEDS: Betamethasone/Betamethasone 30 MG/5 ML Vial 12 MG IM (18:45)
[2025-09-05] MEDS: Magnesium Sulfate 4gm/100mL 4 GM/100 ML IV.SOLN. IV (18:59)
[2025-09-05] MEDS: Ampicillin 2 GM in 0.9% Normal Saline (100mL MB+) 100 ML IV (19:04)
[2025-09-05] MEDS: Magnesium Sulfate 20 GM/500 ML BAG IV (19:16)
[2025-09-05 19:27] LABS: Color, Urine Yellow (Yellow); Glucose, Dipstick Normal (Normal); Ketone-Dipstick Negative (Negative); Leukocyte Esterase-Dipstick 25 /ul (Negative); Nitrite-Dipstick Negative (Negative); Occult Blood-Urine 50 /ul (Negative); Protein-Dipstick Negative (Negative); Specific Gravity, Urine 1.010 (1.002-1.030); Urine Bilirubin Dipstick Negative (Negative)
[2025-09-05 19:32] LABS: Hematocrit 38.6 % (37-47); Hemoglobin 12.8 g/dL (12.0-15.0); Mean Corp Hgb Conc 33.2 g/dL (32-36); Mean Corpuscular Volume 92.8 fL (81-99); Mean Platelet Vol. 10.3 fl (6.2-12.0); Platelet Count 245 K/mm3 (150-450); RBC Distribution Width CV 12.7 % (11.6-14.6); RBC Distribution Width SD 43.3 fl (35.1-43.9); Red Blood Count 4.16 M/mm3 (4.2-5.4); White Blood Count 8.2 K/mm3 (4.4-11.0)
[2025-09-05 19:43] LABS: AST(SGOT) 88 U/L (<=31); Alanine Aminotransfer ALT/SGPT 166 U/L (<=34); Albumin, Serum 3.6 g/dL (3.5-5.0); Alkaline Phosphatase 117 U/L (35-104); Anion Gap 13 (5-15); BUN 5 mg/dL (4-19); BUN/Creat Ratio 9.2 RATIO (10-20); Calcium,Total 9.2 mg/dL (7.6-11.0); Carbon Dioxide 21.0 mmol/L (21.0-32.0); Chloride 105 mmol/L (98-108); Estimated Creatinine Clearance 205.37 ml/min (50-250); Globulin 3.3 g/dL (2.2-4.2); Glucose 100 mg/dL (70-99); Potassium 3.7 mmol/L (3.3-5.1)
[2025-09-05 20:21] LABS: LDH 335 U/L (84-246); Lipase 14 U/L (13-75); Uric Acid 4.5 mg/dL (2.6-6.0)
[2025-09-05 23:18] LABS: Red Blood Cells-Urine 0-5 SEEN /hpf (0-5); Squamous Epithelial Cells - UA 10-25 SEEN /hpf (5-10)
--- NOTE | 2025-09-08 07:30 | OB.TRI.HP_ITS ---
HPI - General HPI Narrative TREMAINE HERNANDEZ, is a 25 F G2, P1 at 29 weeks 5 days presents with acute vaginal bleeding patient had recently had intercourse. She denied any significant cramping. She denies any loss of fluid admitted good movement. She has a history of elevated liver enzymes that had improved in and now is worsening again. Maternal Data Information BRIANA Calculator Estimated Delivery Date Method Current WG Current Estimate 11/16/25 Ultrasound #1 30w 1d Other Estimates 11/10/25 LMP (Certain) 31w 0d PFSH PFSH Medical History Current every day vaping Seasonal allergies Anxiety Home Medications ?Medication ?Instructions ?Recorded ?Last Taken ?Type multivit-min no.71-iron fum 28 1 cap PO DAILY 03/27/25 09/05/25 08:00 History mg-folate no.1 1 mg-dha 300 mg 1 cap capsule (PNV-[place]) ondansetron 4 mg disintegrating 4 mg PO Q8H PRN PRN Na usea #10 tabs 08/01/25 Unknown Rx tablet cholecalciferol (vitamin D3) 1,250 1,250 mcg PO QWEEK 4 weeks #4 tabs 08/08/25 08/28/25 21:00 Rx mcg (50,000 unit) tablet 1,250 mcg Allergy/AdvReac Type Severity Reaction Status Date / Time No Known Allergies Allergy Verified 09/05/25 17:58 Family History Grandmother Hypertension Maternal Grandfather Colon cancer Paternal- age of onset unknown Grandmother Diabetes Paternal Depression Maternal Surgical History S/P tonsillectomy S/P knee surgery Social History adopted: No household members: spouse and children housing: house number of children: 1 current occupational status: unemployed current occupational exposures/hazards: No pets and animals: Yes (Avoid litter box) pets and animals: cat(s) and dog(s) history of recent travel: No sexually active: Yes Smoking Status: Former smoker Electronic Cigarette Use: with nicotine alcohol intake: current alcohol intake frequency: holidays/special occasions only details: Not after finding out substance use type: marijuana well-balanced diet: daily or most days caffeine: Yes Type: carbonated beverages Number of servings: 2 eating out: rarely or never during the past year weight has: remained stable what type of physical activity do you participate in: walking frequency: daily duration: 30-45 minutes/day ty/roman catholic: None seatbelt use: always do you feel safe at home: Yes additional social history: - Edgar- Norma Cruz( Still lives in [place]) History 2 Elective abortions Hx Para 1 Spontaneous abortions Hx # Term Pregnancies Ectopic pregnancies Hx # Pregnancies Multiple births # of living children 1 Past Pregnancies Del. Date Name GA/Weeks Outcome Route Bth Weight Gen Labor Lgth Anesthesia Del Locatn Provider FOB 11/27/22 Ayaan 37 live - full term 6lbs 9oz Male epidural Alexey [facility] Delivery Date: 11/27/22 Last Updated by: Belle Arango hemorrhage after delivery, no transfusion Visit Details Expected Delivery Route/Plan Labor Preferences- CB/BF classes: no labor support person: Boo labor intervention preferences: [] pain management options preferred: epidural cut cord/dad catch: cord : yes PP control planned: [] discussed possible routes of delivery and associated risks: [] special requests: [] Plans Covid status: [] Flu vaccine: declines Tdap vaccine: given Rhogam: NA LARC form signed: yes Problem list reviewed and updated with the most current plan of care details and appropriate orders placed. Relevant counseling for the gestational age provided. Continue routine care and follow up unless otherwise noted in visit notes/problem list details OB Flowsheet Initial Weight: 258 lb Date -?-?-?-?-?-?-?-?-?-?-?-?- EGA Weight BP Urine Prot -?-?-?-?-?-?-?-?-?-?-?-?- Glucose FHR FuHt Pres Dilation -?-?-?-?-?-?-?-?-?-?-?-?- Effaced St Visit Note 04/07/25 -?-?-?-?-?-?-?-?-?-?-?-?- 8w 1d 258 lb 9 oz (+9 oz) 123/86 -?-?-?-?-?-?-?-?-?-?-?-?- 164 -?-?-?-?-?-?-?-?-?-?-?-?- KW- [facility] 1.72cm c ons with early US. accepts NIPT. 04/25/25 -?-?-?-?-?-?-?-?-?-?-?-?- 10w 5d 255 lb (-3 lb) 118/83 -?-?-?-?-?-?-?-?-?-?-?-?- -?-?-?-?-?-?-?-?-?-?-?-?- Nurse visit for UTI sx. RX sent Nurse visit for UTI sx- had previous elevated bacteria count in urine but not high enough to indicate infection. Repeat culture and RX sent 05/12/25 -?-?-?-?-?-?-?-?-?-?-?-?- 13w 1d 252 lb (-6 lb) 133/86 Negative -?-?-?-?-?-?-?-?-?-?-?-?- Negative 180 -?-?-?-?-?-?-?-?-?-?-?-?- SM- no vb crampi ng 06/13/25 -?-?-?-?-?-?-?-?-?-?-?-?- 17w 5d 247 lb 6 oz (-10 lb 10 oz) 98/62 Trace -?-?-?-?-?-?-?-?-?-?-?-?- Negative 150 -?-?-?-?-?-?-?-?-?-?-?-?- KW- no vb/crampi ng. repeat urine culture today. occasional flutters. MFM US on 06/2406/24/25 -?-?-?-?-?-?-?-?-?-?-?-?- 19w 2d 247 lb (-11 lb) 110/71 Negative -?-?-?-?-?-?-?-?-?-?-?-?- Negative 150 -?-?-?-?-?-?-?-?-?-?-?-?- JV- repeating lf ts today. patient remains asymptomatic. no lof, vaginal bleeding, or cramping. 07/07/25 -?-?-?-?-?-?-?-?-?-?-?-?- 21w 1d 248 lb 3 oz (-9 lb 13 oz) 106/70 Negative -?-?-?-?-?-?-?-?-?-?-?-?- Negative 158 -?-?-?-?-?-?-?-?-?-?-?-?- KW- no vb/crampi ng. good fm. Sees GI on 07/10 but feeling fatigued and overall not well. luzmaria for round ligament pain. 08/08/25 -?-?-?-?-?-?-?-?-?-?-?-?- 25w 5d 251 lb 3 oz (-6 lb 13 oz) 92/65 Negative -?-?-?-?-?-?-?-?-?-?-?-?- Negative 140 -?-?-?-?-?-?-?-?-?-?-?-?- KW- no vb/lof/ct x. daniel fm. will monitor liver enzymes until after . 08/25/25 -?-?-?-?-?-?-?-?-?-?-?-?- 28w 1d 252 lb 8 oz (-5 lb 8 oz) 105/71 Negative -?-?-?-?-?-?-?-?-?-?-?-?- Negative 148 30 -?-?-?-?-?-?-?-?-?-?-?-?- MH-No VB, LOF. G ood Fm. Reassured=mucoid discharge. No irritation. Tdap, larc. 28 wk labs pending. Declines flu ROS Constitutional Constitutional: Reports systems reviewed and no addt'l complaints, except as documented and as per HPI ENT HEENT: Reports systems reviewed and no addt'l complaints, except as documented Cardiovascular Cardiovascular: Reports systems reviewed and no addt'l complaints, except as documented Respiratory/Chest Respiratory/Chest: Reports systems reviewed and no addt'l complaints, except as documented Gastrointestinal Gastrointestinal: Reports as per HPI Genitourinary Genitourinary: Reports as per HPI Musculoskeletal Musculoskeletal: Reports systems reviewed and no addt'l complaints, except as documented Integumentary Integumentary: Reports systems reviewed and no addt'l complaints, except as documented Neurologic Neurologic: Reports systems reviewed and no addt'l complaints, except as documented Physical Exam Const alert, oriented x3 and no apparent distress HEENT Head and Scalp: normocephalic and atraumatic Neck full ROM and no lymphadenopathy Chest inspection of chest normal Resp normal respiratory effort GI GI Narrative: gravid, abdomen nontender, AGA Narrative: breech on US Manual OB Exam: dilated 3, effaced 60 and station -3 NST FHR Rate Baby A Baseline: 140 Variability:: Moderate Accelerations:: 15 x 15 Decelerations:: None NST Reactive:: Yes FHR Category:: Category I Uterine Activity:: regular q 2-4 Assessment & Plan (1) Vaginal bleeding during : (2) labor: COMMENT: transported 09/04 given steroids (3) Metabolic dysfunction-associated steatotic liver disease (MASLD): (4) Elevated liver enzymes: (5) Obesity affecting : QUALIFIERS: Trimester: third trimester Obesity type affecting : unspecified obesity Qualified Code(s): O99.213 - Obesity complicating , third trimester COMMENT: HgbA1c (6) : QUALIFIERS: Weeks of gestation: 28 weeks Qualified Code(s): Z3A.28 - 28 weeks gestation of COMMENT: elects NIPT: low risk, female, never had & declines carrier testing (7) Supervision of high-risk : QUALIFIERS: Trimester: third trimester Qualified Code(s): O09.93 - Supervision of high risk , unspecified, third trimester COMMENT: , BRIANA 11/10/25, ABHAY Marroquin PLAN: Plan 29 weeks started on magnesium, indocin, ampicillin, celestone given transported to [facility]. worsening liver enzymes but normal bps and platetlets Charges/Coding Multi Select Codes Visit Charges Office Visit/Consults: 33871 OV L3 Est 20min Urinary/Genital Urinary/Genital CPT Codes: 57033-54 non-stress test Interp
== END 2025-09-05 20:13 | disposition short-term general hospital (02) ==
LOC: WPOUT 17:42 → WP 17:42
PROVIDERS: PCP Internal Medicine; Referring Provider Obstetrics & Gynecology; Visit Provider Obstetrics & Gynecology
DX: O46.93 Antepartum hemorrhage, unspecified, third trimester (principal); Z3A.29 29 weeks gestation of pregnancy; Z87.891 Personal history of nicotine dependence; O99.213 Obesity complicating pregnancy, third trimester; O60.03 Preterm labor without delivery, third trimester; O26.613 Liver and biliary tract disorders in pregnancy, third trimester; K76.0 Fatty (change of) liver, not elsewhere classified
CPT/HCPCS: 96365; 96367; 36415; 59025; 59050; 76815; 80053; 81001; 82248; 83615; 83690; 84550; 85027; 86850; 86900; 86901; 94760; 96372; 99221; G0378; J0702

== ENCOUNTER → 2025-09-05 | Outpatient (CLI) | payer MEDICAID, SELFPAY ==
[2025-09-05 11:35] LABS: AST(SGOT) 60 U/L (<=31); Alanine Aminotransfer ALT/SGPT 135 U/L (<=34); Albumin, Serum 3.4 g/dL (3.5-5.0); Alkaline Phosphatase 110 U/L (35-104); Anion Gap 11 (5-15); BUN 5 mg/dL (4-19); BUN/Creat Ratio 9.1 RATIO (10-20); Calcium,Total 8.9 mg/dL (7.6-11.0); Carbon Dioxide 20.7 mmol/L (21.0-32.0); Chloride 104 mmol/L (98-108); Globulin 3.0 g/dL (2.2-4.2); Glucose 80 mg/dL (70-99); Potassium 3.9 mmol/L (3.3-5.1)
[2025-09-05 11:36] LABS: Bilirubin, Direct 0.23 mg/dL (0.00-0.30); LDH 189 U/L (84-246)
== END | disposition home or self-care (01) ==
PROVIDERS: PCP Internal Medicine; Visit Provider Obstetrics & Gynecology
DX: O99.891 Other specified diseases and conditions complicating pregnancy (principal); O26.619 Liver and biliary tract disorders in pregnancy, unspecified trimester; N92.6 Irregular menstruation, unspecified; E28.2 Polycystic ovarian syndrome; K76.0 Fatty (change of) liver, not elsewhere classified; Z3A.00 Weeks of gestation of pregnancy not specified; O99.280 Endocrine, nutritional and metabolic diseases complicating pregnancy, unspecified trimester
CPT/HCPCS: 36415; 80053; 82248; 83615

== ENCOUNTER 2025-09-19 16:20 | Outpatient (CLI) | payer MEDICAID, SELFPAY ==
[2025-09-19 16:34] VITALS: BMI 40.5
[2025-09-19 16:39] VITALS: BP 109/60; PULSE 113; RESP 16; TEMP 36.8
[2025-09-19 16:53] LABS: Mucous, Urine 0 SEEN /hpf (<or=2+)
[2025-09-19 17:15] LABS: Color, Urine Straw (Yellow); Glucose, Dipstick Normal (Normal); Ketone-Dipstick Negative (Negative); Leukocyte Esterase-Dipstick 500 /ul (Negative); Nitrite-Dipstick Negative (Negative); Occult Blood-Urine Negative /ul (Negative); Protein-Dipstick 15 mg/dl (Negative); Specific Gravity, Urine 1.010 (1.002-1.030); Urine Bilirubin Dipstick Negative (Negative)
[2025-09-19 17:18] LABS: ROM Internal Control Test YES-OK TO RESULT pt. (Internal QC); ROM Patient Test Negative (Negative); Record Kit Lot#, ROM+ K3607
[2025-09-19 17:39] VITALS: BP 142/84; PULSE 116
--- NOTE | 2025-09-19 18:00 | OB.TRI.HP_ITS ---
HPI - General HPI Narrative TREMAINE HERNANDEZ, is a 25 F who presents for contractions. no vb lof admits good fm appears to have a UTI also Maternal Data Information BRIANA Calculator Estimated Delivery Date Method Current WG Current Estimate 11/16/25 Ultrasound #1 31w 6d Other Estimates 11/10/25 LMP (Certain) 32w 5d PFSH PFSH Medical History Current every day vaping Seasonal allergies Anxiety Home Medications ?Medication ?Instructions ?Recorded ?Last Taken ?Type multivit-min no.71-iron fum 28 1 cap PO DAILY 03/27/25 09/19/25 08:00 History mg-folate no.1 1 mg-dha 300 mg 1 cap capsule (PNV-[place]) cholecalciferol (vitamin D3) 1,250 1,250 mcg PO QWEEK 4 weeks #4 tabs 08/08/25 09/10/25 22:00 Rx mcg (50,000 unit) tablet 1,250 mcg nifedipine 10 mg capsule 10 mg PO Q6H PRN contraction s #30 09/09/25 09/18/25 17:00 Rx caps 10 mg Allergy/AdvReac Type Severity Reaction Status Date / Time No Known Allergies Allergy Verified 09/19/25 16:32 Family History Grandmother Hypertension Maternal Grandfather Colon cancer Paternal- age of onset unknown Grandmother Diabetes Paternal Depression Maternal Surgical History S/P tonsillectomy S/P knee surgery Social History adopted: No household members: spouse and children housing: house number of children: 1 current occupational status: unemployed current occupational exposures/hazards: No pets and animals: Yes (Avoid litter box) pets and animals: cat(s) and dog(s) history of recent travel: No sexually active: Yes Smoking Status: Former smoker Electronic Cigarette Use: with nicotine alcohol intake: current alcohol intake frequency: holidays/special occasions only details: Not after finding out substance use type: marijuana well-balanced diet: daily or most days caffeine: Yes Type: carbonated beverages Number of servings: 2 eating out: rarely or never during the past year weight has: remained stable what type of physical activity do you participate in: walking frequency: daily duration: 30-45 minutes/day ty/adventist: None seatbelt use: always do you feel safe at home: Yes additional social history: - [place]- Norma Cruz( Still lives in [facility]) History 2 Elective abortions Hx Para 1 Spontaneous abortions Hx # Term Pregnancies Ectopic pregnancies Hx # Pregnancies Multiple births # of living children 1 Past Pregnancies Del. Date Name GA/Weeks Outcome Route Bth Weight Infant Gen Labor Lgth Anesthesia Del Locatn Provider FOB 11/27/22 Ayaan 37 live - full term 6lbs 9oz Male epidural Alexey [facility] Delivery Date: 11/27/22 Last Updated by: Belle Arango hemorrhage after delivery, no transfusion Visit Details Expected Delivery Route/Plan Labor Preferences- CB/BF classes: no labor support person: Boo labor intervention preferences: [] pain management options preferred: epidural cut cord/dad catch: cord : yes PP control planned: [] discussed possible routes of delivery and associated risks: [] special requests: [] Plans Covid status: [] Flu vaccine: declines Tdap vaccine: given Rhogam: NA LARC form signed: yes Problem list reviewed and updated with the most current plan of care details and appropriate orders placed. Relevant counseling for the gestational age provided. Continue routine care and follow up unless otherwise noted in visit notes/problem list details OB Flowsheet Initial Weight: 258 lb Date -?-?-?-?-?-?-?-?-?-?-?-?- EGA Weight BP Urine Prot -?-?-?-?-?-?-?-?-?-?-?-?- Glucose FHR FuHt Pres Dilation -?-?-?-?-?-?-?-?-?-?-?-?- Effaced St Visit Note 04/07/25 -?-?-?-?-?-?-?-?-?-?-?-?- 8w 1d 258 lb 9 oz (+9 oz) 123/86 -?-?-?-?-?-?-?-?-?-?-?-?- 164 -?-?-?-?-?-?-?-?-?-?-?-?- KW- CRL 1.72cm c ons with early US. accepts NIPT. 04/25/25 -?-?-?-?-?-?-?-?-?-?-?-?- 10w 5d 255 lb (-3 lb) 118/83 -?-?-?-?-?-?-?-?-?-?-?-?- -?-?-?-?-?-?-?-?-?-?-?-?- Nurse visit for UTI sx. RX sent Nurse visit for UTI sx- had previous elevated bacteria count in urine but not high enough to indicate infection. Repeat culture and RX sent 05/12/25 -?-?-?-?-?-?-?-?-?-?-?-?- 13w 1d 252 lb (-6 lb) 133/86 Negative -?-?-?-?-?-?-?-?-?-?-?-?- Negative 180 -?-?-?-?-?-?-?-?-?-?-?-?- SM- no vb crampi ng 06/13/25 -?-?-?-?-?-?-?-?-?-?-?-?- 17w 5d 247 lb 6 oz (-10 lb 10 oz) 98/62 Trace -?-?-?-?-?-?-?-?-?-?-?-?- Negative 150 -?-?-?-?-?-?-?-?-?-?-?-?- KW- no vb/crampi ng. repeat urine culture today. occasional flutters. MFM US on 06/2406/24/25 -?-?-?-?-?-?-?-?-?-?-?-?- 19w 2d 247 lb (-11 lb) 110/71 Negative -?-?-?-?-?-?-?-?-?-?-?-?- Negative 150 -?-?-?-?-?-?-?-?-?-?-?-?- JV- repeating lf ts today. patient remains asymptomatic. no lof, vaginal bleeding, or cramping. 07/07/25 -?-?-?-?-?-?-?-?-?-?-?-?- 21w 1d 248 lb 3 oz (-9 lb 13 oz) 106/70 Negative -?-?-?-?-?-?-?-?-?-?-?-?- Negative 158 -?-?-?-?-?-?-?-?-?-?-?-?- KW- no vb/crampi ng. good fm. Sees GI on 07/10 but feeling fatigued and overall not well. luzmaria for round ligament pain. 08/08/25 -?-?-?-?-?-?-?-?-?-?-?-?- 25w 5d 251 lb 3 oz (-6 lb 13 oz) 92/65 Negative -?-?-?-?-?-?-?-?-?-?-?-?- Negative 140 -?-?-?-?-?-?-?-?-?-?-?-?- KW- no vb/lof/ct x. good fm. will monitor liver enzymes until after . 08/25/25 -?-?-?-?-?-?-?-?-?-?-?-?- 28w 1d 252 lb 8 oz (-5 lb 8 oz) 105/71 Negative -?-?-?-?-?-?-?-?-?-?-?-?- Negative 148 30 -?-?-?-?-?-?-?-?-?-?-?-?- MH-No VB, LOF. G ood Fm. Reassured=mucoid discharge. No irritation. Tdap, larc. 28 wk labs pending. Declines flu 09/09/25 -?-?-?-?-?-?-?-?-?-?-?-?- 30w 2d 249 lb 7 oz (-8 lb 9 oz) 106/71 Negative -?-?-?-?-?-?-?-?-?-?-?-?- Negative 150 Cephalic 3 -?-?-?-?-?-?-?-?-?-?-?-?- 50 -3 JV- pt see n today for contractions that picked up recently. She was in [place] over the weekend and was breech. is vtx today, unchanged. giving procardia 10 mg q 6 prn contractions. bp noted to be nomal/low and precautions discussed. 09/19/25 -?-?-?-?-?-?-?-?-?-?-?-?- 31w 5d 253 lb 9 oz (-4 lb 7 oz) 125/82 Negative -?-?-?-?-?-?-?-?-?-?-?-?- Negative 140 -?-?-?-?-?-?-?-?-?-?-?-?- KW- patient adde d on today for contractions over the last 3 days that have been painful-decreased movement and watery vaginal discharge. to for evaluation. ROS Constitutional Constitutional: Reports systems reviewed and no addt'l complaints, except as documented and as per HPI ENT HEENT: Reports systems reviewed and no addt'l complaints, except as documented Cardiovascular Cardiovascular: Reports systems reviewed and no addt'l complaints, except as documented Respiratory/Chest Respiratory/Chest: Reports systems reviewed and no addt'l complaints, except as documented Gastrointestinal Gastrointestinal: Reports as per HPI Genitourinary Genitourinary: Reports as per HPI Musculoskeletal Musculoskeletal: Reports systems reviewed and no addt'l complaints, except as documented Integumentary Integumentary: Reports systems reviewed and no addt'l complaints, except as documented Neurologic Neurologic: Reports systems reviewed and no addt'l complaints, except as documented Physical Exam Const alert, oriented x3 and no apparent distress HEENT Head and Scalp: normocephalic and atraumatic Neck full ROM and no lymphadenopathy Chest inspection of chest normal Resp normal respiratory effort GI GI Narrative: gravid, abdomen nontender, AGA Manual OB Exam: dilated, effaced and station NST FHR Rate Baby A Baseline: 140 Variability:: Moderate Accelerations:: 15 x 15 Decelerations:: None NST Reactive:: Yes FHR Category:: Category I Uterine Activity:: regular q 2-4 Assessment & Plan (1) labor: COMMENT: transported 09/04 given steroids (2) UTI in : PLAN: Plan variable decel 31 weeks admitted overnight for observation Charges/Coding Multi Select Codes Visit Charges Observation E&M Codin Initial observation care L3 Urinary/Genital Urinary/Genital CPT Codes: 33863-94 non-stress test Interp
--- NOTE | 2025-09-19 18:02 | US_ITS ---
PROCEDURE: OB BIOPHYSICAL PROF W/O NST 09/19/2025 REASON FOR EXAM: LABOR TECHNIQUE: Procedure Code: USBIOWO Modality: US Procedure: OB BIOPHYSICAL PROF W/O NST FINDINGS Amniotic fluid index 18.6. Largest fluid pocket 6.3 cm. Heartbeat 156 beats per minute. position cephalic. Overall amniotic fluid index 18.6. The placenta is posterior The child receives 2 points for breathing, body movement, tone and amniotic fluid volume US/OB Biophysical Prof W/O NST IMPRESSION: BIOPHYSICAL PROFILE SCORE 8/8. Within normal limits [facility]
[2025-09-19] MEDS: Lactated Ringers 500 ML IV.SOLN. 1000 ML IV (19:46)
[2025-09-19 20:01] LABS: Hematocrit 36.7 % (37-47); Hemoglobin 12.3 g/dL (12.0-15.0); Immature Granulocytes Count 0.080 X10^3/uL (0.0-0.0); Mean Corp Hgb Conc 33.5 g/dL (32-36); Mean Corpuscular Volume 90.8 fL (81-99); Mean Platelet Vol. 9.5 fl (6.2-12.0); NRBC Flagged by Analyzer 0 % (0-5); Platelet Count 273 K/mm3 (150-450); RBC Distribution Width CV 12.6 % (11.6-14.6); RBC Distribution Width SD 41.7 fl (35.1-43.9); Red Blood Count 4.04 M/mm3 (4.2-5.4); White Blood Count 12.1 K/mm3 (4.4-11.0)
[2025-09-19 20:07] LABS: Squamous Epithelial Cells - UA 10-25 SEEN /hpf (5-10); Transitional Epithelial - Ur 0-5 SEEN /hpf (0-5)
[2025-09-19 20:08] LABS: Red Blood Cells-Urine 0-5 SEEN /hpf (0-5)
[2025-09-19 20:15] VITALS: BP 109/70; PULSE 91; RESP 14; TEMP 37.1
[2025-09-20 00:16] VITALS: BP 107/60; PULSE 84; RESP 17; TEMP 36.8
[2025-09-20 04:05] VITALS: BP 86/45; PULSE 86
[2025-09-20 04:50] VITALS: BP 91/55; PULSE 86
--- NOTE | 2025-09-20 08:16 | OB.TRI.HP_ITS ---
HPI - General HPI Narrative contractions decreased overnight no bleeding, feeling much better. no lof Maternal Data Information BRIANA Calculator Estimated Delivery Date Method Current WG Current Estimate 11/16/25 Ultrasound #1 31w 6d Other Estimates 11/10/25 LMP (Certain) 32w 5d PFSH PFSH Medical History Current every day vaping Seasonal allergies Anxiety Home Medications ?Medication ?Instructions ?Recorded ?Last Taken ?Type multivit-min no.71-iron fum 28 1 cap PO DAILY 03/27/25 09/19/25 08:00 History mg-folate no.1 1 mg-dha 300 mg 1 cap capsule (PNV-[place]) cholecalciferol (vitamin D3) 1,250 1,250 mcg PO QWEEK 4 weeks #4 tabs 08/08/25 09/10/25 22:00 Rx mcg (50,000 unit) tablet 1,250 mcg nifedipine 10 mg capsule 10 mg PO Q6H PRN contraction s #30 09/09/25 09/18/25 17:00 Rx caps 10 mg Allergy/AdvReac Type Severity Reaction Status Date / Time No Known Allergies Allergy Verified 09/19/25 16:32 Family History Grandmother Hypertension Maternal Grandfather Colon cancer Paternal- age of onset unknown Grandmother Diabetes Paternal Depression Maternal Surgical History S/P tonsillectomy S/P knee surgery Social History adopted: No household members: spouse and children housing: house number of children: 1 current occupational status: unemployed current occupational exposures/hazards: No pets and animals: Yes (Avoid litter box) pets and animals: cat(s) and dog(s) history of recent travel: No sexually active: Yes Smoking Status: Former smoker Electronic Cigarette Use: with nicotine alcohol intake: current alcohol intake frequency: holidays/special occasions only details: Not after finding out substance use type: marijuana well-balanced diet: daily or most days caffeine: Yes Type: carbonated beverages Number of servings: 2 eating out: rarely or never during the past year weight has: remained stable what type of physical activity do you participate in: walking frequency: daily duration: 30-45 minutes/day ty/buddhism: None seatbelt use: always do you feel safe at home: Yes additional social history: - Sana Cruz( Still lives in [place]) History 2 Elective abortions Hx Para 1 Spontaneous abortions Hx # Term Pregnancies Ectopic pregnancies Hx # Pregnancies Multiple births # of living children 1 Past Pregnancies Del. Date Name GA/Weeks Outcome Route Bth Weight Infant Gen Labor Lgth Anesthesia Del Locatn Provider FOB 11/27/22 Ayaan 37 live - full term 6lbs 9oz Male epidural [facility] [place] Delivery Date: 11/27/22 Last Updated by: Belle Arango hemorrhage after delivery, no transfusion Visit Details Expected Delivery Route/Plan Labor Preferences- CB/BF classes: no labor support person: Boo labor intervention preferences: [] pain management options preferred: epidural cut cord/dad catch: cord : yes PP control planned: [] discussed possible routes of delivery and associated risks: [] special requests: [] Plans Covid status: [] Flu vaccine: declines Tdap vaccine: given Rhogam: NA LARC form signed: yes Problem list reviewed and updated with the most current plan of care details and appropriate orders placed. Relevant counseling for the gestational age provided. Continue routine care and follow up unless otherwise noted in visit notes/problem list details OB Flowsheet Initial Weight: 258 lb Date -?-?-?-?-?-?-?-?-?-?-?-?- EGA Weight BP Urine Prot -?-?-?-?-?-?-?-?-?-?-?-?- Glucose FHR FuHt Pres Dilation -?-?-?-?-?-?-?-?-?-?-?-?- Effaced St Visit Note 04/07/25 -?-?-?-?-?-?-?-?-?-?-?-?- 8w 1d 258 lb 9 oz (+9 oz) -?-?-?-?-?-?-?-?-?-?-?-?- 164 -?-?-?-?-?-?-?-?-?-?-?-?- KW- CRL 1.72cm c ons with early US. accepts NIPT. 04/25/25 -?-?-?-?-?-?-?-?-?-?-?-?- 10w 5d 255 lb (-3 lb) 118/83 -?-?--?-?-?-?-?-?-?-?-?-?- -?-?-?-?-?-?-?-?-?-?-?-?- Nurse visit for UTI sx. RX sent Nurse visit for UTI sx- had previous elevated bacteria count in urine but not h igh enough to indicate infection. Repeat culture and RX sent 05/12/25 -?-?-?-?-?-?-?-?-?-?-?-?- 13w 1d 252 lb (-6 lb) 133/86 Negative -?--?-?-?-?-?-?-?-?-?-?-?- Negative 180 -?-?-?-?-?-?-?-?-?-?-?-?- SM- no vb crampi ng 06/13/25 -?-?-?-?-?-?-?-?-?-?-?-?- 17w 5d 247 lb 6 oz (-10 lb 10 oz) 98/62 Trace -?-?-?-?-?-?-?-?-?-?-?-?- Negative 150 -?-?-?-?-?-?-?-?-?-?-?-?- KW- no vb/crampi ng. repeat urine culture today. occasional flutters. MFM US on 06/2406/24/25 -?-?-?-?-?-?-?-?-?-?-?-?- 19w 2d 247 lb (-11 lb) 110/71 Negative -?-?-?-?-?-?-?-?-?-?-?-?- Negative 150 -?-?-?-?-?-?-?-?-?-?-?-?- JV- repeating lf ts today. patient remains asymptomatic. no lof, vaginal bleeding, or cramping. 07/07/25 -?-?-?-?-?-?-?-?-?-?-?-?- 21w 1d 248 lb 3 oz (-9 lb 13 oz) 106/70 Negative -?-?-?-?-?-?-?-?-?-?-?-?- Negative 158 -?--?-?-?-?-?-?-?-?-?-?-?- KW- no vb/crampi ng. good fm. Sees GI on 07/10 but feeling fatigued and overall not well. luzmaria for round ligament pain. 08/08/25 -?-?-?-?-?-?-?-?-?-?-?-?- 25w 5d 251 lb 3 oz (-6 lb 13 oz) 92/65 Negative -?-?-?-?-?-?-?-?-?-?-?-?- Negative 140 -?-?-?-?-?-?-?-?-?-?-?-?- KW- no vb/lof/ct x. good fm. will monitor liver enzymes until after . 08/25/25 -?-?-?-?-?-?-?-?-?-?-?-?- 28w 1d 252 lb 8 oz (-5 lb 8 oz) 105/71 Negative -?-?-?-?-?-?-?-?-?-?-?-?- Negative 148 30 -?-?-?-?-?-?-?-?-?-?-?-?- MH-No VB, LOF. G ood Fm. Reassured=mucoid discharge. No irritation. Tdap, larc. 28 wk labs pending. Declines flu 09/09/25 -?-?-?-?-?-?-?-?-?-?-?-?- 30w 2d 249 lb 7 oz (-8 lb 9 oz) 106/71 Negative -?-?-?-?--?-?-?-?-?-?-?-?- Negative 150 Cephalic 3 -?-?-?-?-?-?-?-?-?-?-?-?- 50 -3 JV- pt see n today for contractions that picked up recently. She was in [place] over the weekend and was breech. is vtx today, unchanged. giving procardia 10 mg q 6 prn contractions. bp noted to be nomal/low and precautions discussed. 09/19/25 -?-?-?-?-?-?-?-?-?-?-?-?- 31w 5d 253 lb 9 oz (-4 lb 7 oz) 125/82 Negative -?-?-?-?-?-?-?-?-?-?-?-?- Negative 140 -?-?-?-?-?-?-?-?-?-?-?-?- KW- patient adde d on today for contractions over the last 3 days that have been painful-decreased movement and watery vaginal discharge. to for evaluation. ROS Constitutional Constitutional: Reports systems reviewed and no addt'l complaints, except as documented and as per HPI ENT HEENT: Reports systems reviewed and no addt'l complaints, except as documented Cardiovascular Cardiovascular: Reports systems reviewed and no addt'l complaints, except as documented Respiratory/Chest Respiratory/Chest: Reports systems reviewed and no addt'l complaints, except as documented Gastrointestinal Gastrointestinal: Reports as per HPI Genitourinary Genitourinary: Reports as per HPI Musculoskeletal Musculoskeletal: Reports systems reviewed and no addt'l complaints, except as documented Integumentary Integumentary: Reports systems reviewed and no addt'l complaints, except as documented Neurologic Neurologic: Reports systems reviewed and no addt'l complaints, except as documented Physical Exam Const alert, oriented x3 and no apparent distress HEENT Head and Scalp: normocephalic and atraumatic Neck full ROM and no lymphadenopathy Chest inspection of chest normal Resp normal respiratory effort GI GI Narrative: gravid, abdomen nontender, AGA Manual OB Exam: dilated, effaced and station NST FHR Rate Baby A Baseline: 140 Variability:: Moderate Accelerations:: 15 x 15 Decelerations:: None NST Reactive:: Yes FHR Category:: Category I Uterine Activity:: regular q 2-4 Assessment & Plan (1) UTI in : (2) labor: COMMENT: transported 09/04 given steroids. 3 cm no cervical change. vertex PLAN: Plan stable dc home on keflex Charges/Coding Multi Select Codes Visit Charges Observation E&M Codin Observation care discharge Urinary/Genital Urinary/Genital CPT Codes: 39890-66 non-stress test Interp
== END 2025-09-20 09:25 | disposition home or self-care (01) ==
LOC: WPOUT 16:24 → WP 16:25
PROVIDERS: Advanced Practice Midwife; PCP Internal Medicine; Referring Provider Obstetrics & Gynecology; Visit Provider Obstetrics & Gynecology
DX: O47.03 False labor before 37 completed weeks of gestation, third trimester (principal); Z87.891 Personal history of nicotine dependence; O23.43 Unspecified infection of urinary tract in pregnancy, third trimester; Z3A.31 31 weeks gestation of pregnancy
CPT/HCPCS: 36415; 59025; 59050; 76819; 81001; 84112; 85025; 86850; 86900; 86901; 99221; G0378

== ENCOUNTER 2025-10-02 16:30 | Outpatient (CLI) | payer MEDICAID, SELFPAY ==
[2025-10-02 16:59] VITALS: BP 123/76; PULSE 107; RESP 16; TEMP 36.4; O2SAT 96
[2025-10-02 17:12] VITALS: BMI 39.8
--- NOTE | 2025-10-02 18:07 | OB.TRI.HP_ITS ---
HPI - General HPI Narrative TREMAINE HERNANDEZ, is a 25 y/o @ 33 weeks 4 days who presents to ob triage with contractions. She was seen in [place] for threatened labor at 29 weeks and is status post 2 doses of celestone there. She was 3cm when we sent her there at 29 weeks. She take procardia q 6 hours as needed for contraction pain. Her last visit in the office the cervix was difficult to reach but prior to that she was 350/-3. Maternal Data Information BRIANA Calculator Estimated Delivery Date Method Current WG Current Estimate 11/16/25 Ultrasound #1 33w 4d Other Estimates 11/10/25 LMP (Certain) 34w 3d PFSH PFSH Medical History Current every day vaping Seasonal allergies Anxiety Home Medications Medication Instructions Recorded Last Taken Type multivit-min no.71-iron fum 28 1 cap PO DAILY 03/27/25 09/19/25 08:00 History mg-folate no.1 1 mg-dha 300 mg 1 cap capsule (PNV-[place]) cholecalciferol (vitamin D3) 1,250 1,250 mcg PO QWEEK 4 weeks #4 tabs 08/08/25 09/10/25 22:00 Rx mcg (50,000 unit) tablet 1,250 mcg nifedipine 10 mg capsule 10 mg PO Q6H PRN contraction s #30 09/09/25 09/18/25 17:00 Rx caps 10 mg Allergy/AdvReac Type Severity Reaction Status Date / Time No Known Allergies Allergy Verified 09/29/25 08:48 Family History Grandmother Hypertension Maternal Grandfather Colon cancer Paternal- age of onset unknown Grandmother Diabetes Paternal Depression Maternal Surgical History S/P tonsillectomy S/P knee surgery Social History adopted: No household members: spouse and children housing: house number of children: 1 current occupational status: unemployed current occupational exposures/hazards: No pets and animals: Yes (Avoid litter box) pets and animals: cat(s) and dog(s) history of recent travel: No sexually active: Yes Smoking Status: Former smoker Electronic Cigarette Use: with nicotine alcohol intake: current alcohol intake frequency: holidays/special occasions only details: Not after finding out substance use type: marijuana well-balanced diet: daily or most days caffeine: Yes Type: carbonated beverages Number of servings: 2 eating out: rarely or never during the past year weight has: remained stable what type of physical activity do you participate in: walking frequency: daily duration: 30-45 minutes/day ty/mu-ism: None seatbelt use: always do you feel safe at home: Yes additional social history: - [place]- Norma Cruz( Still lives in [place]) History 2 Elective abortions Hx Para 1 Spontaneous abortions Hx # Term Pregnancies Ectopic pregnancies Hx # Pregnancies Multiple births # of living children 1 Past Pregnancies Del. Date Name GA/Weeks Outcome Route Bth Weight Gen Labor Lgth Anesthesia Del Locatn Provider FOB 11/27/22 Ayaan 37 live - full term 6lbs 9oz Male epidural [facility] Delivery Date: 11/27/22 Last Updated by: Belle Arango hemorrhage after delivery, no transfusion Visit Details Expected Delivery Route/Plan Labor Preferences- CB/BF classes: no labor support person: Boo labor intervention preferences: [] pain management options preferred: epidural cut cord/dad catch: cord : yes PP control planned: [] discussed possible routes of delivery and associated risks: [] special requests: [] Plans Covid status: [] Flu vaccine: declines Tdap vaccine: given Rhogam: NA LARC form signed: yes Problem list reviewed and updated with the most current plan of care details and appropriate orders placed. Relevant counseling for the gestational age provided. Continue routine care and follow up unless otherwise noted in visit notes/problem list details OB Flowsheet Initial Weight: 258 lb Date - - - - - - - - - - - - - EGA Weight BP Urine Prot - - - - - - - - - - - - - Glucose FHR FuHt Pres Dilation - - - - - - - - - - - - - Effaced St Visit Note 04/07/25 - - - - - - - - - - - - - 8w 1d 258 lb 9 oz (+9 oz) 123/86 - - - - - - - - - - - - - 164 - - - - - - - - - - - - - KW- CRL 1.72cm c ons with early US. accepts NIPT. 04/25/25 - - - - - - - - - - - - - 10w 5d 255 lb (-3 lb) 118/83 - - - - - - - - - - - - - - - - - - - - - - - - - - Nurse visit for UTI sx. RX sent Nurse visit for UTI sx- had previous elevated bacteria count in urine but not high enough to indicate infection. Repeat culture and RX sent 05/12/25 - - - - - - - - - - - - - 13w 1d 252 lb (-6 lb) 133/86 Negative - - - - - - - - - - - - - Negative 180 - - - - - - - - - - - - - SM- no vb crampi ng 06/13/25 - - - - - - - - - - - - - 17w 5d 247 lb 6 oz (-10 lb 10 oz) 98/62 Trace - - - - - - - - - - - - - Negative 150 - - - - - - - - - - - - - KW- no vb/crampi ng. repeat urine culture today. occasional flutters. MFM US on 06/2406/24/25 - - - - - - - - - - - - - 19w 2d 247 lb (-11 lb) 110/71 Negative - - - - - - - - - - - - - Negative 150 - - - - - - - - - - - - - JV- repeating lf ts today. patient remains asymptomatic. no lof, vaginal bleeding, or cramping. 07/07/25 - - - - - - - - - - - - - 21w 1d 248 lb 3 oz (-9 lb 13 oz) 106/70 Negative - - - - - - - - - - - - - Negative 158 - - - - - - - - - - - - - KW- no vb/crampi ng. good fm. Sees GI on 07/10 but feeling fatigued and overall "not well". bellyband for round ligament pain. 08/08/25 - - - - - - - - - - - - - 25w 5d 251 lb 3 oz (-6 lb 13 oz) 92/65 Negative - - - - - - - - - - - - - Negative 140 - - - - - - - - - - - - - KW- no vb/lof/ct x. good fm. will monitor liver enzymes until after . 08/25/25 - - - - - - - - - - - - - 28w 1d 252 lb 8 oz (-5 lb 8 oz) 105/71 Negative - - - - - -- - - - - - - - Negative 148 30 - - - - - - - - - - - - - MH-No VB, LOF. G ood Fm. Reassured=mucoid discharge. No irritation. Tdap, larc. 28 wk labs pending. Declines flu 09/09/25 - - - - - - - - - - - - - 30w 2d 249 lb 7 oz (-8 lb 9 oz) 106/71 Negative - - - - - - - - - - - - - Negative 150 Cephalic 3 - - - - - - - - - - - - - 50 -3 JV- pt see n today for contractions that picked up recently. She was in [place] over the weekend and was breech. is vtx today, unchanged. giving procardia 10 mg q 6 prn contractions. bp noted to be nomal/low and precautions discussed. 09/19/25 - - - - - - - - - - - - - 31w 5d 253 lb 9 oz (-4 lb 7 oz) 125/82 Negative - - - - - - - - - - - - - Negative 140 - - - - - - - - - - - - - KW- patient adde d on today for contractions over the last 3 days that have been painful-decreased movement and watery vaginal discharge. to for evaluation. 09/24/25 - - - - - - - - - - - - - 32w 3d 255 lb (-3 lb) 114/74 - - - - - - - - - - - - - 140 34 - - - - - - - - - - - - - SM- no vb lof go od fm ctx decreased and then increased last night, procardia treats them well, co some pelvic pain 09/29/25 - - - - - - - - - - - - - 33w 1d 255 lb 1 oz (-2 lb 15 oz) 101/69 Negative - - - - - - - - - - - - - Negative 145 36 0 - - - - - - - - - - - - - 50 -3 JV- JV- still having mild contractions with proc ardia. Error on last check, was not 3 cm. title 19 signed today ROS Constitutional Constitutional: Reports systems reviewed and no addt'l complaints, except as documented Gastrointestinal Gastrointestinal: Denies bloating, constipation, cramping, diarrhea, nausea or vomiting Genitourinary Genitourinary: Reports other Details: Denies vaginal odor, vaginal bleeding, or vaginal discharge ; Denies difficulty urinating or flank pain Physical Exam HEENT normocephalic Resp normal respiratory effort and normal air movement no CVA tenderness Narrative: cx is 3.5/80/-2 soft and mid position. Extremity normal to inspection General Extremity: edema bilateral (trace ) NST FHR Rate Baby A Baseline: 140 Variability:: Moderate Accelerations:: 15 x 15 Decelerations:: None NST Reactive:: Yes FHR Category:: Category I Assessment & Plan (1) Threatened labor, antepartum: (2) Morbid obesity: COMMENT: BMI 41 growth US q 4 weeks, weekly nsts 34 weeks on (3) Fatty liver in mother during : (4) History of marijuana use: COMMENT: Stopped with +HPT, informed of tox screen inital & random (5) Hx of hemorrhage, currently : COMMENT: no transfusion (6) Anxiety: (7) Supervision of high-risk : QUALIFIERS: Trimester: third trimester Qualified Code(s): O09.93 - Supervision of high risk , unspecified, third trimester COMMENT: PRR , BRIANA 11/10/25, girl Amira ABHAY Marroquin (8) Depression: QUALIFIERS: Depression Type: unspecified Qualified Code(s): F32.A - Depression, unspecified COMMENT: sertraline (9) : QUALIFIERS: Weeks of gestation: 33 weeks Qualified Code(s): Z3A.33 - 33 weeks gestation of COMMENT: elects NIPT: low risk, female, never had & declines carrier testing PLAN: Plan plan to give IV fluids now and another single dose of celestone. Patient wants to go home now that contractions are spacing out however since made cervical change I would like to at least watch her a little longer. Plan is that if no contractions for one whole hour she can go home since she lives right here in town. But if does not go an hour without contractions then I would like to monitor her over night. Charges/Coding Multi Select Codes Visit Charges Office Visit/Consults: [id number] OV L3 Est 20min Urinary/Genital Urinary/Genital CPT Codes: 70939-68 non-stress test Interp
[2025-10-02] MEDS: LACTATED RINGERS 1,000 ML 999 ML IV (18:30)
[2025-10-02] MEDS: Betamethasone/Betamethasone 30 MG/5 ML Vial 12 MG IM (18:37)
[2025-10-02 19:37] VITALS: RESP 16; TEMP 36.4
[2025-10-02 19:38] VITALS: PULSE 94; O2SAT 98
[2025-10-02 19:39] VITALS: BP 117/70; PULSE 96
[2025-10-02] MEDS: Lactated Ringers 1,000 ML 50 ML IV (20:11)
== END 2025-10-02 22:40 | disposition home or self-care (01) ==
LOC: WPOUT 16:42 → WP 16:42
PROVIDERS: PCP Internal Medicine; Referring Provider Obstetrics & Gynecology; Visit Provider Obstetrics & Gynecology
DX: O47.03 False labor before 37 completed weeks of gestation, third trimester (principal); Z3A.32 32 weeks gestation of pregnancy
CPT/HCPCS: 96372; 96360; 96361; 59025; 59050; 99221; G0378; J0702

== ENCOUNTER 2025-10-03 18:33 | Outpatient (CLI) | payer MEDICAID, SELFPAY ==
[2025-10-03 19:09] VITALS: BMI 41.0
[2025-10-03] MEDS: Betamethasone/Betamethasone 30 MG/5 ML Vial 12 MG IM (19:10)
--- NOTE | 2025-10-07 08:55 | OB.TRI.PN ---
Progress Notes Date of Service: 10/03/25 Progress Note: at 33.5 weeks for IM injection of celestone 12mg for history of labor in current . Charges/Coding Procedures Urinary/Genital [id number]: No Charge Multi Select Codes Urinary/Genital Urinary/Genital CPT Codes: No Charge Assessment & Plan (1) Threatened labor, antepartum: (2) UTI in : (3) labor: COMMENT: transported 09/04 given steroids. 3 cm no cervical change. vertex (4) Contraception management: COMMENT: Wants tubal 6 wk pp. Needs title 19 signed (5) Morbid obesity: COMMENT: BMI 41 growth US q 4 weeks, weekly nsts 34 weeks on (6) Fatty liver in mother during : (7) Family history of autism in sibling: COMMENT: Brother (8) History of marijuana use: COMMENT: Stopped with +HPT, informed of tox screen inital & random (9) Hx of hemorrhage, currently : COMMENT: no transfusion (10) Anxiety: (11) Depression: QUALIFIERS: Depression Type: unspecified Qualified Code(s): F32.A - Depression, unspecified COMMENT: sertraline (12) Supervision of high-risk : QUALIFIERS: Trimester: third trimester Qualified Code(s): O09.93 - Supervision of high risk , unspecified, third trimester COMMENT: PRR , BRIANA 11/10/25, girl Amira ABHAY Marroquin (13) : QUALIFIERS: Weeks of gestation: 34 weeks Qualified Code(s): Z3A.34 - 34 weeks gestation of COMMENT: elects NIPT: low risk, female, never had & declines carrier testing
== END 2025-10-03 19:11 | disposition home or self-care (01) ==
LOC: WPOUT 18:36 → WP 18:36
PROVIDERS: PCP Internal Medicine; Referring Provider Advanced Practice Midwife; Visit Provider Advanced Practice Midwife
DX: O47.1 False labor at or after 37 completed weeks of gestation (principal); Z3A.33 33 weeks gestation of pregnancy
CPT/HCPCS: 96372; 99221; G0378; J0702

== ENCOUNTER 2025-10-09 19:25 | Outpatient (CLI) | payer MEDICAID, SELFPAY ==
[2025-10-09 19:42] VITALS: BMI 40.3
[2025-10-09 19:50] VITALS: BP 115/63; PULSE 121; RESP 14; TEMP 36.9
[2025-10-09 19:51] VITALS: PULSE 113; O2SAT 97
[2025-10-09 20:06] LABS: Mucous, Urine 0 SEEN /hpf (<or=2+); Red Blood Cells-Urine 0 SEEN /hpf (0-5)
[2025-10-09 20:10] LABS: Color, Urine Yellow (Yellow); Glucose, Dipstick Normal (Normal); Ketone-Dipstick Negative (Negative); Leukocyte Esterase-Dipstick 100 /ul (Negative); Nitrite-Dipstick Negative (Negative); Occult Blood-Urine 10 /ul (Negative); Protein-Dipstick 30 mg/dl (Negative); Specific Gravity, Urine 1.010 (1.002-1.030); Urine Bilirubin Dipstick Negative (Negative)
[2025-10-09 20:50] LABS: Squamous Epithelial Cells - UA 0-5 SEEN /hpf (5-10)
--- NOTE | 2025-10-09 22:29 | OB.TRI.PN_ITS ---
Progress Notes Progress Note: Patient presented to triage with contractions. She is s/p two courses of two doses of celestone due to threatened labor at 29w and 33w. After 2 hour rule out, her contractions spaced out and she did not make cervical change per Evonne Díaz RN's checks. Concern for malpresentation due to ballotability. BSUS performed by this provider demonstrated cephalic presentation. Laboratory Studies: Laboratory Tests 10/09/25 Range/Units 20:00 Urine Color Yellow (Yellow) Urine Clarity Sl. Cloudy (Clear) Urine pH 6.0 (5.0 - 8.0) Ur Specific [place] 1.010 (1.002-1.030) Urine Protein 30 H (Negative) mg/dl Urine Glucose (UA) Normal (Normal) mg/dl Urine Ketones Negative (Negative) mg/dl Urine Occult Blood 10 H (Negative) /ul Urine Nitrite Negative (Negative) Urine Bilirubin Negative (Negative) mg/dL Urine Urobilinogen Normal (Normal) mg/dl Ur Leukocyte Esterase 100 H (Negative) /ul Urine RBC 0 SEEN (0-5) /hpf Urine WBC 5-10 SEEN (0-5) /hpf Ur Squamous Epith Cells 0-5 SEEN (5-10) /hpf Urine Bacteria 1+ (None Seen) /hpf Urine Mucus 0 SEEN (<or=2+) /hpf Assessment & Plan (1) Threatened labor, antepartum: PLAN: s/p initial and rescue course of steroids close f/u in office on Monday PTL precautions reviewed (2) UTI in : QUALIFIERS: Trimester: third trimester Qualified Code(s): O23.43 - Unspecified infection of urinary tract in , third trimester PLAN: culture pending
== END 2025-10-09 22:20 | disposition home or self-care (01) ==
LOC: WPOUT 19:26 → WP 19:27
PROVIDERS: PCP Internal Medicine; Referring Provider Student in an Organized Health Care Education/Training Program; Visit Provider Student in an Organized Health Care Education/Training Program
DX: O47.9 False labor, unspecified (principal); O23.43 Unspecified infection of urinary tract in pregnancy, third trimester; Z3A.00 Weeks of gestation of pregnancy not specified
CPT/HCPCS: 59025; 59050; 76815; 81001; 87086; 87088; 99221; G0378

== ENCOUNTER 2025-10-17 20:10 | Outpatient (CLI) | payer MEDICAID, SELFPAY ==
[2025-10-17 20:25] VITALS: PULSE 116; RESP 16; TEMP 36.9; O2SAT 99
[2025-10-17 20:26] VITALS: BP 134/78; PULSE 116
[2025-10-17 20:31] VITALS: BMI 35.8
[2025-10-17] MEDS: Lactated Ringers 1,000 ML 999 ML IV (21:06)
[2025-10-17 22:14] LABS: Hematocrit 36.2 % (37-47); Hemoglobin 12.5 g/dL (12.0-15.0); Immature Granulocytes Count 0.050 X10^3/uL (0.0-0.0); Mean Corp Hgb Conc 34.5 g/dL (32-36); Mean Corpuscular Volume 90.0 fL (81-99); Mean Platelet Vol. 10.0 fl (6.2-12.0); NRBC Flagged by Analyzer 0 % (0-5); POSITIVE MORPHOLOGY YES; Platelet Count 234 K/mm3 (150-450); RBC Distribution Width CV 14.0 % (11.6-14.6); RBC Distribution Width SD 45.8 fl (35.1-43.9); Red Blood Count 4.02 M/mm3 (4.2-5.4); White Blood Count 8.8 K/mm3 (4.4-11.0)
[2025-10-17 22:24] LABS: Differential Indicated SCAN CRITERIA MET
[2025-10-17 22:29] LABS: Color, Urine Yellow (Yellow); Glucose, Dipstick Normal (Normal); Ketone-Dipstick 5 mg/dl (Negative); Leukocyte Esterase-Dipstick 100 /ul (Negative); Nitrite-Dipstick Negative (Negative); Occult Blood-Urine 10 /ul (Negative); Protein-Dipstick 30 mg/dl (Negative); Specific Gravity, Urine 1.020 (1.002-1.030); Urine Bilirubin Dipstick Negative (Negative)
[2025-10-17 22:57] LABS: Mucous, Urine 2+ /hpf (<or=2+)
[2025-10-17 22:58] LABS: Squamous Epithelial Cells - UA 5-10 SEEN /hpf (5-10)
--- NOTE | 2025-10-17 22:59 | NURSING ---
Medical screening tool score discussed with Dr Persaud per myself and Corrine Tejada RN. Patient assessment and cervical exam unchanged from previous physician assessment. Patient contractions now 3-6 minutes apart and patient states she feels they have spaced out. Patient states she is comfortable being discharged and has an appointment next Monday. Physician and nursing staff comfortable discharging patient at this time.
[2025-10-17 23:01] LABS: Red Blood Cells-Urine 0-5 SEEN /hpf (0-5)
[2025-10-17 23:28] LABS: Reactive Lymphocyte 2+
[2025-10-17 23:29] LABS: Differential Comment SCANNED
--- NOTE | 2025-10-28 15:26 | OB.TRI.PN_ITS ---
Progress Notes Date of Service: 10/17/25 Progress Note: Patient presents for triage evaluation secondary to contractions FHT: 130 Moderate variability reactive no decelerations category I tracing [place]: irregular Contractions Assessment and plan: 35 weeks threatened labor Reactive NST, reassuring maternal and status patient discharged to home to follow-up as scheduled. See problem list details for additional plan information. Laboratory Studies: Laboratory Tests 10/17/25 Range/Units 21:05 WBC 8.8 (4.4-11.0) K/mm3 RBC 4.02 L (4.2-5.4) M/mm3 Hgb 12.5 (12.0-15.0) g/dL Hct 36.2 L (37-47) % MCV 90.0 (81-99) fL MCH 31.1 (27.0-32.0) pg MCHC 34.5 (32-36) g/dL RDW Std Deviation 45.8 H (35.1-43.9) fl RDW Coeff of [place] 14.0 (11.6-14.6) % Plt Count 234 (150-450) K/mm3 MPV 10.0 (6.2-12.0) fl Immature Gran % (Auto) 0.600 (0.0-0.9) % Neut % (Auto) 62.4 (47-70) % Lymph % (Auto) 29.8 (19-41) % [place] % (Auto) 6.4 (0-10) % Eos % (Auto) 0.5 (0-5) % Baso % (Auto) 0.3 (0-1) % Absolute Neuts (auto) 5.5 (2.0-7.7) X10^3/uL Absolute Lymphs (auto) 2.62 (0.83-4.51) X10^3/uL Nucleated RBC % 0 (0-5) % Differential Comment SCANNED Reactive Lymphocytes 2+ Urine Color Yellow (Yellow) Urine Clarity Sl. Cloudy (Clear) Urine pH 6.0 (5.0 - 8.0) Ur Specific [place] 1.020 (1.002-1.030) Urine Protein 30 H (Negative) mg/dl Urine Glucose (UA) Normal (Normal) mg/dl Urine Ketones 5 H (Negative) mg/dl Urine Occult Blood 10 H (Negative) /ul Urine Nitrite Negative (Negative) Urine Bilirubin Negative (Negative) mg/dL Urine Urobilinogen 1 H (Normal) mg/dl Ur Leukocyte Esterase 100 H (Negative) /ul Urine RBC 0-5 SEEN (0-5) /hpf Urine WBC 5-10 SEEN (0-5) /hpf Ur Squamous Epith Cells 5-10 SEEN (5-10) /hpf Urine Bacteria 3+ (None Seen) /hpf Urine Mucus 2+ (<or=2+) /hpf Blood Type A POSITIVE Antibody Screen NEGATIVE Charges/Coding Procedures Urinary/Genital [id number]: [id number] non-stress test Interp
== END 2025-10-17 23:48 | disposition home or self-care (01) ==
LOC: WPOUT 20:15 → WP 20:16
PROVIDERS: PCP Internal Medicine; Referring Provider Obstetrics & Gynecology; Visit Provider Obstetrics & Gynecology
DX: O47.03 False labor before 37 completed weeks of gestation, third trimester (principal); Z3A.35 35 weeks gestation of pregnancy
CPT/HCPCS: 36415; 59025; 59050; 81001; 85025; 86850; 86900; 86901; 87086; 87088; 99221; G0378

== ENCOUNTER → 2025-10-22 | Outpatient (CLI) | payer MEDICAID, SELFPAY | END | disposition home or self-care (01) | LOC: LABSPEC 16:18 | PROVIDERS: PCP Internal Medicine; Visit Provider Obstetrics & Gynecology | DX: O09.93 Supervision of high risk pregnancy, unspecified, third trimester (principal); Z3A.36 36 weeks gestation of pregnancy | CPT/HCPCS: 87081 ==

== ENCOUNTER 2025-10-23 19:49 | Outpatient (CLI) | payer MEDICAID, SELFPAY ==
[2025-10-23 20:12] VITALS: BMI 41.5
[2025-10-23 20:14] VITALS: BP 111/72; PULSE 112; PULSE 115; RESP 24; TEMP 37.1; O2SAT 98
[2025-10-23 20:19] VITALS: PULSE 110; O2SAT 98
[2025-10-23 21:12] VITALS: PULSE 104; O2SAT 97
[2025-10-23] MEDS: hydrOXYzine PAM 25 MG Capsule 50 MG PO (21:20)
--- NOTE | 2025-10-23 21:28 | OB.TRI.HP_ITS ---
HPI - General HPI Narrative TREMAINE HERNANDEZ, is a 25 y/o @ 36 weeks 4 days who presents to L&D with pain in her mid abdomen when walking. She notices it feels better when she hunches forward. She has been in and out of L&D for false labor since early 30 weeks and has received 2 rounds of celestone. She has been 4-5 cm with low station for several weeks. The nurse checked her before I came in and states that she is still 4-5 cm but with some bulging membranes that are not coming out past the cervix. I have offered her vistaril to help get some rest and rule out labor. Maternal Data Information BRIANA Calculator Estimated Delivery Date Method Current WG Current Estimate 11/16/25 Ultrasound #1 36w 4d Other Estimates 11/10/25 LMP (Certain) 37w 3d [facility] Medical History Current every day vaping Seasonal allergies Anxiety Home Medications ?Medication ?Instructions ?Recorded ?Last Taken ?Type multivit-min no.71-iron fum 28 1 cap PO DAILY 03/27/25 10/23/25 10:00 History mg-folate no.1 1 mg-dha 300 mg capsule (PNV-[place]) amoxicillin 500 mg capsule 500 mg PO BID 10/23/25 1203/14 10:00 History Allergy/AdvReac Type Severity Reaction Status Date / Time No Known Allergies Allergy Verified 10/23/25 20:11 Family History Grandmother Hypertension Maternal Grandfather Colon cancer Paternal- age of onset unknown Grandmother Diabetes Paternal Depression Maternal Surgical History S/P tonsillectomy S/P knee surgery Social History adopted: No household members: spouse and children housing: house number of children: 1 current occupational status: unemployed current occupational exposures/hazards: No pets and animals: Yes (Avoid litter box) pets and animals: cat(s) and dog(s) history of recent travel: No sexually active: Yes Smoking Status: Former smoker Electronic Cigarette Use: with nicotine alcohol intake: current alcohol intake frequency: holidays/special occasions only details: Not after finding out substance use type: marijuana well-balanced diet: daily or most days caffeine: Yes Type: carbonated beverages Number of servings: 2 eating out: rarely or never during the past year weight has: remained stable what type of physical activity do you participate in: walking frequency: daily duration: 30-45 minutes/day ty/church: None seatbelt use: always do you feel safe at home: Yes additional social history: - Edgar- Norma Cruz( Still lives in [place]) History 2 Elective abortions Hx Para 1 Spontaneous abortions Hx # Term Pregnancies Ectopic pregnancies Hx # Pregnancies Multiple births # of living children 1 Past Pregnancies Del. Date Name GA/Weeks Outcome Route Bth Weight Gen Labor Lgth Anesthesia Del Locatn Provider FOB 11/27/22 Ayaan 37 live - full term 6lbs 9oz Male epidural Alex[facility] Delivery Date: 11/27/22 Last Updated by: Belle Arango hemorrhage after delivery, no transfusion Visit Details Expected Delivery Route/Plan Labor Preferences- CB/BF classes: no labor support person: Boo labor intervention preferences: [] pain management options preferred: epidural cut cord/dad catch: cord : yes PP control planned: [] discussed possible routes of delivery and associated risks: [] special requests: [] Plans Covid status: [] Flu vaccine: declines Tdap vaccine: given Rhogam: NA LARC form signed: yes Problem list reviewed and updated with the most current plan of care details and appropriate orders placed. Relevant counseling for the gestational age provided. Continue routine care and follow up unless otherwise noted in visit notes/problem list details OB Flowsheet Initial Weight: 258 lb Date -?-?-?-?-?-?-?-?-?-?-?-?- EGA Weight BP Urine Prot -?-?-?-?-?-?-?-?-?-?-?-?- Glucose FHR FuHt Pres Dilation -?-?-?-?-?-?-?-?-?-?-?-?- Effaced St Visit Note 04/07/25 -?-?-?-?-?-?-?-?-?-?-?-?- 8w 1d 258 lb 9 oz (+9 oz) 123/86 -?-?-?-?-?-?-?-?-?-?-?-?- 164 -?-?-?-?-?-?-?-?-?-?-?-?- KW- [facility] 1.72cm c ons with early US. accepts NIPT. 04/25/25 -?-?-?-?-?-?-?-?-?-?-?-?- 10w 5d 255 lb (-3 lb) 118/83 -?-?-?-?-?-?-?-?-?-?-?-?- -?-?-?-?-?-?-?-?-?-?-?-?- Nurse visit for UTI sx. RX sent Nurse visit for UTI sx- had previous elevated bacteria count in urine but not high enough to indicate infection. Repeat culture and RX sent 05/12/25 -?-?-?-?-?-?-?--?-?-?-?-?- 13w 1d 252 lb (-6 lb) 133/86 Negative -?-?-?-?-?-?-?-?-?-?-?-?- Negative 180 -?-?-?-?-?-?-?-?-?-?-?-?- SM- no vb crampi ng 06/13/25 -?-?-?-?-?-?-?-?-?-?-?-?- 17w 5d 247 lb 6 oz (-10 lb 10 oz) 98/62 Trace -?-?-?-?-?-?-?-?-?-?-?-?- Negative 150 -?-?-?-?-?-?-?-?-?-?-?-?- KW- no vb/crampi ng. repeat urine culture today. occasional flutters. MFM US on 06/2406/24/25 -?-?-?-?-?-?-?-?-?-?-?-?- 19w 2d 247 lb (-11 lb) 110/71 Negative -?-?-?-?-?-?-?-?-?-?-?-?- Negative 150 -?-?-?-?-?-?-?-?-?-?-?-?- JV- repeating lf ts today. patient remains asymptomatic. no lof, vaginal bleeding, or cramping. 07/07/25 -?-?-?-?-?-?-?-?-?-?-?-?- 21w 1d 248 lb 3 oz (-9 lb 13 oz) 106/70 Negative -?-?-?-?-?-?-?-?-?-?-?-?- Negative 158 -?-?-?-?-?-?-?-?-?-?-?-?- KW- no vb/crampi ng. good fm. Sees GI on 07/10 but feeling fatigued and overall not well. luzmaria for round ligament pain. 08/08/25 -?-?-?-?-?-?-?-?-?-?-?-?- 25w 5d 251 lb 3 oz (-6 lb 13 oz) 92/65 Negative -?-?-?-?-?-?-?-?-?-?-?-?- Negative 140 -?-?-?-?-?-?-?-?-?-?-?-?- KW- no vb/lof/ct x. good fm. will monitor liver enzymes until after . 08/25/25 -?-?-?-?-?-?-?-?-?-?-?-?- 28w 1d 252 lb 8 oz (-5 lb 8 oz) 105/71 Negative -?-?-?-?-?-?-?-?-?-?-?-?- Negative 148 30 -?-?-?-?-?-?-?-?-?-?-?-?- MH-No VB, LOF. G ood Fm. Reassured=mucoid discharge. No irritation. Tdap, larc. 28 wk labs pending. Declines flu 09/09/25 -?-?-?-?-?-?-?-?-?-?-?-?- 30w 2d 249 lb 7 oz (-8 lb 9 oz) 106/71 Negative -?-?-?-?-?-?-?-?-?-?-?-?- Negative 150 Cephalic 3 -?-?-?-?-?-?-?-?-?-?-?-?- 50 -3 JV- pt see n today for contractions that picked up recently. She was in [place] over the weekend and was breech. is vtx today, unchanged. giving procardia 10 mg q 6 prn contractions. bp noted to be nomal/low and precautions discussed. 09/19/25 -?-?-?-?-?-?-?-?-?-?-?-?- 31w 5d 253 lb 9 oz (-4 lb 7 oz) 125/82 Negative -?--?-?-?-?-?-?-?-?-?-?-?- Negative 140 -?-?-?-?-?-?-?-?-?-?-?-?- KW- patient adde d on today for contractions over the last 3 days that have been painful-decreased movement and watery vaginal discharge. to for evaluation. 09/24/25 -?-?-?-?-?-?-?-?-?-?-?-?- 32w 3d 255 lb (-3 lb) 114/74 -?-?-?-?-?-?--?-?-?-?-?-?- 140 34 -?-?-?-?-?-?-?-?-?-?-?-?- SM- no vb lof go od fm ctx decreased and then increased last night, procardia treats them well, co some pelvic pain 09/29/25 -?-?-?-?-?-?-?-?-?-?-?-?- 33w 1d 255 lb 1 oz (-2 lb 15 oz) 101/69 Negative -?-?-?-?-?-?-?-?-?-?-?-?- Negative 145 36 0 -?-?-?-?-?-?-?-?-?-?-?-?- 50 -3 JV- JV- still having mild contractions with proc ardia. Error on last check, was not 3 cm. title 19 signed today 10/03/25 -?-?-?-?-?-?-?-?-?-?-?-?- 33w 5d 252 lb 6 oz (-5 lb 10 oz) 117/79 -?-?-?-?-?-?-?-?-?-?-?-?- 140 3.5 -?-?-?-?-?-?-?-?-?-?-?-?- 80 -2 SM- no vb lof good fm irregular ctx pelvic pressure. unchanged exam from previous 10/06/25 -?-?-?-?-?-?-?-?-?-?-?-?- 34w 1d 249 lb 9 oz (-8 lb 7 oz) 116/80 Negative -?-?-?-?-?-?-?-?-?-?-?-?- Negative 140 36 4.5 -?-?-?-?-?-?-?-?-?-?-?-?- 80 -2 JV- no cer vical change from hospital stay. Plan is to come in if more than 10 contractions in an hour but after 35 weeks can wait until are 5 min apart. she lives very close to the hospital. 10/15/25 -?-?-?-?-?-?-?-?-?-?-?-?- 35w 3d 256 lb 6 oz (-1 lb 10 oz) 98/65 Negative -?-?-?-?-?-?-?-?-?-?-?-?- Negative 145 37 -?-?-?-?-?-?-?-?-?-?-?-?- KV- Good FM. Sti ll having ctx every day, irregular and occasionally very painful. No LOF or VB. s/p two courses of steroids. Defer SVE today. 10/22/25 -?-?-?-?-?-?-?-?-?-?-?-?- 36w 3d 258 lb 4 oz (+4 oz) 114/75 Negative -?-?-?-?-?-?-?-?-?-?-?-?- Negative 140 37 Cephalic 5 -?-?-?-?-?-?-?-?-?-?-?-?- 80 -1 JV- GBS co llected, plan rpt lfts, nst reactive. ROS Constitutional Constitutional: Reports systems reviewed and no addt'l complaints, except as documented Gastrointestinal Gastrointestinal: Denies bloating, constipation, cramping, diarrhea, nausea or vomiting Genitourinary Genitourinary: Reports other Details: Denies vaginal odor, vaginal bleeding, or vaginal discharge ; Denies difficulty urinating or flank pain Physical Exam HEENT normocephalic Resp normal respiratory effort and normal air movement no CVA tenderness Extremity normal to inspection General Extremity: edema bilateral (trace ) NST FHR Rate Baby A Baseline: 140 Variability:: Moderate Accelerations:: 15 x 15 Decelerations:: None NST Reactive:: Yes FHR Category:: Category I Assessment & Plan (1) Fatty liver: (2) Threatened labor, antepartum: COMMENT: s/p initial steroid course 09/04- and rescue steroid course 10/02- (3) UTI in : QUALIFIERS: Trimester: third trimester Qualified Code(s): O23.43 - Unspecified infection of urinary tract in , third trimester (4) labor: QUALIFIERS: labor trimester: third trimester labor delivery status: without delivery Qualified Code(s): O60.03 - labor without delivery, third trimester COMMENT: transported 09/04 given steroids. 3 cm no cervical change. vertex (5) Contraception management: QUALIFIERS: Contraceptive encounter type: sterilization Qualified Code(s): Z30.2 - Encounter for sterilization COMMENT: Wants tubal 6 wk pp. title 19 signed - scanned 09/30/25 (6) Morbid obesity: COMMENT: BMI 41 growth US q 4 weeks, weekly nsts 34 weeks on (7) Fatty liver in mother during : (8) Family history of autism in sibling: COMMENT: Brother (9) History of marijuana use: COMMENT: Stopped with +HPT, informed of tox screen inital & random (10) Hx of hemorrhage, currently : COMMENT: no transfusion (11) Anxiety: (12) Depression: QUALIFIERS: Depression Type: unspecified Qualified Code(s): F32.A - Depression, unspecified COMMENT: sertraline (13) Supervision of high-risk : QUALIFIERS: Trimester: third trimester Qualified Code(s): O09.93 - Supervision of high risk , unspecified, third trimester COMMENT: PRR , BRIANA 11/10/25, girl Amira ABHAY Marroquin (14) : QUALIFIERS: Weeks of gestation: 36 weeks Qualified Code(s): Z3A.36 - 36 weeks gestation of COMMENT: elects NIPT: low risk, female, never had & declines carrier testing PLAN: Plan vistaril and rule out labor Charges/Coding Multi Select Codes Visit Charges Office Visit/Consults: 22264 OV L3 Est 20min Urinary/Genital Urinary/Genital CPT Codes: 35404-61 non-stress test Interp
[2025-10-23 22:50] VITALS: PULSE 92; O2SAT 99
== END 2025-10-23 23:19 | disposition home or self-care (01) ==
LOC: WPOUT 19:54 → WP 19:54
PROVIDERS: PCP Internal Medicine; Visit Provider Obstetrics & Gynecology
DX: O47.03 False labor before 37 completed weeks of gestation, third trimester (principal); E66.01 Morbid (severe) obesity due to excess calories; Z3A.36 36 weeks gestation of pregnancy; Z30.2 Encounter for sterilization; O99.213 Obesity complicating pregnancy, third trimester; O23.43 Unspecified infection of urinary tract in pregnancy, third trimester; O99.343 Other mental disorders complicating pregnancy, third trimester; F32.A Depression, unspecified; F41.9 Anxiety disorder, unspecified; Z87.891 Personal history of nicotine dependence
CPT/HCPCS: 59025; 59050; 99221; G0378

== ENCOUNTER 2025-10-29 16:45 | Inpatient (IN) | payer MEDICAID, SELFPAY ==
[2025-10-29] VITALS (52 sets, daily range): BP systolic 105–132; BP diastolic 55–83; PULSE 86–117; RESP 16; TEMP 36.2–36.8; O2SAT 81–100; BMI 41.8; BMI 1855.0; BMI 20251210.0
--- NOTE | 2025-10-29 14:32 | US_ITS ---
PROCEDURE: OB BIOPHYSICAL PROF W/O NST 10/29/2025 REASON FOR EXAM: DECELERATIONS IN OFFICE TECHNIQUE: Procedure Code: [id number] Modality: US Procedure: OB BIOPHYSICAL PROF W/O NST COMPARISON: 09/19/2025 FINDINGS Number: 1 Position: Vertex Placental Position: Placental Abnormalities: None. ESTIMATED GESTATIONAL AGE: Baseline: 37 weeks 3 days ESTIMATED DATE OF DELIVERY: Baseline: 11/16/2025 BIOPHYSICAL ASSESSMENT: Amniotic Fluid Volume: Subjectively normal. Amniotic Fluid Index: 21.9 (8-24 cm normal range) Cardiac Motion: 138 beats per minute (average) Trunk and Limb Motion: Present. Amniotic Fluid Volume: 2 /2 Movements: 2 /2 Tone: 2 /2 Breathin /2 Total: 6 /8 US/OB Biophysical Prof W/O NST IMPRESSION: BIOPHYSICAL PROFILE SCORE 6 /8. Reading Location: [id number]
[2025-10-29] MEDS: Oxytocin 15 Units/NS 250ml 15 UNITS/250 ML IV.SOLN 2 UNITS IV (17:10)
[2025-10-29] MEDS: Lactated Ringers 1,000 ML 999 ML IV (17:10)
--- NOTE | 2025-10-29 17:15 | HP.PCM.OB_ITS ---
HPI - General General Date of Admission: 10/29/25 Date of Service: 10/29/25 HPI Narrative TREMAINE HERNANDEZ, is a 25 F at 37.3 weeks who presents to unit for deceleration in office on NST. BPP was 68 but SVE is 6.5/70/-2, decision made to admit and augment labor Maternal Data Information BRIANA Calculator Estimated Delivery Date Method Current WG Current Estimate 11/16/25 Ultrasound #1 37w 3d Other Estimates 11/10/25 LMP (Certain) 38w 2d Final BRIANA: 11/16/25 Final BRIANA Source: US >20 weeks Gestational age: 37.3 weeks PFSH PFSH Medical History Current every day vaping Seasonal allergies Anxiety Home Medications ?Medication ?Instructions ?Recorded ?Last Taken ?Type multivit-min no.71-iron fum 28 1 cap PO DAILY 03/27/25 10/28/25 22:00 History mg-folate no.1 1 mg-dha 300 mg 1 cap capsule (PNV-[place]) Allergy/AdvReac Type Severity Reaction Status Date / Time No Known Allergies Allergy Verified 10/29/25 13:39 Family History Grandmother Hypertension Maternal Grandfather Colon cancer Paternal- age of onset unknown Grandmother Diabetes Paternal Depression Maternal Surgical History S/P tonsillectomy S/P knee surgery Social History adopted: No household members: spouse and children housing: house number of children: 1 current occupational status: unemployed current occupational exposures/hazards: No pets and animals: Yes (Avoid litter box) pets and animals: cat(s) and dog(s) history of recent travel: No sexually active: Yes Smoking Status: Former smoker Electronic Cigarette Use: with nicotine alcohol intake: current alcohol intake frequency: holidays/special occasions only details: Not after finding out substance use type: marijuana well-balanced diet: daily or most days caffeine: Yes Type: carbonated beverages Number of servings: 2 eating out: rarely or never during the past year weight has: remained stable what type of physical activity do you participate in: walking frequency: daily duration: 30-45 minutes/day ty/samaritan: None seatbelt use: always do you feel safe at home: Yes additional social history: - Sana Cruz( Still lives in [place]) History 2 Elective abortions Hx Para 1 Spontaneous abortions Hx # Term Pregnancies Ectopic pregnancies Hx # Pregnancies Multiple births # of living children 1 Past Pregnancies Del. Date Name GA/Weeks Outcome Route Bth Weight Infant Gen Labor Lgth Anesthesia Del Locatn Provider FOB 11/27/22 Ayaan 37 live - full term 6lbs 9oz Male epidural Alexey [facility] Delivery Date: 11/27/22 Last Updated by: Belle Arango hemorrhage after delivery, no transfusion Visit Details Expected Delivery Route/Plan Labor Preferences- CB/BF classes: no labor support person: Boo labor intervention preferences: [] pain management options preferred: epidural cut cord/dad catch: cord : yes PP control planned: [] discussed possible routes of delivery and associated risks: [] special requests: [] Plans Covid status: [] Flu vaccine: declines Tdap vaccine: given Rhogam: NA LARC form signed: yes Problem list reviewed and updated with the most current plan of care details and appropriate orders placed. Relevant counseling for the gestational age provided. Continue routine care and follow up unless otherwise noted in visit notes/problem list details OB Flowsheet Initial Weight: 258 lb Date -?-?-?-?-?-?-?-?-?-?-?-?- EGA Weight BP Urine Prot -?-?-?-?-?-?-?-?-?-?-?-?- Glucose FHR FuHt Pres Dilation -?-?-?-?-?-?-?-?-?-?-?-?- Effaced St Visit Note 04/07/25 -?-?-?-?-?-?-?-?-?-?-?-?- 8w 1d 258 lb 9 oz (+9 oz) 123/86 -?-?-?-?-?-?-?-?-?-?-?-?- 164 -?-?-?-?-?-?-?-?-?-?-?-?- KW- CRL 1.72cm c ons with early US. accepts NIPT. 04/25/25 -?-?-?-?-?-?-?-?-?-?-?-?- 10w 5d 255 lb (-3 lb) 118/83 -?-?-?-?-?-?-?-?-?-?-?-?- -?-?-?-?-?-?-?-?-?-?-?-?- Nurse visit for UTI sx. RX sent Nurse visit for UTI sx- had previous elevated bacteria count in urine but not high enough to indicate infection. Repeat culture and RX sent 05/12/25 -?-?-?-?-?-?-?-?-?-?-?-?- 13w 1d 252 lb (-6 lb) 133/86 Negative -?-?-?-?-?-?-?-?-?-?-?-?- Negative 180 -?-?-?-?-?-?-?-?-?-?-?-?- SM- no vb crampi ng 06/13/25 -?-?-?-?-?-?-?-?-?-?-?-?- 17w 5d 247 lb 6 oz (-10 lb 10 oz) 98/62 Trace -?-?-?-?-?-?-?-?-?-?-?-?- Negative 150 -?-?-?-?-?-?-?-?-?-?-?-?- KW- no vb/crampi ng. repeat urine culture today. occasional flutters. MFM US on 06/2406/24/25 -?-?-?-?-?-?-?-?-?-?-?-?- 19w 2d 247 lb (-11 lb) 110/71 Negative -?-?-?-?-?-?-?-?-?-?-?-?- Negative 150 -?-?-?-?-?-?-?-?-?-?-?-?- JV- repeating lf ts today. patient remains asymptomatic. no lof, vaginal bleeding, or cramping. 07/07/25 -?-?-?-?-?-?-?-?-?-?-?-?- 21w 1d 248 lb 3 oz (-9 lb 13 oz) 106/70 Negative -?-?-?-?-?-?-?-?-?-?-?-?- Negative 158 -?-?-?-?-?-?-?-?-?-?-?-?- KW- no vb/crampi ng. good fm. Sees GI on 07/10 but feeling fatigued and overall not well. luzmaria for round ligament pain. 08/08/25 -?-?-?-?-?-?-?-?-?-?-?-?- 25w 5d 251 lb 3 oz (-6 lb 13 oz) 92/65 Negative -?-?-?-?-?-?-?-?-?-?-?-?- Negative 140 -?-?-?-?-?-?-?-?-?-?-?-?- KW- no vb/lof/ct x. good fm. will monitor liver enzymes until after . 08/25/25 -?-?-?-?-?-?-?-?-?-?-?-?- 28w 1d 252 lb 8 oz (-5 lb 8 oz) 105/71 Negative -?-?-?-?-?-?-?--?-?-?-?-?- Negative 148 30 -?-?-?-?-?-?-?-?-?-?-?-?- MH-No VB, LOF. G ood Fm. Reassured=mucoid discharge. No irritation. Tdap, larc. 28 wk labs pending. Declines flu 09/09/25 -?-?-?-?-?-?-?-?-?-?-?-?- 30w 2d 249 lb 7 oz (-8 lb 9 oz) 106/71 Negative -?-?-?-?-?-?-?-?-?-?-?-?- Negative 150 Cephalic 3 -?-?-?-?-?-?-?-?-?-?-?-?- 50 -3 JV- pt see n today for contractions that picked up recently. She was in [place] over the weekend and was breech. is vtx today, unchanged. giving procardia 10 mg q 6 prn contractions. bp noted to be nomal/low and precautions discussed. 09/19/25 -?-?-?-?-?-?-?-?-?-?-?-?- 31w 5d 253 lb 9 oz (-4 lb 7 oz) 125/82 Negative -?-?-?-?-?-?-?-?-?-?-?-?- Negative 140 -?-?-?-?-?-?-?-?-?-?-?-?- KW- patient adde d on today for contractions over the last 3 days that have been painful-decreased movement and watery vaginal discharge. to for evaluation. 09/24/25 -?-?-?-?-?-?-?-?-?-?-?-?- 32w 3d 255 lb (-3 lb) 114/74 -?-?-?-?-?-?-?-?-?-?-?-?- 140 34 -?-?-?-?-?-?-?-?-?-?-?-?- SM- no vb lof go od fm ctx decreased and then increased last night, procardia treats them well, co some pelvic pain 09/29/25 -?-?-?-?-?-?-?-?-?-?-?-?- 33w 1d 255 lb 1 oz (-2 lb 15 oz) 101/69 Negative -?-?-?-?-?-?-?-?-?-?-?-?- Negative 145 36 0 -?-?-?-?-?-?-?-?-?-?-?-?- 50 -3 JV- JV- still having mild contractions with proc ardia. Error on last check, was not 3 cm. title 19 signed today 10/03/25 -?-?-?-?-?-?-?-?-?-?-?-?- 33w 5d 252 lb 6 oz (-5 lb 10 oz) 117/79 -?-?-?-?-?-?-?-?-?-?-?-?- 140 3.5 -?-?-?-?-?-?-?-?-?-?-?-?- 80 -2 SM- no vb lof good fm irregular ctx pelvic pressure. unchanged exam from previous 10/06/25 -?-?-?-?-?-?-?-?-?-?-?-?- 34w 1d 249 lb 9 oz (-8 lb 7 oz) 116/80 Negative -?-?-?-?-?-?-?-?-?-?-?-?- Negative 140 36 4.5 -?-?-?-?-?-?-?-?-?-?-?-?- 80 -2 JV- no cer vical change from hospital stay. Plan is to come in if more than 10 contractions in an hour but after 35 weeks can wait until are 5 min apart. she lives very close to the hospital. 10/15/25 -?-?-?-?-?-?-?-?-?-?-?-?- 35w 3d 256 lb 6 oz (-1 lb 10 oz) 98/65 Negative -?-?-?-?-?-?-?-?-?-?-?-?- Negative 145 37 -?-?-?-?-?-?-?-?-?-?-?-?- KV- Good FM. Sti ll having ctx every day, irregular and occasionally very painful. No LOF or VB. s/p two courses of steroids. Defer SVE today. 10/22/25 -?-?-?-?-?-?-?-?-?-?-?-?- 36w 3d 258 lb 4 oz (+4 oz) 114/75 Negative -?-?-?-?-?-?-?-?-?-?-?-?- Negative 140 37 Cephalic 5 -?-?-?-?-?-?-?-?-?-?-?-?- 80 -1 JV- GBS co llected, plan rpt lfts, nst reactive. 10/29/25 -?-?-?-?-?-?-?-?-?-?-?-?- 37w 3d 260 lb 4 oz (+2 lb 4 oz) 106/72 Negative -?-?-?-?-?-?-?-?-?-?-?-?- Negative 135 Cephalic -?-?-?-?-?-?-?-?-?-?-?-?- kw-no vb/lof/ctx . decel on monitor to WP for BPP NST FHR Rate Baby A Baseline: 130 Variability:: Moderate Accelerations:: 15 x 15 Decelerations:: None NST Reactive:: Yes FHR Category:: Category I Uterine Activity:: 2-4 ROS Constitutional Constitutional: Denies change in weight, fatigue, fever(s), headache(s), poor a ppetite or weakness Eyes Eyes: Denies blurry vision, change in vision, floaters, seeing flashes or spots in vision ENT HEENT: Denies dizziness, headache(s), loss taste/smell or sore throat Cardiovascular Cardiovascular: Denies chest pain, dizziness, dyspnea, irregular heart rhythm, lightheadedness, palpitations or rapid heart rate Respiratory/Chest Respiratory/Chest: Denies change in mental status, chest tightness, cough, dyspnea or breast pain Gastrointestinal Gastrointestinal: Denies anorexia, chewing difficulty, constipation, diarrhea or weight changes Genitourinary Genitourinary: Denies difficulty urinating, dysuria, flank pain, genital pain, urinary frequency or urinary urgency Musculoskeletal Musculoskeletal: Denies back pain, difficulty walking, extremity pain, joint pain, muscle cramps or muscle weakness Integumentary Integumentary: Denies lesions or unusual bruising Neurologic Neurologic: Denies abnormal movements, abnormal speech, dizziness, numbness, seizure-like activity, syncope or weakness Psychiatric Psychiatric: Denies behavioral changes, change in appetite, confusion, depressi on, homicidal ideation, suicidal ideation or suicidal thoughts Endocrine Endocrinology: Denies excessive sweating, polydipsia or polyuria Hematologic/Lymphatic Hematologic/Lymphatic: Denies anemia Allergic/Immunologic Allergic/Immunologic: Denies itchy eyes, lip swelling, throat swelling, tongue swelling or wheezing Vital Signs Vital Signs Vital Signs: 10/29/25 14:44 10/29/25 14:44 10/29/25 14:44 Temperature Temperature Source Temporal Pulse Rate 107 H Respiratory Rate 16 Blood Pressure BP Systolic BP Diastolic Pulse Ox 10/29/25 14:44 10/29/25 14:44 10/29/25 14:45 Temperature 98.2 F Temperature Source Pulse Rate Respiratory Rate Blood Pressure 112/73 BP Systolic 112 BP Diastolic 73 Pulse Ox 94 10/29/25 14:45 10/29/25 14:45 Temperature Temperature Source Pulse Rate 108 H Respiratory Rate Blood Pressure BP Systolic BP Diastolic Pulse Ox 93 Weight Weight: 258 lb 13.163 oz Body Mass Index (BMI) 41.8 Physical Exam Const alert, oriented x3 and no apparent distress General Appearance: cooperative Orientation / Consciousness: awake HEENT normocephalic Neck full ROM Lymph Lymphatic: no lymphadenopathy noted Chest inspection of chest normal Resp normal respiratory effort and normal air movement Effort and Inspection: able to speak in complete sentences and symmetric chest movement GI soft to palpation and non-tender Inspection: gravid Palpation: soft; Negative for tender external exam normal Back/Spine normal to inspection Extremity normal to inspection and full ROM Skin no rashes or lesions noted Psych mental status grossly normal Appearance: grossly normal Speech: normal speech Labs Labs Labs: Blood Type A POSITIVE Antibody Screen NEGATIVE Hct, (37-47) 36.2 % L Hgb, (12.0-15.0) 12.5 g/dL Obstetrics Ultrasound Syphilis Total Ab, (Nonreactive) Nonreactive Rubella IgG Antibody, (Nonreactive) REAC Hep Bs Antigen, (Negative) Negative Hepatitis C Antibody, (Nonreactive) Nonreactive Hepatitis C Ab (EIA), (Non Reactive) Non Reactive Chlamydia DNA (VAISHALI), (Negative) Negative N.gonorrhoeae DNA (VAISHALI), (Negative) Negative HIV 1&2 Antibody, (Nonreactive) Nonreactive Glucose 1 Hr 50 gm, (70-140) 95 mg/dL Assessment & Plan (1) Encounter for induction of labor: COMMENT: BPP 6/8 and advanced dilation PLAN: Patient presents IOL, plan management for with pitocin/AROM. Pain management: plans epidural. GBS negative. Management of any complications: see list I have reviewed the [facility] and made any clinically relevant updates. Dr Gregorio aware of assessment, plan and admission. agrees with above (2) Fatty liver: (3) Threatened labor, antepartum: COMMENT: s/p initial steroid course 10/16-17 and rescue steroid course 10/02- (4) UTI in : QUALIFIERS: Trimester: third trimester Qualified Code(s): O23.43 - Unspecified infection of urinary tract in , third trimester (5) Contraception management: QUALIFIERS: Contraceptive encounter type: sterilization Qualified Code(s): Z30.2 - Encounter for sterilization COMMENT: Wants tubal 6 wk pp. title 19 signed - scanned 09/30/25 (6) Morbid obesity: COMMENT: BMI 41 growth US q 4 weeks, weekly nsts 34 weeks on (7) labor: QUALIFIERS: labor trimester: third trimester labor delivery status: without delivery Qualified Code(s): O60.03 - labor without delivery, third trimester COMMENT: transported 09/04 given steroids. 3 cm no cervical change. vertex (8) Fatty liver in mother during : (9) Family history of autism in sibling: COMMENT: Brother (10) History of marijuana use: COMMENT: Stopped with +HPT, informed of tox screen inital & random (11) Hx of hemorrhage, currently : COMMENT: no transfusion (12) Anxiety: (13) Depression: QUALIFIERS: Depression Type: unspecified Qualified Code(s): F32.A - Depression, unspecified COMMENT: sertraline (14) Supervision of high-risk : QUALIFIERS: Trimester: third trimester Qualified Code(s): O09.93 - Supervision of high risk , unspecified, third trimester COMMENT: PRR , BRIANA 11/10/25, girl Amira ABHAY Marroquin (15) : QUALIFIERS: Weeks of gestation: 37 weeks Qualified Code(s): Z3A.37 - 37 weeks gestation of COMMENT: elects NIPT: low risk, female, never had & declines carrier testing Charges/Coding Multi Select Codes Urinary/Genital Urinary/Genital CPT Codes: No Charge
[2025-10-29 17:43] LABS: Hematocrit 37.0 % (37-47); Hemoglobin 12.1 g/dL (12.0-15.0); Immature Granulocytes Count 0.060 X10^3/uL (0.0-0.0); Mean Corp Hgb Conc 32.7 g/dL (32-36); Mean Corpuscular Volume 92.7 fL (81-99); Mean Platelet Vol. 9.7 fl (6.2-12.0); NRBC Flagged by Analyzer 0 % (0-5); POSITIVE MORPHOLOGY YES; Platelet Count 223 K/mm3 (150-450); RBC Distribution Width CV 15.6 % (11.6-14.6); RBC Distribution Width SD 53.2 fl (35.1-43.9); Red Blood Count 3.99 M/mm3 (4.2-5.4); White Blood Count 10.1 K/mm3 (4.4-11.0)
[2025-10-29] MEDS: Lactated Ringers 1,000 ML 200 ML IV (18:11)
[2025-10-29 18:13] LABS: Differential Indicated SCAN CRITERIA MET
[2025-10-29 18:24] LABS: Syphilis Antibodies Nonreactive (Nonreactive)
[2025-10-29] MEDS: fentaNYL-bupivacaine (epidural) 100 ML BAG EPIDURAL (18:40)
--- NOTE | 2025-10-29 19:21 | PCM.PN.BLA ---
Progress Note comfortable with epidural current tracing: FHT: 130 Moderate variability reactive no decelerations category I tracing Portia: 2-3 Contractions Membranes:ruptured for clear fluid SVE:6/80/-1 pitocin at 2mu A/P: Continue with position changes Titrate pitocin per protocol Epidural per anesthesia GBS neg Anticipate Dr Gregorio aware of above assessment and agrees with plan of care Assessment & Plan Assessment/Plan (1) Encounter for induction of labor: (2) Fatty liver: (3) Threatened labor, antepartum: (4) UTI in : QUALIFIERS: Trimester: third trimester Qualified Code(s): O23.43 - Unspecified infection of urinary tract in , third trimester (5) labor: QUALIFIERS: labor trimester: third trimester labor delivery status: without delivery Qualified Code(s): O60.03 - labor without delivery, third trimester (6) Contraception management: QUALIFIERS: Contraceptive encounter type: sterilization Qualified Code(s): Z30.2 - Encounter for sterilization (7) Morbid obesity: (8) Fatty liver in mother during : (9) Family history of autism in sibling: (10) History of marijuana use: (11) Hx of hemorrhage, currently : (12) Anxiety: (13) Depression: QUALIFIERS: Depression Type: unspecified Qualified Code(s): F32.A - Depression, unspecified (14) Supervision of high-risk : QUALIFIERS: Trimester: third trimester Qualified Code(s): O09.93 - Supervision of high risk , unspecified, third trimester (15) : QUALIFIERS: Weeks of gestation: 37 weeks Qualified Code(s): Z3A.37 - 37 weeks gestation of Multi Select Codes Urinary/Genital Urinary/Genital CPT Codes: No Charge
[2025-10-29 20:14] LABS: Differential Comment SCANNED
--- NOTE | 2025-10-29 22:49 | OB.VAGDELI_ITS ---
Assessment & Plan (1) Vaginal delivery: COMMENT: KW 37.3 girl BPP 6/8 and advanced dilation (2) Encounter for induction of labor: COMMENT: BPP 6/8 and advanced dilation (3) Fatty liver: (4) Threatened labor, antepartum: COMMENT: s/p initial steroid course 09/04- and rescue steroid course 10/02- (5) UTI in : QUALIFIERS: Trimester: third trimester Qualified Code(s): O23.43 - Unspecified infection of urinary tract in , third trimester (6) labor: QUALIFIERS: labor trimester: third trimester labor delivery status: without delivery Qualified Code(s): O60.03 - labor without delivery, third trimester COMMENT: transported 09/04 given steroids. 3 cm no cervical change. vertex (7) Contraception management: QUALIFIERS: Contraceptive encounter type: sterilization Qualified Code(s): Z30.2 - Encounter for sterilization COMMENT: Wants tubal 6 wk pp. title 19 signed - scanned 09/30/25 (8) Morbid obesity: COMMENT: BMI 41 growth US q 4 weeks, weekly nsts 34 weeks on (9) Fatty liver in mother during : (10) Family history of autism in sibling: COMMENT: Brother (11) History of marijuana use: COMMENT: Stopped with +HPT, informed of tox screen inital & random (12) Hx of hemorrhage, currently : COMMENT: no transfusion (13) Anxiety: (14) Depression: QUALIFIERS: Depression Type: unspecified Qualified Code(s): F32.A - Depression, unspecified COMMENT: sertraline (15) Supervision of high-risk : QUALIFIERS: Trimester: third trimester Qualified Code(s): O09.93 - Supervision of high risk , unspecified, third trimester COMMENT: PRR , BRIANA 11/10/25, girl Amira BRITTANY Kuo, ABHAY Dominguez (16) : QUALIFIERS: Weeks of gestation: 37 weeks Qualified Code(s): Z3A.37 - 37 weeks gestation of COMMENT: elects NIPT: low risk, female, never had & declines carrier testing Maternal Data Information BRIANA Calculator Estimated Delivery Date Method Current WG Current Estimate 11/16/25 Ultrasound #1 37w 3d Other Estimates 11/10/25 LMP (Certain) 38w 2d Final BRIANA: 11/16/25 Final BRIANA Source: US >20 weeks Gestational age: 37.3 Vaginal Delivery Maternal Presentation Maternal Presentation: Other Maternal Presentation: Presented to unit for induction of labor for BPP 6/8 and advanced dilation Type of Induction: Pitocin and Amniotomy Medical Reason for Induction: Compromise: list: (BPP 6/8) Vaginal Delivery Information Procedure Performed: Spontaneous Vaginal Delivery Surgeon/Practitioner: Lisseth Roper Date of Procedure: 10/29/25 Pre-Procedure Diagnosis: see problem list Post-Procedure Diagnosis: same Type of anesthesia: Epidural Estimated Blood Loss: 150 Time of Delivery: 22:31 Findings Description of procedure: Progressed well to 10cm dilated and made steady progress with effective maternal pushing. Delivered the head in VINCE presentation. The head was delivered atraumatically and no nuchal cord was identified. The anterior and posterior shoulders delivered without complication followed by the rest of the infant and the was placed on the maternal abdomen. Delayed cord clamping was employed for approximately 3 minutes. Cord was clamped and cut and gentle traction was applied to the cord and the placenta delivered spontaneously. Immediately following, it was noted to be intact with a 3 vessel cord. Uterine bleeding stable. The perineum and vagina were inspected and noted to have a first degree laceration and left labial laceration which was repaired with 3-0 Vicryl in the usual fashion. EBL was 150cc. Patient and infant tolerated delivery well. Apgars 9/9. Dr Gregorio notified of vaginal delivery and orders reviewed. Physician agrees with current plan of care. Presentation: Vertex Amniotic Membrane Rupture Type: Artificial Amniotic Fluid Description: Clear Placental Delivery Description: Spontaneous Placenta Disposition: [facility] Specimen collected: No Cord Vessel Description: 3 Vessels Cord Entanglement: None Infant A Gender: Female (1 minute): 9 (5 minute): 9 Delayed Cord Clamping: Yes Director Of Nursing traffic personnel supervisor: No Post Vaginal Deli Medications given after delivery: IV Pitocin Episiotomy Description: None Laceration: 1st degree Complication Complications: No Multi Select Codes Urinary/Genital Urinary/Genital CPT Codes: 09711 Vaginal Delivery+ PP Care([facility])
--- NOTE | 2025-10-29 22:53 | PCM.DC ---
Discharge Instructions DC O2, CPAP, BIPAP needs Home O2 Discharge instructions: No Dressing / Incision Discharge Activity: Return to Normal Activity May resume sexual activity in: 6-8 weeks Dressing / Incision Call your doctor if you observe: Fever of 101 or Higher, Coldness, Increased Pain, Numbness or Tingling, Change in Color, Inability to urinate, Inability to have a bowel movement, Using more than 1 pad per hour, Shortness of breath, Dizziness, Fainting spells, Swelling in the ankles, Chest pain, Increased palpitations (irregular heartbeat), Calf discomfort and Uncontrolled pain Follow Up Care Please Follow Up With: Lisseth Roper CNM When: Please call the office to schedule your follow up appointment in 6 weeks. If you had high blood pressure please call to schedule an appointment in 2 weeks. Test Results: Test results from this visit will be discussed in further detail at your follow-up appointment, if applicable. Discharge Plan Admission Admit Date/Time: 10/29/25 16:45 Attending Provider: Lisseth Roper Primary Care Provider: Jie Rai Discharge Orders/Prescriptions Prescriptions: No Action PNV-[place] 28-1-300 mg capsule 1 cap PO DAILY Referrals / Follow Up: Jie Rai MD [Primary Care Provider, Internal Medicine]
[2025-10-29] MEDS: Oxytocin 15 Units/NS 250ml 15 UNITS/250 ML IV.SOLN 83 UNITS IV (23:10)
[2025-10-30] VITALS (14 sets, daily range): BP systolic 104–136; BP diastolic 57–73; PULSE 81–97; RESP 15–18; TEMP 36.3–37.1; O2SAT 97–100
--- NOTE | 2025-10-30 08:00 | PN.OBGYN_ITS ---
Subjective Subjective Patient doing well without complaints. Tolerating PO. Ambulating and voiding without difficulty. Feeding well. Denies chest pain, shortness of breath, calf pain/swelling, fevers, chills, lightheadedness. Objective Data Objective Data Vital Signs: Vital Signs Temp Pulse Resp BP Pulse Ox O2 Del Method 98.8 F 84 16 133/73 H 97 Room Air 10/30/25 03:43 10/30/25 03:43 10/30/25 03:43 10/30/25 03:43 10/30/25 03:43 10/30/25 03:43 Oxygen Delivery Method Room Air Weight: 258 lb 13.163 oz Body Mass Index (BMI) 41.8 Intake & Output: Intake and Output for Last 24 Hours 10/28/25 10/29/25 10/30/25 23:59 23:59 23:59 Intake Total 2177.9 / 2177.9 250 / 250 Output Total 300 / 300 Balance 1877.9 / 1877.9 250 / 250 Lab / Micro Data 10/29/25 17:10 Labs: Laboratory Results - last 24 hr 10/29/25 17:10: WBC 10.1, RBC 3.99 L, Hgb 12.1, Hct 37.0, MCV 92.7, MCH 30.3, MCHC 32.7, RDW Std Deviation 53.2 H, RDW Coeff of Keila 15.6 H, Plt Count 223, MPV 9.7, Immature Gran % (Auto) 0.600, Neut % (Auto) 48.7, Lymph % (Auto) 45.9 H, [place] % (Auto) 4.2, Eos % (Auto) 0.4, Baso % (Auto) 0.2, Absolute Neuts (auto) 4.9, Absolute Lymphs (auto) 4.63 H, Nucleated RBC % 0, Differential Comment SCANNED, Platelet Estimate ADEQUATE, Syphilis Total Ab Nonreactive, Blood Type A POSITIVE, Antibody Screen NEGATIVE Radiography Diagnostic Testing: Radiology Impression Biophysical Profile Ultrasound 10/29/25 14:32 IMPRESSION: BIOPHYSICAL PROFILE SCORE 6 /8. Reading Location: [facility] Physical Exam Const alert and oriented x3 HEENT normocephalic Eyes PERRL Neck full ROM Resp normal respiratory effort GI soft to palpation GI Narrative: FF below U Assessment & Plan (1) Vaginal delivery: COMMENT: KW 37.3 girl BPP 6/8 and advanced dilation (2) Depression: QUALIFIERS: Depression Type: unspecified Qualified Code(s): F32.A - Depression, unspecified COMMENT: sertraline PLAN: Plan s/p PPD # 1 1. routine post delivery care 2. breast feeding- support given 3. rh positive 4. rubella immune
[2025-10-30] MEDS: GLYCERIN/WITCH HAZEL (TUCKS) MED..PAD 1 EACH TOPICAL (20:02)
[2025-10-30] MEDS: Benzocaine/Lanolin/Aloe Vera 85 GM Spray 1 SPRAY TOPICAL (20:02)
[2025-10-30] MEDS: SELF ADMINISTRATION OF MEDS 1 EACH NOTE (22:30)
[2025-10-31 02:00] VITALS: BP 103/68; PULSE 85; RESP 17; TEMP 36.4; O2SAT 97
[2025-10-31] MEDS: GLYCERIN/WITCH HAZEL (TUCKS) MED..PAD 1 EACH TOPICAL ×2 (05:30→10:19)
[2025-10-31] MEDS: Benzocaine/Lanolin/Aloe Vera 85 GM Spray 1 SPRAY TOPICAL ×2 (05:30→10:19)
[2025-10-31 08:00] VITALS: BP 109/61; PULSE 102; RESP 18; TEMP 37.1; O2SAT 96
[2025-10-31] MEDS: Senna/Docusate Sodium 1 Tablet PO (08:09)
--- NOTE | 2025-10-31 08:26 | PN.OBGYN_ITS ---
Subjective Subjective Patient doing well without complaints. Tolerating PO. Ambulating and voiding without difficulty. Feeding well. Denies chest pain, shortness of breath, calf pain/swelling, fevers, chills, lightheadedness. Objective Data Objective Data Vital Signs: Vital Signs Temp Pulse Resp BP Pulse Ox O2 Del Method 97.6 F L 85 17 103/68 97 Room Air 10/31/25 02:00 10/31/25 02:00 10/31/25 02:00 10/31/25 02:00 10/31/25 02:00 10/31/25 02:00 Oxygen Delivery Method Room Air Weight: 258 lb 13.163 oz Body Mass Index (BMI) 41.8 Intake & Output: Intake and Output for Last 24 Hours 10/29/25 10/30/25 10/31/25 23:59 23:59 23:59 Intake Total 2177.9 / 2177.9 250 / 250 Output Total 300 / 300 1000 / 1000 Balance 1877.9 / 1877.9 -750 / -750 Lab / Micro Data Attestation: I reviewed the patient's lab results. 10/29/25 17:10 ROS Constitutional Constitutional: Reports systems reviewed and no addt'l complaints, except as documented; Denies anorexia or headache(s) Cardiovascular Cardiovascular: Reports systems reviewed and no addt'l complaints, except as documented; Denies dizziness, dyspnea, nausea or tachypnea Respiratory/Chest Respiratory/Chest: Reports systems reviewed and no addt'l complaints, except as documented; Denies cough, dyspnea, shortness of breath at rest or tachypnea Gastrointestinal Gastrointestinal: Reports systems reviewed and no addt'l complaints, except as documented; Denies abdominal pain, constipation or nausea Genitourinary Genitourinary: Reports systems reviewed and no addt'l complaints, except as documented; Denies burning urination, difficulty urinating, dysuria, urinary frequency or urinary incontinence Musculoskeletal Musculoskeletal: Reports systems reviewed and no addt'l complaints, except as documented Integumentary Integumentary: Reports systems reviewed and no addt'l complaints, except as documented Neurologic Neurologic: Reports systems reviewed and no addt'l complaints, except as documented; Denies abnormal speech, dizziness or headache(s) Psychiatric Psychiatric: Reports systems reviewed and no addt'l complaints, except as documented Endocrine Endocrinology: Reports systems reviewed and no addt'l complaints, except as documented Hematologic/Lymphatic Hematologic/Lymphatic: Reports systems reviewed and no addt'l complaints, except as documented Physical Exam Const alert, oriented x3 and no apparent distress Neck full ROM Resp normal respiratory effort, normal air movement and no retractions Effort and Inspection: able to speak in complete sentences and symmetric chest movement GI soft to palpation Bladder / Kidney Exam: bladder normal to palpation Uterus Palpation: uterus fundus firm Extremity normal to inspection and full ROM Psych mental status grossly normal, thought process normal and cooperative Assessment & Plan (1) Vaginal delivery: COMMENT: KW 37.3 girl BPP 04/27 and advanced dilation PLAN: s/p PPD # 2 1. routine post delivery care 2. breast feeding- support given 3. rh positive 4. rubella immune 5. Discharge home (2) Encounter for induction of labor: COMMENT: BPP 04/27 and advanced dilation (3) Fatty liver: (4) Threatened labor, antepartum: COMMENT: s/p initial steroid course 09/04- and rescue steroid course 10/02- (5) UTI in : QUALIFIERS: Trimester: third trimester Qualified Code(s): O23.43 - Unspecified infection of urinary tract in , third trimester (6) labor: QUALIFIERS: labor trimester: third trimester labor delivery status: without delivery Qualified Code(s): O60.03 - labor without delivery, third trimester COMMENT: transported 09/04 given steroids. 3 cm no cervical change. vertex (7) Contraception management: QUALIFIERS: Contraceptive encounter type: sterilization Qualified Code(s): Z30.2 - Encounter for sterilization COMMENT: Wants tubal 6 wk pp. title 19 signed - scanned 09/30/25 (8) Morbid obesity: COMMENT: BMI 41 growth US q 4 weeks, weekly nsts 34 weeks on (9) Fatty liver in mother during : (10) Family history of autism in sibling: COMMENT: Brother (11) History of marijuana use: COMMENT: Stopped with +HPT, informed of tox screen inital & random (12) Hx of hemorrhage, currently : COMMENT: no transfusion (13) Anxiety: (14) Depression: QUALIFIERS: Depression Type: unspecified Qualified Code(s): F32.A - Depression, unspecified COMMENT: sertraline (15) Supervision of high-risk : QUALIFIERS: Trimester: third trimester Qualified Code(s): O09.93 - Supervision of high risk , unspecified, third trimester COMMENT: PRR , BRIANA 11/10/25, girl Amira ABHAY Marroquin (16) : QUALIFIERS: Weeks of gestation: 37 weeks Qualified Code(s): Z 3A.37 - 37 weeks gestation of COMMENT: elects NIPT: low risk, female, never had & declines carrier testing Charges/Coding Multi Select Codes Urinary/Genital Urinary/Genital CPT Codes: No Charge
--- NOTE | 2025-10-31 08:27 | DS.PCM_ITS ---
Providers Date of Admission: 10/29/25 Date of Discharge: 10/31/25 Primary Care Physician: Dr. Jie Rai MD Reason For Visit: LABOR AND DELIVERY Diagnosis Discharge Diagnosis (1) Vaginal delivery: Status: Acute Code(s): O80 - Encounter for full-term uncomplicated delivery Plan: s/p PPD # 2 1. routine post delivery care 2. breast feeding- support given 3. rh positive 4. rubella immune 5. Discharge home (2) Encounter for induction of labor: Status: Acute Code(s): Z34.90 - Encounter for supervision of normal , unspecified, unspecified trimester (3) Fatty liver: Status: Acute Code(s): K76.0 - Fatty (change of) liver, not elsewhere classified (4) Threatened labor, antepartum: Status: Acute Code(s): O47.00 - False labor before 37 completed weeks of gestation, unspecified trimester (5) UTI in : Status: Acute Code(s): O23.40 - Unspecified infection of urinary tract in , unspecified trimester Qualifiers: Trimester: third trimester Qualified Code(s): O23.43 - Unspecified infection of urinary tract in , third trimester (6) labor: Status: Acute Code(s): O60.00 - labor without delivery, unspecified trimester Qualifiers: labor trimester: third trimester labor delivery status: without delivery Qualified Code(s): O60.03 - labor without delivery, third trimester (7) Contraception management: Status: Acute Code(s): Z30.9 - Encounter for contraceptive management, unspecified Qualifiers: Contraceptive encounter type: sterilization Qualified Code(s): Z30.2 - Encounter for sterilization (8) Morbid obesity: Status: Acute Code(s): E66.01 - Morbid (severe) obesity due to excess calories (9) Fatty liver in mother during : Status: Acute Code(s): O26.619 - Liver and biliary tract disorders in , unspecified trimester; K76.0 - Fatty (change of) liver, not elsewhere classified (10) Family history of autism in sibling: Status: Acute Code(s): Z81.8 - Family history of other mental and behavioral disorders (11) History of marijuana use: Status: Acute Code(s): 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, unspecified, in remission (12) Hx of hemorrhage, currently : Status: Acute Code(s): O09.299 - Supervision of with other poor reproductive or obstetric history, unspecified trimester (13) Anxiety: Status: Acute Code(s): F41.9 - Anxiety disorder, unspecified (14) Depression: Status: Acute Code(s): F32.A - Depression, unspecified Qualifiers: Depression Type: unspecified Qualified Code(s): F32.A - Depression, unspecified (15) Supervision of high-risk : Status: Acute Code(s): O09.90 - Supervision of high risk , unspecified, unspecified trimester Qualifiers: Trimester: third trimester Qualified Code(s): O09.93 - Supervision of high risk , unspecified, third trimester (16) : Status: Acute Code(s): Z34.90 - Encounter for supervision of normal , unspecified, unspecified trimester Qualifiers: Weeks of gestation: 37 weeks Qualified Code(s): Z3A.37 - 37 weeks gestation of Medications at Discharge Home Medications multivit-min no.71-iron fum 28 mg-folate no.1 1 mg-dha 300 mg capsule (PNV- Limestone) 1 cap PO DAILY 03/27/25 Hospital Course Operations None Procedures None Summary of Care Provided Minutes Spent on Discharge: 10 Physical Exam Const alert, oriented x3 and no apparent distress Neck full ROM Resp normal respiratory effort, normal air movement and no retractions Effort and Inspection: able to speak in complete sentences and symmetric chest movement GI soft to palpation Bladder / Kidney Exam: bladder normal to palpation Uterus Palpation: uterus fundus Extremity normal to inspection and full ROM Psych mental status grossly normal, thought process normal and cooperative Weight / BMI Weight Weight: 258 lb 13.163 oz Body Mass Index (BMI) 41.8 PRE- weight 258 lb PRE- Body Mass Index 41.4 (BMI) ABG / Lab / Microbiology Data 10/29/25 17:10 D/C Instructions May shower in (days): 0 May resume sexual activity in: 6-8 weeks Weight Bearing Status: Full weight bearing Call your doctor if your incision/area has: Continuous Slow Oozing, Sudden Increased Bleeding, Increased Pain/ Swelling, Increased Redness and Foul Smelling Discharge Call your doctor if you observe: Fever of 101 or Higher, Coldness, Increased Pain, Numbness or Tingling, Change in Color, Inability to urinate, Inability to have a bowel movement, Using more than 1 pad per hour, Shortness of breath, Dizziness, Fainting spells, Swelling in the ankles, Chest pain, Increased palpitations (irregular heartbeat), Calf discomfort and Uncontrolled pain Suture Line Care: Avoid Pulling/Pushing and Avoid Pinching/Bending Cleanse incision/area with: Soap & Water and Keep Dressing Clean & Dry DC O2, CPAP, BIPAP Needs Home O2 Discharge instructions: No Please Follow Up With: Lisseth Roper CNM When: Please call the office to schedule your follow up appointment in 6 weeks. If you had high blood pressure please call to schedule an appointment in 2 weeks. Meaningful Use Info Meaningful Use Meaningful Use Diagnoses (Choose all that apply): None applicable Discharge Plan Admission Admit Date/Time: 10/29/25 16:45 Attending Provider: Lisseth Roper Primary Care Provider: Jie Rai Discharge Orders/Prescriptions Prescriptions: No Action PNV-Limestone 28-1-300 mg capsule 1 cap PO DAILY Referrals / Follow Up: Jie Rai MD [Primary Care Provider, Internal Medicine] Charges/Coding Multi Select Codes Urinary/Genital Urinary/Genital CPT Codes: No Charge
--- NOTE | 2025-10-31 08:59 | CASEMGMT ---
Social Work Assessment Labor and Delivery Unit Patient Address: [address] [place] [address] [place] [address] Phone number: [phone] Date of Referral: 10/30/25 Time of Referral:? 1639 Referred By: Lisseth Roper Date of Intervention: 10/30/25?? Time of Intervention:? 1230 Reason for Referral:? Mental Health Sw completed chart review and acknowledges social work consult. Sw presented to bedside and introduced self to mother of baby, JACKIE Baumann. Sw explained reason for sw involvement and completed psychosocial assessment. History obtained from: medical records, MOB Household composition: Currently residing in the home is ABHAY GONZALEZ, CARLOS's 2 year old son: Ayaan and maternal grandma. CARLOS denies any concerns with housing, stating that her house is safe and secure. Patient's parent/guardian status:?CARLOS states that she and FOB (Boo Rivera) have known each other since they were 15 years old. However they have only been together for 9 months. CARLOS states that she and ABHAY are in a healthy relationship, and although baby was not planned, it is welcomed. CARLOS states that she is currently still but is in the process of finalizing her divorce with him. ? Medical History: ?CARLOS is 25 year old female who is 2, para 1- now 2 following labor and delivery of . CARLOS received routine care during with [place] [facility]. CARLOS presented to hospital and delivered baby on 10/29/25. Baby girl, named Pretty, was born weighing 7lbs 3oz and had apgars of 9 and 9 at one and five minutes of life, respectfully. CARLOS is breast and bottle feeding and states that baby will be followed by Dr. Stover for pediatric care and follow up. Educational Status:? CARLOS and ABHAY both graduated from high school. ABHAY is currently in college studying business. No concerns regarding reading, learning or comprehension. Financial Status: CARLOS is currently employed by the [employer] and ABHAY is not employed as he is in school time signal wirer. Infant Supplies:?All necessary baby supplies obtained, including: car seat, safe sleep space, clothes, diapers and wipes. ? Childcare/Caregiver(s):?CARLOS and FOB will be the primary caregivers to baby. Transportation:?Both parents have their drivers license and reliable means of transportation, no barriers. Programs/Agencies Involved: ?CARLOS is connected to [facility] for food benefits and WIC. ?? Children Services/Legal Issues:???No history of children services involvement, no issues or concerns warranting referral to be made at this time. Behavioral Health Issues: ??Mental Health History: ABHAY reports that he has been diagnosed with depression and BiPolar disorder. ABHAY states that his symptoms are managed with medication and he is seen regularly be a Dr. Reed at [facility] in [place]. MOB state states that she has been diagnosed with anxiety and did experience anxiety after her first baby was born. CARLOS states that she started to experience anxiety almost immediately after he was born, stating that she talked to her doctor and got prescribed medication. CARLOS states that she was in an unhealthy relationship at that time, and she knows that had a lot to do with her mental health. Currently CARLOS states that she is doing well mentally, she did not experience any mental health symptoms during her , and thus far reports to feeling good following delivery. CARLOS is not prescribed any medication and is not connected to any mental health community resources. ? Substance Use History:?CARLOS reports that she did use THC prior to discovering that she was . MOB states that when she learned of at 5 weeks , she stopped using and denies any use during . MOB states that now that baby is born she does not have any intentions of beginning to use again. ? Family History:?MOB denies any family history of addiction or significant mental health history. ? Drug Screens: ?CARLOS urine drug screen was presumptive positive on 04/07/25. NO urine drug screen seen at time of delivery. ? Family/Social Stressors:? MOB denies any issues, stressors or concerns at this time. Support Systems: MOB states that ABHAY and her mom are her biggest supports at this time. Depression/Shaken Baby/Safe Sleeping:? MOB and sw discussed and talked about signs and symptoms of baby blues and mood and anxiety disorders following and delivery. MOB states that when she had her first baby she was experiencing panic attacks prior to leaving the hospital, and this time she is feeling really good. MOB states that she is aware of what to be on the lookout for regarding symptoms. MOB states that ABHAY is a really good support to her and would be able to recognize if she is struggling and would know how to help her. MOB also states that because he has also struggled with his own mental health he is more understanding of what she is going through. Sw expressed importance of safe sleep inside and outside of the bedroom. Sw educated MOB on always placing baby in bedside bassinet and not sleeping with baby in bed with her. Sw explained that baby's bassinet should be free of any blankets, pillows or stuffed animals. And baby should be sleeping in a onsie and a sleep sack/ swaddle sack for sleep. MOB expressed understanding. Sw discouraged sleeping with baby on a couch or in a reclining chair explaining that sleep accidents also happen in those areas as well. Sw educated MOB on shaken baby prevention. MOB expressed understanding. ASSESSMENT:? MOB and baby admitted following labor and delivery of . MOB with mental health history of anxiety and did experience anxiety after the delivery of her first baby two years ago. MOB states that at that time she was experiencing significant symptoms prior to being discharged from the hospital, and states that she feels completely different this time. MOB states that she feels more prepared this time as a mom, and more confident in how to care for a . MOB states that she is also in a new and more healthy relationship with a partner who is more supportive and will be more involved. MOB states that she had used THC prior to discovering she was , and then discontinued use. MOB states that she will engage in use again at some point, but does not plan on any time soon. Education provided on abstaining from use while providing breast milk to baby, MOB expressed understanding. MOB has natural supports in place and has all necessary baby items for baby. PLAN:? No other services requested or indicated. MOB and baby to be discharged when medically ready. Parents were provided literature regarding: signs and symptoms of baby blues and mood and anxiety disorders, Help Me Grow, shaken baby prevention, ABCs of safe sleep and a list of county resources that are available for them should any needs present themselves. Quyen Markham, TOOL MAKER, [employer]MING [employer]TER [employer]ACHINE
[2025-10-31] MEDS: SELF ADMINISTRATION OF MEDS 1 EACH NOTE (10:18)
--- NOTE | 2025-11-04 15:23 | NURSING ---
Follow up phone call made. All of the family got sick after going home, states her toddler has the flu and now they all seem to have it. Her bleeding is decreasing and she denied and headaches, visual disturbances, or baby blues. States that Pretty is taking 2 ounces every 2-3 hours. Denies any questions or concerns at this time.
== END 2025-10-31 11:30 | disposition home or self-care (01) | DRG 560 ==
LOC: LAB 16:48 → WP 16:48
PROVIDERS: Admitting Provider Advanced Practice Midwife; PCP Internal Medicine; Referring Provider Advanced Practice Midwife; Visit Provider Advanced Practice Midwife
DX: O36.8330 Maternal care for abnormalities of the fetal heart rate or rhythm, third trimester, not applicable or unspecified (principal); Z37.0 Single live birth; O23.43 Unspecified infection of urinary tract in pregnancy, third trimester; K76.0 Fatty (change of) liver, not elsewhere classified; F32.A Depression, unspecified; O99.324 Drug use complicating childbirth; O99.214 Obesity complicating childbirth; E66.01 Morbid (severe) obesity due to excess calories; F41.9 Anxiety disorder, unspecified; F12.91 Cannabis use, unspecified, in remission; Z81.8 Family history of other mental and behavioral disorders; Z87.891 Personal history of nicotine dependence; Z3A.37 37 weeks gestation of pregnancy; O99.344 Other mental disorders complicating childbirth; O26.62 Liver and biliary tract disorders in childbirth; O99.63 Diseases of the digestive system complicating the puerperium; O47.03 False labor before 37 completed weeks of gestation, third trimester; O70.0 First degree perineal laceration during delivery
CPT/HCPCS: 59025; 59050; 76819; 85025; 86780; 86850; 86900; 86901; 99221; G0378; J2405